=== PATIENT | female | born 1955 | race Caucasian/White ===

== ENCOUNTER 2016-06-30 11:09 | Outpatient (CLI) | payer OTHER ==
[~2016-06-30] VITALS: Ht 160 cm; Wt 120.0 kg
[2016-06-30] VITALS (21 sets, daily range): BP systolic 130–174; BP diastolic 54–78; PULSE 55–69; RESP 15–44; TEMP 98.4; O2SAT 93–100; Ht 160 cm; Wt 120.0 kg
[~2016-06-30 11:09] MED LIST: ASPI325T PO; ATEN100T PO; FLUO20CA30 PO; HYDR-4009 PO; NORMAL SALINE 1,000 ML IV SCH; OMEP20CA10 PO; TRIA1TAB3 PO
--- NOTE | 2016-06-30 11:16 | NUR ---
Admit Pt admitted to room 122 at this time via wc. Pt transferred to bed with assist x1 and unsteady gait. Knee brace noted to lower extremity. Will continue to monitor.
--- NOTE | 2016-06-30 11:21 | NUR ---
ADMIT-ADDITIONAL PT WEARING LEFT ANKLE BRACE AND HEART MONITOR. TAPE THROUGHOUT BODY FROM REHAB FOR NERVE CONTROL.
[2016-06-30 11:54] LABS: BASOPHILS % (AUTO) 0.4 % (0-2); EOSINOPHILS # (AUTO) 0.3 T/MM3 (0-0.5); EOSINOPHILS % (AUTO) 3.6 % (0-4); HCT - HEMATOCRIT 35.4 % (36-46); IMMATURE GRANULOCYTE # (AUTO) 0.01 T/MM3 (0.00-0.03); IMMATURE GRANULOCYTE % (AUTO) 0.1 % (0.0-0.5); LYMPHOCYTES # (AUTO) 1.6 T/MM3 (1-4.8); LYMPHOCYTES % (AUTO) 22.2 % (23-45); MEAN CORPUSCULAR HGB 30.1 UUG (26-34); MEAN CORPUSCULAR HGB CONC(MCHC 33.9 GM/DL (31-37); MEAN CORPUSCULAR VOLUME 88.7 UM3 (80-100); MONOCYTES # (AUTO) 0.5 T/MM3 (0-0.8); MONOCYTES % (AUTO) 6.5 % (0-9.0); NEUTROPHILS #(AUTO)-ABSOLUTE 4.9 T/MM3 (1.8-7.7); NEUTROPHILS % (AUTO) 67.2 % (33-66); RED BLOOD COUNT 3.99 M/MM3 (4.00-5.20); WBC - WHITE BLOOD COUNT 7.3 T/MM3 (4.5-11.0)
[2016-06-30 12:02] LABS: ANION GAP 11 MEQ/L (5-15); BUN/CREATININE RATIO 21 RATIO (6-26); CALCIUM 9.5 MG/DL (8.4-10.2); CHLORIDE 96 MEQ/L (98-107); CO2 - CARBON DIOXIDE 23 MEQ/L (22-30); GLOMERULAR FILTRATION RATE 56; GLUCOSE 103 MG/DL (65-110); POTASSIUM 4.1 MEQ/L (3.6-5); SODIUM 130 MEQ/L (134-144)
--- NOTE | 2016-06-30 12:25 | NUR ---
MACHINE SIZER REVIEWED ALLERGY WITH Samuel MINA RN. PT WILL RECEIVE BENADRYL IN MACHINE SIZER.
--- NOTE | 2016-06-30 12:30 | NUR ---
TRANSFER TO PROCESS CONTROL ENGINEER. PT AMBULATORY WITH PERSONAL WHEELED WALKER TO CART. PT A&OX3. DENIES SOA, CP AND N/V.
[2016-06-30] MEDS ORDERED: SALINE FLUSH 10ml SYRINGE ONE ×2 (12:33→12:37)
[2016-06-30] MEDS ORDERED: FENTANYL 100mcg/2ml INJECTION ONE ×2 (12:36→13:12)
[2016-06-30] MEDS ORDERED: MIDAZOLAM 2mg/2ml INJECTION ONE (12:37)
[2016-06-30] MEDS ORDERED: HEPARIN 1,000units in NS 500ml BAG IV ONE (12:38)
[2016-06-30] MEDS ORDERED: LIDOCAINE 1% (10mg/ml) 30ml SDV ONE (12:38)
[2016-06-30] MEDS ORDERED: DiphenhydrAMINE 50 MG/ML INJECTION ONE (12:41)
--- NOTE | 2016-06-30 12:50 | NUR ---
CHAKA NULL ATTEMPTED TO VISIT PATIENT, SHE IS IN THE BAND SAW OPERATOR AT THIS TIME. NO FAMILY PRESENT IN THE ROOM.
[2016-06-30] MEDS ORDERED: IOHEXOL 350mg/ml 200ml BOTTLE ONE (13:20)
[2016-06-30] MEDS ORDERED: PROMETHAZINE 25 MG INJECTION IV PRN (13:30)
[2016-06-30] MEDS ORDERED: ATROPINE 1 MG/ML VIAL IV PRN (13:30)
[2016-06-30] MEDS ORDERED: BISACODYL 5 MG E.C. TABLET PO PRN (13:30)
[2016-06-30] MEDS ORDERED: ONDANSETRON 4mg/2ml INJECTION IV PRN (13:30)
[2016-06-30] MEDS ORDERED: LORAZEPAM 2 MG/ML INJECTION IV PRN (13:30)
[2016-06-30] MEDS ORDERED: LORAZEPAM 1 MG TABLET PO PRN (13:30)
[2016-06-30] MEDS ORDERED: MORPHINE SULFATE 4 MG SYRINGE IV PRN (13:30)
[2016-06-30] MEDS ORDERED: NITROGLYCERIN 0.4 MG SUBLINGUAL TABLET SL PRN (13:30)
[2016-06-30] MEDS ORDERED: HYDROCODONE/APAP 5 mg/325 mg TABLET PO PRN ×2 (13:30)
[2016-06-30] MEDS ORDERED: BISACODYL 10 MG SUPPOSITORY RECTALLY PRN (13:30)
[2016-06-30] MEDS ORDERED: MAG-AL + SIM LIQUID 30 ML UDC PO PRN (13:30)
[2016-06-30] MEDS ORDERED: METOCLOPRAMIDE 10mg/2ml INJECTION IV PRN (13:30)
[2016-06-30] MEDS ORDERED: MILK OF MAGNESIA 30 ML SUSP PO PRN (13:30)
[2016-06-30] MEDS ORDERED: ACETAMINOPHEN 325 MG TABLET PO PRN (13:30)
--- NOTE | 2016-06-30 13:45 | NUR ---
RECEIVED FROM DIRECTOR CORPORATE. PT A&OX3. TRANSFERRED FROM CART TO BED X3 ASSIST. PT IS CRYING, REPORTING HIP PAIN.
[2016-06-30] MEDS: MORPHINE SULFATE 4 MG SYRINGE IV PRN ×2 (13:47→15:54)
--- NOTE | 2016-06-30 14:05 | NUR ---
PAIN PT REPORTING PAIN 10/10 IN RT HIP. PT REPORTS THIS IS DUE TO LIMITED MOVEMENT. RN ADMINISTERED PRN MORPHINE AND NORCO. WILL CONTINUE TO MONITOR.
--- NOTE | 2016-06-30 14:09 | NUR ---
CHAKA NULL IN TO VISIT PATIENT, SHE IS A&O. IS AT THE BEDSIDE. PATIENT PLANS TO DISCHARGE HOME, SAID THAT HE CAN HELP HER AND HAS TAKEN A COUPLE DAYS OFF WORK. CM CONTACT INFORMATION GIVEN. MARION SIGNED. LACE SCORE IS 1, NO FURTHER FOLLOW UP IS INDICATED. Addendum: 06/30/16 at 1410 by WILFRED HASKINS RN Amended: Links added.
--- NOTE | 2016-06-30 14:31 | CVPROF ---
DATE OF PROCEDURE June 30, 2016 HISTORY The patient is a 60-year-old lady with history of recurrent TIAs and was referred for further evaluation by carotid angiogram. Informed consent was obtained after explaining the procedure and the potential risks to the patient who agreed to proceed with the procedure. PROCEDURE 1. Aortic arch angiography by placing catheter in aortic arch. 2. Selective carotid angiography by placing catheter in right and left common carotid arteries. 3. Right femoral angiography to visualize the vessel for Mynx deployment. 4. Successful Mynx deployment for hemostasis. TECHNIQUE She was prepped and draped in the usual sterile techniques. Conscious sedation was performed using Versed and fentanyl. 1% lidocaine was used for local anesthesia. Using modified Seldinger technique, arterial access was obtained into the right femoral artery with placement of a 6-Uzbek arterial sheath. AORTIC ARCH ANGIOGRAPHY Aortic arch angiography showed patent brachiocephalic with left common carotid artery coming off of the brachiocephalic artery. Left subclavian artery was patent. SELECTIVE CAROTID ANGIOGRAPHY Right common carotid artery was free of significant lesions. Right internal carotid artery is patent with no significant lesions. Right external carotid artery is patent with no significant lesions. Left common carotid artery is free of significant lesions. Left internal carotid artery is free of significant lesions. Left external carotid artery has about 30% stenosis. Right femoral angiography showed patent common femoral, proximal SFA and profunda and therefore Mynx was used for hemostasis. IMPRESSION 1. No significant carotid obstructive disease. 2. Successful Mynx deployment for hemostasis. PLAN Medical management. CHIDI
--- NOTE | 2016-06-30 14:32 | TEEF ---
DATE OF PROCEDURE June 30, 2016 HISTORY The patient is a 61-year-old lady with recurrent TIAs and was referred for further evaluation by transesophageal echocardiogram. Informed consent was obtained after explaining the procedure and the potential risks to the patient who agreed to proceed with the procedure. PROCEDURE Transesophageal echocardiogram. DESCRIPTION OF PROCEDURE Conscious sedation was performed using Versed and fentanyl. Cetacaine spray was used for pharyngeal anesthesia. Probe was advanced into the esophagus and stomach and images were obtained in multiple planes. Left atrium is normal. Left ventricular end-diastolic dimension is normal. Left ventricular wall thickness is normal. LV systolic function is normal with ejection fraction of about 65%. Right atrium is normal. Right ventricle is normal. Aortic root dimension is normal. There is no thrombus or mass in left atrium, left atrial appendage or left ventricle. Mitral valve is morphologically normal with mwwk-ju-dbhxpbot mitral regurgitation. Aortic valve is a trileaflet structure with no stenosis. Trace of aortic insufficiency is present. Tricuspid valve shows mild tricuspid regurgitation. Pulmonary valve appears to be normal. There is no pericardial effusion. Agitated saline was injected which showed no evidence of gwcfa-hq-xsas shunt. Descending thoracic aorta appears to be free of significant atherosclerosis. IMPRESSION 1. Normal LV systolic function with ejection fraction of 65%. 2. No intracardiac thrombus or mass. 3. No evidence of bvxjq-pl-scfa shunt using agitated saline. 4. Yprl-yl-pgjubftk mitral regurgitation. 5. Trace of aortic insufficiency. 6. Mild tricuspid regurgitation. MTDD
--- NOTE | 2016-06-30 16:00 | NUR ---
PAIN PT CONTINUES TO REPORT PAIN 7-10/10 IN RIGHT HIP. PT HAS BEEN REPOSITIONED SEVERAL TIMES AND ROLLED FOR [facility]ARE. PT REPORTS MOVEMENT RELIEVES PAIN. PRN TYLENOL AND MORPHINE GIVEN. WILL CONTINUE TO MONITOR.
--- NOTE | 2016-06-30 18:45 | NUR ---
STATUS/DISCHARGE PT IS A&OX3. PT REPORTS PAIN AT 3/10, "THIS IS TOLERABLE AND SOMEWHAT NORMAL I AM WAITING FOR HIP, KNEE AND ANKLE SURGERY." RT GROIN SITE IS ASYMPTOMATIC, DRESSING IS C/D/I. DISCONTINUED LT AC IV, CATHETER INTACT, SITE IS ASYMPTOMATIC. PT APPETITE GOOD FOR DINNER. REVIEWED DISCHARGE INSTRUCTIONS WITH PT AND , ANSWERING ALL QUESTIONS. PER DR. LIMON ORDER, PT IS TO CONTINUE TO WEAR HEART MONITOR UNTIL FOLLOW-UP APPT. PT AND COMMIT TO FOLLOW-UP APPT. RN PROVIDED MYNX BROCHURE, ENCOURAGING PT TO PLACE CARD IN [place]. PT COMMITS TO PLACE CARD IN [place]. RN ASSISTED PT WITH DRESSING. PT TRANSPORTED BY WHEELCHAIR TO ED ENTRANCE. DRIVING FAMILY CAR.
[2016-07-01] MEDS ORDERED: OMEPRAZOLE 20 MG CAPSULE PO SCH (06:30)
[2016-07-01] MEDS ORDERED: TRIAMTERENE/HCTZ 37.5mg/25mg TABLET PO SCH (09:00)
[2016-07-01] MEDS ORDERED: ASPIRIN 325 MG TABLET PO SCH (09:00)
[2016-07-01] MEDS ORDERED: FLUOXETINE 20 MG CAPSULE PO SCH (09:00)
[2016-07-01] MEDS ORDERED: ATENOLOL 100 MG TABLET PO SCH (09:00)
--- NOTE | 2016-07-02 11:28 | NUR ---
ATTEMPTED POST HOSPITAL FOLLOW UP PHONE CALL #1, NO ANSWER, NO MACHINE TO LEAVE A MESSAGE.
== END 2016-06-30 18:45 | disposition home or self-care (01) ==
LOC: CATH 11:09 → SRG 11:10 → CATH 18:45
PROVIDERS: ATTEND Internal Medicine Cardiovascular Disease
DX: I65.22 Occlusion and stenosis of left carotid artery (principal); Z86.73 Personal history of transient ischemic attack (TIA), and cerebral infarction without residual deficits; I08.1 Rheumatic disorders of both mitral and tricuspid valves; I10 Essential (primary) hypertension; I27.2 Other secondary pulmonary hypertension; E78.2 Mixed hyperlipidemia; K21.9 Gastro-esophageal reflux disease without esophagitis; Z79.82 Long term (current) use of aspirin; Z79.899 Other long term (current) drug therapy; Z82.3 Family history of stroke; Z82.49 Family history of ischemic heart disease and other diseases of the circulatory system
CPT/HCPCS: 36222; 80048; 85025; 93005; 93312; 93320; 93325; J1200; J1644; J2250; J2930; J3010; J7030; Q9967

== ENCOUNTER 2016-08-12 06:02 | Outpatient (CLI) | payer OTHER ==
[2016-08-12] VITALS (9 sets, daily range): BP systolic 142–172; BP diastolic 62–82; PULSE 60–73; RESP 19–20; TEMP 98–98.5; O2SAT 92–98; Ht 160 cm; Wt 119.9 kg
[~2016-08-12] VITALS: Ht 160 cm; Wt 119.9 kg
[~2016-08-12 06:02] MED LIST changes: -NORMAL SALINE 1,000 ML IV SCH; +P-EP-93 PO; +SALINE FLUSH 10ml SYRINGE IVF PRN
--- NOTE | 2016-08-12 06:10 | NUR ---
ADMIT PT ADMITTED TO ROOM 118 AT THIS TIME. AND DAUGHTER PRESENT IN ROOM UPON ADMIT. PT ALERT AND ORIENTED. WILL CONTINUE TO MONITOR.
[2016-08-12] MEDS ORDERED: AMLO5TAB2 PO (06:31)
[2016-08-12] MEDS ORDERED: PRED20TA PO (06:31)
[2016-08-12] MEDS ORDERED: NORMAL SALINE 1,000 ML IV ONE (07:00)
[2016-08-12 07:07] LABS: HCT - HEMATOCRIT 32.3 % (36-46); HGB - HEMOGLOBIN 10.9 GM/DL (12-16); MEAN CORPUSCULAR HGB CONC(MCHC 33.7 GM/DL (31-37); MEAN PLATELET VOLUME 10.9 UM3 (9.4-12.4); RED BLOOD COUNT 3.63 M/MM3 (4.00-5.20); WBC - WHITE BLOOD COUNT 7.7 T/MM3 (4.5-11.0)
[2016-08-12 07:16] LABS: ANION GAP 13 MEQ/L (5-15); BUN/CREATININE RATIO 26 RATIO (6-26); CALCIUM 9.5 MG/DL (8.4-10.2); CHLORIDE 101 MEQ/L (98-107); CO2 - CARBON DIOXIDE 23 MEQ/L (22-30); CREATININE 0.8 MG/DL (0.7-1.2); GLOMERULAR FILTRATION RATE 73; GLUCOSE 123 MG/DL (65-110); POTASSIUM 4.4 MEQ/L (3.6-5); SODIUM 137 MEQ/L (134-144)
[2016-08-12] MEDS ORDERED: LIDOCAINE 1% (10mg/ml) 30ml SDV ONE (07:18)
[2016-08-12] MEDS ORDERED: HEPARIN 1,000units in NS 500ml BAG IV ONE (07:18)
[2016-08-12] MEDS ORDERED: DiphenhydrAMINE 50 MG/ML INJECTION ONE (07:18)
[2016-08-12 07:20] LABS: LYMPHOCYTES # (MANUAL) 0.6 T/MM3 (1-4.8); MONOCYTES # (MANUAL) 0.2 T/MM3 (0-0.8); NEUTROPHILS #(MANUAL)-ABSOLUTE 6.9 T/MM3 (1.8-7.7); TOTAL CELLS COUNTED 100 %
[2016-08-12] MEDS ORDERED: IOHEXOL 350mg/ml 200ml BOTTLE ONE (07:20)
[2016-08-12] MEDS ORDERED: FENTANYL 100mcg/2ml INJECTION ONE ×2 (07:25→08:07)
[2016-08-12] MEDS ORDERED: MIDAZOLAM 2mg/2ml INJECTION ONE (07:25)
[2016-08-12] MEDS ORDERED: VERAPAMIL 5mg/2ml INJECTION IV ONE (07:28)
[2016-08-12] MEDS ORDERED: NITROGLYCERIN 50mg/10ml INJECTION IV ONE (07:28)
--- NOTE | 2016-08-12 07:36 | NUR ---
TO HEART CATH PATIENT TAKEN TO HEART CATH AT THIS TIME VIA CART AND SENIOR C WEB DEVELOPER STAFF. CHART, CONSENT AND BP CUFF SENT WITH PATIENT. PT STABLE AND ON ROOM AIR AT TIME OF TRANSFER. WILL CONTINUE TO MONITOR.
[2016-08-12] MEDS ORDERED: LORAZEPAM 0.5 MG TABLET PO PRN (08:15)
[2016-08-12] MEDS ORDERED: ACETAMINOPHEN 325 MG TABLET PO PRN (08:15)
[2016-08-12] MEDS ORDERED: MILK OF MAGNESIA 30 ML SUSP PO PRN (08:15)
[2016-08-12] MEDS ORDERED: BISACODYL 5 MG E.C. TABLET PO PRN (08:15)
[2016-08-12] MEDS ORDERED: HYDROCODONE/APAP 5 mg/325 mg TABLET PO PRN (08:15)
[2016-08-12] MEDS ORDERED: BISACODYL 10 MG SUPPOSITORY RECTALLY PRN (08:15)
[2016-08-12] MEDS ORDERED: ATROPINE 1 MG/ML VIAL IV PRN (08:15)
[2016-08-12] MEDS ORDERED: METOCLOPRAMIDE 10mg/2ml INJECTION IV PRN (08:15)
[2016-08-12] MEDS ORDERED: NITROGLYCERIN 0.4 MG SUBLINGUAL TABLET SL PRN (08:15)
[2016-08-12] MEDS ORDERED: LORAZEPAM 2 MG/ML INJECTION IV PRN (08:15)
[2016-08-12] MEDS ORDERED: MORPHINE SULFATE 4 MG SYRINGE IV PRN ×2 (08:15)
[2016-08-12] MEDS ORDERED: MAG-AL + SIM LIQUID 30 ML UDC PO PRN (08:15)
[2016-08-12] MEDS ORDERED: PROMETHAZINE 25 MG INJECTION IV PRN (08:15)
[2016-08-12] MEDS ORDERED: ONDANSETRON 4mg/2ml INJECTION IV PRN (08:15)
--- NOTE | 2016-08-12 09:06 | CVPROF ---
DATE OF PROCEDURE August 12, [address] Naina Luciano The patient is a pleasant 60-year-old lady with abnormal stress test and was referred for further evaluation by cardiac catheterization and possible intervention. Informed consent was obtained after explaining the procedure and the potential risks to the patient who agreed to proceed with the procedure. PROCEDURE 1. Left heart catheterization. 2. Coronary angiography. 3. Left ventriculography. TECHNIQUE The patient was prepped and draped in the usual sterile techniques. 1% lidocaine was used for local anesthesia. Using modified Seldinger technique, arterial access was obtained into the right radial artery with placement of a 6-Martiniquais arterial sheath. Conscious sedation was performed using Versed and fentanyl. 3000 units of heparin, 300 mcg of nitroglycerin, and 2.5 mg of verapamil were given through the arterial sheath. LEFT VENTRICULOGRAPHY Left ventriculography in single-plane ASHLEY shallow projection showed normal LV systolic function with ejection fraction of 65% with no mitral regurgitation or gradient across the aortic valve. LVEDP was about 35. CORONARY ANGIOGRAPHY Left main was free of significant lesions. Left anterior descending artery was occluded after the first diagonal with late filling of the LAD through the sats-bo-ztfi collaterals. First diagonal had about 70% ostial stenosis. Left circumflex artery had about 20% stenosis which consisted mainly of a large marginal. Right coronary artery was dominant with 90% stenosis. The patient tolerated the procedure well with no complications. IMPRESSION 1. Multivessel coronary artery disease as described above. 2. Normal LV systolic function with ejection fraction of 65%. 3. Elevated LV end-diastolic pressure. PLAN Will consult cardiovascular surgery for possible surgical revascularization of her coronary artery disease. CHIDI
--- NOTE | 2016-08-12 10:30 | NUR ---
DISMISSAL PATIENT DISMISSED TO [facility] VIA EMS AND CART. PT STABLE AND ON ROOM AIR AT TIME OF DISMISSAL. PACKETS TO EMS AND [place] SENT WITH PATIENT. REPORT GIVEN TO PARAMEDICS AT TIME OF TRANSFER. IV CATHETER REMAINS INTACT FOR TRANSPORT. PATIENT GIVEN EDUCATION ON TRANSFER, REASON FOR TRANSFER, ETC. PATIENT AND FAMILY VERBALIZED UNDERSTANDING. REPORT CALLED TO LAURA POLLARD AT [facility].
== END 2016-08-12 10:30 | disposition short-term general hospital (02) ==
LOC: SRG 06:02 → CATH 06:02
PROVIDERS: ATTEND Internal Medicine Cardiovascular Disease
DX: I25.10 Atherosclerotic heart disease of native coronary artery without angina pectoris (principal); R94.39 Abnormal result of other cardiovascular function study; I10 Essential (primary) hypertension; I65.23 Occlusion and stenosis of bilateral carotid arteries; I27.2 Other secondary pulmonary hypertension; E78.2 Mixed hyperlipidemia; G45.9 Transient cerebral ischemic attack, unspecified; K21.9 Gastro-esophageal reflux disease without esophagitis; Z79.82 Long term (current) use of aspirin; Z79.52 Long term (current) use of systemic steroids; Z79.899 Other long term (current) drug therapy; Z82.3 Family history of stroke; Z82.49 Family history of ischemic heart disease and other diseases of the circulatory system
CPT/HCPCS: 36415; 80048; 85007; 85027; 93005; 93458; C1893; J1200; J1644; J2250; J2930; J3010; J3490; J7030; Q9967

== ENCOUNTER 2016-08-20 16:14 | Inpatient (IN) ==
[2016-08-27] MEDS ORDERED: FLEET PHOSPHO - SODA ENEMA 133ml PR PRN (05:00)
[2016-08-27] MEDS ORDERED: DOCUSATE SODIUM 100 MG CAPSULE PO PRN (05:00)
[2016-08-27] MEDS ORDERED: ONDANSETRON ODT 4 MG TABLET PO PRN (05:00)
[2016-08-27] MEDS ORDERED: LORazepam 0.5 MG TABLET PO PRN (05:00)
[2016-08-27] MEDS ORDERED: BISACODYL 10 MG SUPPOSITORY RECTALLY PRN (05:00)
[2016-08-27] MEDS: FUROSEMIDE 20 MG TABLET PO SCH ×3 (08:37→17:07)
[2016-08-27] MEDS: FLUoxetine 20 MG CAPSULE PO SCH (08:37)
[2016-08-27] MEDS: FERROUS SULFATE 324 MG TABLET PO SCH ×2 (08:38→18:01)
[2016-08-27] MEDS: ASCORBIC ACID 500 MG TABLET PO SCH (08:38)
[2016-08-27] MEDS: ENOXAPARIN 40 MG/0.4 ML INJECTION SQ SCH (08:38)
[2016-08-27] MEDS: HYDROCODONE/APAP 5mg/325mg TABLET PO PRN ×3 (08:47→21:42)
[2016-08-27] MEDS: ACETAMINOPHEN 325 MG TABLET PO SCH ×2 (08:48→13:10)
[2016-08-27] MEDS: ASPIRIN 81 MG CHEWABLE TABLET PO SCH (09:19)
[2016-08-27] MEDS ORDERED: ACETAMINOPHEN 325 MG TABLET PO PRN (16:03)
--- NOTE | 2016-08-27 16:28 | Progress Note ---
Subjective: Krysta is seen today in follow up. She continues to have intermittent vaginal prolapses and she had multiple episodes of urinary incontinence over night and she was unable to sleep. She attributes the difficulty sleeping to the hip pain and urinary urgency. Pelvic speculum exam was performed by Dr Mdconald and myself. Patient does have moderate vaginal prolapse with bearing down. Prolapse easily retracts at rest. No vaginal bleeding or pain. Bowels are moving regularly. Objective Vital signs: Temp Pulse Resp BP Pulse Ox 97.9 F 105 H 16 133/81 96 08/27/16 08:21 08/27/16 08:21 08/27/16 08:21 08/27/16 08:21 08/27/16 08:21 Height: 1.6 m Weight: 123.9 kg Body Mass Index: 48.4 - Constitutional Present: no acute distress, well nourished - Routine HEENT Exam Eye: Present: EOMI, PERRL - Routine Respiratory Exam Present: CTA bilaterally - Routine Cardiovascular Exam Present: RRR, S1, S2 - Routine Abdominal Exam Present: soft, normoactive bowel sounds - Routine Rectal Exam Patient deferred: visual exam Visual: Absent: black stool, bloody stool, alberto blood - Routine Exam Patient deferred: perineal exam Genitals image: 1 - Vaginal Prolapse Comments: Using a speculum noted to have vaginal prolapse. Appears to possibly be anteriorly. Unable to distinguish if this is uterus versus bladder. - Routine Back/Spine/Pelvis Exam Back/Spine: Present: full ROM - Routine Musculoskeletal Exam Musculoskeletal: limited range of motion (Right hip due to pain) - Routine Skin Exam Present: intact Comments: [place] to bilateral lower ext intact - Routine Neurological Exam Present: alert, oriented X3, CN II-XII intact - Routine Psychiatric Exam Present: normal affect, normal thought process Results - Labs CBC & Chem 7: 08/21/16 05:30 08/21/16 05:30 Assessment and Plan (1) Vaginal prolapse Current visit: Yes Status: Acute (2) Right hip pain Current visit: Yes Status: Acute (3) S/P CABG x 3 Current visit: Yes Status: Chronic (4) CAD (coronary artery disease) Current visit: Yes Status: Chronic (5) Osteoarthritis Current visit: Yes Status: Chronic (6) Hx-TIA (transient ischemic attack) Current visit: Yes Status: Resolved DVT Prophylaxis: Lovenox Assessment and Plan: 08/27/16 Continue with current plan of care. Encourage work with PT and OT for ongoing strengthening. Change Lasix time to 6 a.m. and 2 p.m. to avoid increased urination at night. Given findings of vaginal prolapse. Discussed that she will need follow-up with gynecology. Did discuss using estrogen cream topically. At this point she would like to try controlling urination better with the Ditropan. Change tylenol to PRN and continue with PRN [place] for better pain control Discussed and taught regarding [place]agle exercises to strengthen pelvic muscles. Lovenox subcutaneous daily for DVT prophylaxis. Will only need aspirin 81 milligrams at time of discharge. Will reevaluate patient tomorrow. May be able to remove lower extremity alexis. Sepsis Assessment - Evaluation Sepsis screening result: No Definite Risk - Focused Exam Vital Signs Temp Pulse Resp BP Pulse Ox 08/27/16 08:21 97.9 F 105 H 16 133/81 96 Hospital Course Summary Disclaimer: The visit summary below is not to be considered part of the above Progress Note. Hospital Course: 08/27/16 16:27 Continue with current plan of care. Encourage work with PT and OT for ongoing strengthening. Change Lasix time to 6 a.m. and 2 p.m. to avoid increased urination at night. Given findings of vaginal prolapse. Discussed that she will need follow-up with gynecology. Did discuss using estrogen cream topically. At this point she would like to try controlling urination better with the Ditropan. Discussed and taught regarding Keagle exercises to strengthen pelvic muscles. Lovenox subcutaneous daily for DVT prophylaxis. Will only need aspirin 81 milligrams at time of discharge. Will reevaluate patient tomorrow. May be able to remove lower extremity alexis. 08/21 Agree with admission to IRU for ongoing strengthening. Monitor six lower extremity post-op incisions. Alexis may be removed on August 29 as long as there is no concerns. Steri-strips to be placed at that time. Place Joseph wrap to left lower extremity to aid with swelling. Continue with scheduled Lasix 20 milligrams twice a day. Continue with oral potassium supplementation 10 milliequivalents twice a day. Will periodically monitor electrolytes. Lovenox SQ daily for DVT prophylaxis. Will only need ASA 81 mg at time of discharge. Continue to monitor bowel motivation as patient has had some mild diarrhea intermittently. Will decrease Colace to as needed. Prozac daily for depression. Encourage work with PT/OT for ongoing strengthening. The hospitalist services will continue to follow patient medically manage her existing comorbidities during her stay on the IRU unit At time of discharge medical care will return to primary care provider, Dr. Naina Luciano from [place], [place].
[2016-08-27] MEDS: OXYBUTYNIN XL 5 MG TABLET PO SCH (18:00)
[2016-08-27] MEDS: OMEPRAZOLE 20 MG CAPSULE PO SCH (19:45)
[2016-08-27] MEDS: POLYETHYL GLYCOL 3350 17gm PACKET PO SCH (21:44)
[2016-08-28] MEDS: HYDROCODONE/APAP 5mg/325mg TABLET PO PRN ×4 (02:10→22:59)
[2016-08-28] MEDS: OMEPRAZOLE 20 MG CAPSULE PO SCH (05:52)
[2016-08-28] MEDS: FUROSEMIDE 20 MG TABLET PO SCH ×2 (05:53→14:04)
[2016-08-28] MEDS: FERROUS SULFATE 324 MG TABLET PO SCH ×2 (09:11→17:39)
[2016-08-28] MEDS: ASPIRIN 81 MG CHEWABLE TABLET PO SCH (09:11)
[2016-08-28] MEDS: FLUoxetine 20 MG CAPSULE PO SCH (09:12)
[2016-08-28] MEDS: OXYBUTYNIN XL 5 MG TABLET PO SCH (09:12)
[2016-08-28] MEDS: ASCORBIC ACID 500 MG TABLET PO SCH (09:12)
[2016-08-28] MEDS: ENOXAPARIN 40 MG/0.4 ML INJECTION SQ SCH (09:12)
--- NOTE | 2016-08-28 16:30 | Progress Note ---
Subjective: Krysta is seen today in follow up. Overall she feels that vaginal prolapse has improved today. She is pleased to report that frequent urination was less over night. No chest pain, shortness of breath or other problems. [place] to bilateral lower extremities appear to be well-healed Objective Vital signs: Temp Pulse Resp BP Pulse Ox 98.2 F 99 18 121/68 98 08/28/16 08:52 08/28/16 08:52 08/28/16 08:52 08/28/16 08:52 08/28/16 08:52 Height: 1.6 m Weight: 123.9 kg Body Mass Index: 48.4 - Constitutional Present: no acute distress, well nourished - Routine Respiratory Exam Present: CTA bilaterally - Routine Cardiovascular Exam Present: RRR, S1, S2 - Routine Abdominal Exam Present: soft, normoactive bowel sounds - Routine Extremities Exam Present: full ROM, tenderness (right hip) - Routine Back/Spine/Pelvis Exam Back/Spine: Present: full ROM - Routine Skin Exam Present: intact Comments: Alexis to bilateral lower extremity incisions appear well-healed - Routine Neurological Exam Present: alert, oriented X3, CN II-XII intact Results - Labs CBC & Chem 7: 08/21/16 05:30 08/21/16 05:30 Assessment and Plan (1) Vaginal prolapse Current visit: Yes Status: Acute (2) Right hip pain Current visit: Yes Status: Acute (3) S/P CABG x 3 Current visit: Yes Status: Chronic (4) CAD (coronary artery disease) Current visit: Yes Status: Chronic (5) Osteoarthritis Current visit: Yes Status: Chronic (6) Hx-TIA (transient ischemic attack) Current visit: Yes Status: Resolved Assessment and Plan: 08/28 Overall doing well. Continue with Ditropan to help with urination. Again, can consider an estrogen type cream for vaginal prolapse. At this point, patient would like to hold off on starting this. Order placed for nursing staff to remove all alexis to the lower extremities in place Steri-Strips over incisions. Continue with [place] for pain control. Encourage work with PT and OT for ongoing strengthening Sepsis Assessment - Evaluation Sepsis screening result: No Definite Risk - Focused Exam Vital Signs Temp Pulse Resp BP Pulse Ox 08/28/16 08:52 98.2 F 99 18 121/68 98 Respiratory exam: Present: CTA bilaterally Cardiovascular exam: Present: RRR, S1, S2 Hospital Course Summary Disclaimer: The visit summary below is not to be considered part of the above Progress Note. Hospital Course: 08/28 Overall doing well. Continue with Ditropan to help with urination. Again, can consider an estrogen type cream for vaginal prolapse. At this point, patient would like to hold off on starting this. Order placed for nursing staff to remove all alexis to the lower extremities in place Steri-Strips over incisions. Continue with [place] for pain control. Encourage work with PT and OT for ongoing strengthening 08/27/16 Continue with current plan of care. Encourage work with PT and OT for ongoing strengthening. Change Lasix time to 6 a.m. and 2 p.m. to avoid increased urination at night. Given findings of vaginal prolapse. Discussed that she will need follow-up with gynecology. Did discuss using estrogen cream topically. At this point she would like to try controlling urination better with the Ditropan. Discussed and taught regarding Keagle exercises to strengthen pelvic muscles. Lovenox subcutaneous daily for DVT prophylaxis. Will only need aspirin 81 milligrams at time of discharge. Will reevaluate patient tomorrow. May be able to remove lower extremity alexis. 08/21 Agree with admission to IRU for ongoing strengthening. Monitor six lower extremity post-op incisions. Alexis may be removed on August 29 as long as there is no concerns. Steri-strips to be placed at that time. Place Joseph wrap to left lower extremity to aid with swelling. Continue with scheduled Lasix 20 milligrams twice a day. Continue with oral potassium supplementation 10 milliequivalents twice a day. Will periodically monitor electrolytes. Lovenox SQ daily for DVT prophylaxis. Will only need ASA 81 mg at time of discharge. Continue to monitor bowel motivation as patient has had some mild diarrhea intermittently. Will decrease Colace to as needed. Prozac daily for depression. Encourage work with PT/OT for ongoing strengthening. The hospitalist services will continue to follow patient medically manage her existing comorbidities during her stay on the IRU unit At time of discharge medical care will return to primary care provider, Dr. Naina Luciano from [place], [place].
[2016-08-28] MEDS: POLYETHYL GLYCOL 3350 17gm PACKET PO SCH (21:42)
[2016-08-29] MEDS: FUROSEMIDE 20 MG TABLET PO SCH ×3 (04:52→13:47)
[2016-08-29] MEDS: OMEPRAZOLE 20 MG CAPSULE PO SCH ×2 (04:52→06:11)
[2016-08-29] MEDS: HYDROCODONE/APAP 5mg/325mg TABLET PO PRN ×4 (06:49→22:09)
[2016-08-29] MEDS: OXYBUTYNIN XL 5 MG TABLET PO SCH (08:33)
[2016-08-29] MEDS: FERROUS SULFATE 324 MG TABLET PO SCH ×2 (08:33→17:35)
[2016-08-29] MEDS: ASCORBIC ACID 500 MG TABLET PO SCH (08:34)
[2016-08-29] MEDS: FLUoxetine 20 MG CAPSULE PO SCH (08:34)
[2016-08-29] MEDS: ASPIRIN 81 MG CHEWABLE TABLET PO SCH (08:35)
[2016-08-29] MEDS: ENOXAPARIN 40 MG/0.4 ML INJECTION SQ SCH (09:14)
[2016-08-29] MEDS: POLYETHYL GLYCOL 3350 17gm PACKET PO SCH (21:58)
[2016-08-30] MEDS: HYDROCODONE/APAP 5mg/325mg TABLET PO PRN ×5 (02:13→23:02)
[2016-08-30] MEDS: OMEPRAZOLE 20 MG CAPSULE PO SCH (06:33)
[2016-08-30] MEDS: FUROSEMIDE 20 MG TABLET PO SCH ×2 (06:33→13:52)
[2016-08-30] MEDS: FERROUS SULFATE 324 MG TABLET PO SCH ×2 (09:45→17:53)
[2016-08-30] MEDS: FLUoxetine 20 MG CAPSULE PO SCH (09:46)
[2016-08-30] MEDS: ASCORBIC ACID 500 MG TABLET PO SCH (09:46)
[2016-08-30] MEDS: ASPIRIN 81 MG CHEWABLE TABLET PO SCH (09:46)
[2016-08-30] MEDS: OXYBUTYNIN XL 5 MG TABLET PO SCH (09:47)
[2016-08-30] MEDS: ENOXAPARIN 40 MG/0.4 ML INJECTION SQ SCH (09:47)
--- NOTE | 2016-08-30 11:43 | Progress Note ---
Subjective: Krysta is seen today in follow up for her CAD, recent vein harvest left leg and vaginal harvest. She is seen while resting in bed. She states that she did not sleep very well last night due to her chronic right hip pain for which is is suppose to have a hip replacement for with Dr. Albarado in the upcoming future. She states that she is pretty sleepy now because she just got her [place] for her pain. She denies any other complaints including no chest pain, shortness of breath, abdominal pain, nausea, vomiting or dysuria. No changes or new concerns with regard to her vaginal prolapse. She does express some concern about a new "lump" that she found on her left upper inner thigh at the location of the incision which she states is mildly tender with palpation. Appetite has been good and bowels are moving. No recent labs since 08/21 which showed anemia with hemoglobin at 9.6. On exam, she is resting and arouses easily with soft voice and touch. She is alert and orientated to person, place and time but is noted to repeat things occasionally. Cardiac exam reveals regular rate and rhythm and lungs are clear to auscultation bilaterally. Abdomen is soft, obese and nontender with active bowel sounds. Extensive ecchymosis noted to left leg with bandages clean, dry and intact. 2+ pedal pulses bilaterally and N/V intact. Concerning lump on left upper leg evaluated and is approximately [id number] just superior to the distal incision on the upper inner left thigh. No bleeding, discharge, erythema or swelling noted, though patient reports mild tenderness with palpation. Patient expresses concern about possible blood clot. Objective Vital signs: Temp Pulse Resp BP Pulse Ox 98 F 81 16 148/80 H 96 08/29/16 20:10 08/29/16 20:10 08/29/16 20:10 08/29/16 20:10 08/29/16 16:00 Height: 5 ft 3 in Weight: 123.9 kg Body Mass Index: 48.4 - Constitutional Present: no acute distress, well nourished, obese - Routine HEENT Exam Head: Present: normocephalic, atraumatic Eye: Absent: conjunctival icterus ENT: Present: mucous membranes moist - Routine Respiratory Exam Present: CTA bilaterally. Absent: accessory muscle use, respiratory distress, rhonchi, stridor, wheezes, crackles - Routine Cardiovascular Exam Present: RRR, S1, S2 - Routine Abdominal Exam Present: soft, normoactive bowel sounds, non distended, non tender - Routine Extremities Exam Present: pulses intact, normal capillary refill. Absent: cyanosis, extremity cold to touch Comments: tenderness to right hip - chronic-with movement; extensive ecchymosis noted to left leg secondary to recent vein harvesting. - Routine Musculoskeletal Exam Musculoskeletal: no clubbing or cyanosis, normal strength - Routine Skin Exam Present: dry, warm. Absent: cyanosis, erythema Comments: surigical incisions visualized and are clean, dry and intact; 2x3cm nodule noted to left inner upper thigh superior to distal incision without signs of infection, erythema, discharge, swelling or bleeding and mild tenderness with palpation. - Routine Neurological Exam Present: alert, oriented X3, moving all extremities - Routine Lymphatic Exam Lymphatic: Absent: lymphedema - Routine Psychiatric Exam Present: normal affect, cooperative Results - Labs CBC & Chem 7: 08/21/16 05:30 08/21/16 05:30 Assessment and Plan (1) Vaginal prolapse Current visit: Yes Status: Acute (2) S/P CABG x 3 Current visit: Yes Status: Chronic (3) Right hip pain Current visit: Yes Status: Acute (4) CAD (coronary artery disease) Current visit: Yes Status: Chronic (5) Hx-TIA (transient ischemic attack) Current visit: Yes Status: Resolved (6) Osteoarthritis Current visit: Yes Status: Chronic Assessment and Plan: 08/30/16 Overall doing well. Continue to encourage therapies for strengthening and improved functional abilities. Complains of chronic right hip pain secondary to OA and DJD. Encouraged scheduled follow up with Dr. Albarado for right hip replacement. No new concerns regarding vaginal prolapse. Continue with Ditropan to help with urination and discussed need for follow up with vascular ultrasound technologist following discharge. Again, can consider an estrogen type cream for vaginal prolapse. At this point, patient would like to hold off on starting this. Continue with [place] for pain control. Discussed risk of constipation with patient and she would like to hold off on scheduled bowel motivation at this time, preferring prune juice when needed. Patient expressed concern of possible blood clot in left upper medial thigh just superior to distal incision. Will obtain US for further evaluation. Labs on 08/21 revealed anemia with hemoglobin at 9.6. Will recheck CBC and BMP in AM to monitor blood counts, electrolytes and renal function. Sepsis Assessment - Evaluation Sepsis screening result: No Definite Risk - Focused Exam Respiratory exam: Present: CTA bilaterally Cardiovascular exam: Present: RRR, S1, S2 Hospital Course Summary Disclaimer: The visit summary below is not to be considered part of the above Progress Note. Hospital Course: 08/28 Overall doing well. Continue with Ditropan to help with urination. Again, can consider an estrogen type cream for vaginal prolapse. At this point, patient would like to hold off on starting this. Order placed for nursing staff to remove all dionicio to the lower extremities in place Steri-Strips over incisions. Continue with [place] for pain control. Encourage work with PT and OT for ongoing strengthening 08/27/16 Continue with current plan of care. Encourage work with PT and OT for ongoing strengthening. Change Lasix time to 6 a.m. and 2 p.m. to avoid increased urination at night. Given findings of vaginal prolapse. Discussed that she will need follow-up with gynecology. Did discuss using estrogen cream topically. At this point she would like to try controlling urination better with the Ditropan. Discussed and taught regarding Keagle exercises to strengthen pelvic muscles. Lovenox subcutaneous daily for DVT prophylaxis. Will only need aspirin 81 milligrams at time of discharge. Will reevaluate patient tomorrow. May be able to remove lower extremity dionicio. 08/21 Agree with admission to IRU for ongoing strengthening. Monitor six lower extremity post-op incisions. [place] may be removed on August 29 as long as there is no concerns. Steri-strips to be placed at that time. Place Joseph wrap to left lower extremity to aid with swelling. Continue with scheduled Lasix 20 milligrams twice a day. Continue with oral potassium supplementation 10 milliequivalents twice a day. Will periodically monitor electrolytes. Lovenox SQ daily for DVT prophylaxis. Will only need ASA 81 mg at time of discharge. Continue to monitor bowel motivation as patient has had some mild diarrhea intermittently. Will decrease Colace to as needed. Prozac daily for depression. Encourage work with PT/OT for ongoing strengthening. The hospitalist services will continue to follow patient medically manage her existing comorbidities during her stay on the IRU unit At time of discharge medical care will return to primary care provider, Dr. Naina Luciano from [place], [place].
[2016-08-30] MEDS: POLYETHYL GLYCOL 3350 17gm PACKET PO SCH ×2 (15:58→21:19)
[2016-08-30] MEDS: SULFAMETHOXAZOLE/TMP 800 MG/160 MG DS TABLET PO SCH (21:36)
[2016-08-31] MEDS: HYDROCODONE/APAP 5mg/325mg TABLET PO PRN ×4 (06:25→20:53)
[2016-08-31] MEDS: FUROSEMIDE 20 MG TABLET PO SCH ×2 (06:25→15:21)
[2016-08-31] MEDS: OMEPRAZOLE 20 MG CAPSULE PO SCH (06:26)
[2016-08-31] MEDS: ASPIRIN 81 MG CHEWABLE TABLET PO SCH (09:39)
[2016-08-31] MEDS: FERROUS SULFATE 324 MG TABLET PO SCH ×2 (09:39→17:44)
[2016-08-31] MEDS: OXYBUTYNIN XL 5 MG TABLET PO SCH (09:39)
[2016-08-31] MEDS: ASCORBIC ACID 500 MG TABLET PO SCH (09:39)
[2016-08-31] MEDS: FLUoxetine 20 MG CAPSULE PO SCH (09:39)
[2016-08-31] MEDS: SULFAMETHOXAZOLE/TMP 800 MG/160 MG DS TABLET PO SCH ×2 (09:40→20:55)
[2016-08-31] MEDS: ENOXAPARIN 40 MG/0.4 ML INJECTION SQ SCH (09:40)
--- NOTE | 2016-08-31 09:57 | Ultrasound Report ---
EXAM: US venous doppler LE LOCATION OF DICTATION: [place] HISTORY: recent surgery, left pain/swelling COMPARISON: No prior studies available for comparison. TECHNIQUE: Multiple real-time grayscale sonographic images were obtained of the left lower extremity with color flow and spectral analysis. FINDINGS: The left common femoral, femoral, deep femoral, popliteal, posterior tibial, and peroneal veins are widely patent without filling defects. These vessels demonstrate normal response to augmentation and compression. There are a few reactive appearing lymph nodes in the left inguinal region. Postoperative related fluid/hematoma is along the medial aspect of the leg and area of incision status post CABG. There are no abnormal fluid collections within the surrounding soft tissues. IMPRESSION: 1. No evidence for left lower extremity deep venous thrombosis. 2. Fluid collections/hematomas along the medial leg from prior surgery. .
[2016-08-31] MEDS: SALINE FLUSH 10ml SYRINGE IVF PRN ×2 (10:05→16:05)
[2016-08-31] MEDS: CEFTRIAXONE 1 G in NS 100 ML IV SCH (10:09)
[2016-08-31] MEDS ORDERED: Pharmacy Consult for Fall Risk MC PRN (13:04)
--- NOTE | 2016-08-31 13:28 | Progress Note ---
Subjective: Krysta is seen this morning following phone call from nursing staff reporting fever overnight. Her fever did increase to 101.5 and she was noted to have left lower extremity erythema at one of the post CABG harvest sites. She is noted to have some serosanguineous drainage from this site. All dionicio were removed on August 28 from all of these sites. She notes that she was not feeling well for the last day and has had a decreased appetite since yesterday. The WBC count was found to be elevated this morning. Objective Vital signs: Temp Pulse Resp BP Pulse Ox 97.7 F 91 16 108/51 95 08/31/16 08:00 08/31/16 08:00 08/31/16 08:00 08/31/16 08:00 08/30/16 20:57 Height: 1.6 m Weight: 123.9 kg Body Mass Index: 48.4 - Constitutional Present: no acute distress, well nourished, obese - Routine HEENT Exam Eye: Present: EOMI, PERRL - Routine Respiratory Exam Present: CTA bilaterally - Routine Cardiovascular Exam Present: RRR, S1, S2 - Routine Abdominal Exam Present: soft, normoactive bowel sounds - Routine Extremities Exam Comments: LLE revels erythema to the lower aspect of [place]. Drainage noted around harvest site incision. Results - Labs CBC & Chem 7: 08/31/16 01:00 08/31/16 01:00 Labs: Short CBC 08/31/16 Range/Units 01:00 WBC 14.6 H (4.5-11.0) T/MM3 Hgb 8.9 L (12-16) GM/DL Hct 27.9 L (36-46) % Plt Count 330 (130-400) T/MM3 BMP 08/31/16 01:00 Sodium 130 L Potassium 4.1 Chloride 100 Carbon Dioxide 19 L BUN 16.0 Creatinine 1.0 Glucose 101 Calcium 8.6 Assessment and Plan (1) Cellulitis Current visit: Yes Status: Acute (2) Vaginal prolapse Current visit: Yes Status: Acute (3) Right hip pain Current visit: Yes Status: Acute (4) S/P CABG x 3 Current visit: Yes Status: Chronic (5) CAD (coronary artery disease) Current visit: Yes Status: Chronic (6) Osteoarthritis Current visit: Yes Status: Chronic (7) Hx-TIA (transient ischemic attack) Current visit: Yes Status: Resolved (8) Urinary incontinence Current visit: Yes Status: Chronic Assessment and Plan: 08/31/16 Venous Doppler of the left lower extremity was negative for acute DVT. She was started on oral Bactrim overnight. Given continued fever. Will also add IV Rocephin 1 gram daily. Due to the increased pain in the left lower extremity. Physical therapy is on hold today. Continue with Ditropan to help with urination and discussed need for follow up with cotton jammer following discharge. Did discuss use of estrogen vaginal cream as another option for prolapse. Given acute leukocytosis. Will recheck CBC and BMP tomorrow morning Sepsis Assessment - Evaluation Sepsis screening result: Sepsis Risk - Focused Exam Vital Signs Temp Pulse Resp BP 08/31/16 08:00 97.7 F 91 16 108/51 Respiratory exam: Present: CTA bilaterally Cardiovascular exam: Present: RRR, S1, S2 Hospital Course Summary Disclaimer: The visit summary below is not to be considered part of the above Progress Note. Hospital Course: 08/31/16 Venous Doppler of the left lower extremity was negative for acute DVT. She was started on oral Bactrim overnight. Given continued fever. Will also add IV Rocephin 1 gram daily. Due to the increased pain in the left lower extremity. Physical therapy is on hold today. Continue with Ditropan to help with urination and discussed need for follow up with cotton jammer following discharge. Did discuss use of estrogen vaginal cream as another option for prolapse. Given acute leukocytosis. Will recheck CBC and BMP tomorrow morning 08/28 Overall doing well. Continue with Ditropan to help with urination. Again, can consider an estrogen type cream for vaginal prolapse. At this point, patient would like to hold off on starting this. Order placed for nursing staff to remove all dionicio to the lower extremities in place Steri-Strips over incisions. Continue with [place] for pain control. Encourage work with PT and OT for ongoing strengthening 08/27/16 Continue with current plan of care. Encourage work with PT and OT for ongoing strengthening. Change Lasix time to 6 a.m. and 2 p.m. to avoid increased urination at night. Given findings of vaginal prolapse. Discussed that she will need follow-up with gynecology. Did discuss using estrogen cream topically. At this point she would like to try controlling urination better with the Ditropan. Discussed and taught regarding Keagle exercises to strengthen pelvic muscles. Lovenox subcutaneous daily for DVT prophylaxis. Will only need aspirin 81 milligrams at time of discharge. Will reevaluate patient tomorrow. May be able to remove lower extremity dionicio. 08/21 Agree with admission to IRU for ongoing strengthening. Monitor six lower extremity post-op incisions. [place] may be removed on August 29 as long as there is no concerns. Steri-strips to be placed at that time. Place Joseph wrap to left lower extremity to aid with swelling. Continue with scheduled Lasix 20 milligrams twice a day. Continue with oral potassium supplementation 10 milliequivalents twice a day. Will periodically monitor electrolytes. Lovenox SQ daily for DVT prophylaxis. Will only need ASA 81 mg at time of discharge. Continue to monitor bowel motivation as patient has had some mild diarrhea intermittently. Will decrease Colace to as needed. Prozac daily for depression. Encourage work with PT/OT for ongoing strengthening. The hospitalist services will continue to follow patient medically manage her existing comorbidities during her stay on the IRU unit At time of discharge medical care will return to primary care provider, Dr. Naina Luciano from [place], [place].
[2016-09-01] MEDS: POLYETHYL GLYCOL 3350 17gm PACKET PO SCH ×2 (01:41→22:34)
[2016-09-01] MEDS: HYDROCODONE/APAP 5mg/325mg TABLET PO PRN ×4 (01:54→20:37)
[2016-09-01] MEDS: OMEPRAZOLE 20 MG CAPSULE PO SCH (06:50)
[2016-09-01] MEDS: FUROSEMIDE 20 MG TABLET PO SCH ×2 (06:50→14:39)
--- NOTE | 2016-09-01 08:25 | Progress Note ---
Subjective: Krysta was getting ready for the day. She has been coughing up clear sputum for about the last 20-30 min. She denies feeling short of breath. She states that she had been running some fevers, but hasn't this morning. We looked at her left lower extremity - she thinks that the drainage has increased and the redness has spread. There is more drainage today as well. The orthotic she wears has irritated the staple site, and she doesn't think she'll be able to wear it today - she won't be able to walk without her orthotic. She denies any abdominal or GI complaints. <CharanMick bakerbouchra Ji - 09/01/16 08:33> Objective Vital signs: Temp Pulse Resp BP Pulse Ox 99.1 F 85 20 117/58 96 09/01/16 08:00 09/01/16 08:00 09/01/16 08:00 09/01/16 08:00 09/01/16 08:00 <Hussein Garrett B - 09/01/16 16:02> Temp Pulse Resp BP Pulse Ox 99.9 F 80 16 113/61 93 08/31/16 16:15 08/31/16 16:15 08/31/16 16:15 08/31/16 16:15 08/31/16 16:15 <CharanKrysta D 09/01/16 08:33> Height: 1.6 m <CharanMick bakerbouchra Ji 09/01/16 08:33> Weight: 123.9 kg <Krysta Farrar 09/01/16 08:33> Body Mass Index: 48.4 <CharanKrysta D 09/01/16 08:33> - Constitutional Present: no acute distress, well nourished, obese <CharanKrysta D 09/01/16 08:33> - Routine HEENT Exam Head: Present: normocephalic <Krysta Farrar 09/01/16 08:33> Eye: Absent: conjunctival icterus, scleral injection <Krysta Farrar 08:33> - Routine Respiratory Exam Present: CTA bilaterally <Krysta Farrar 09/01/16 08:33> - Routine Cardiovascular Exam Present: S1, S2 <Krysta Farrar - 09/01/16 08:33> - Routine Abdominal Exam Present: soft, normoactive bowel sounds, tenderness, non tender <Krysta Farrar 09/01/16 08:33> - Routine Extremities Exam Present: pulses intact <Krysta Farrar 09/01/16 08:33> - Routine Musculoskeletal Exam Musculoskeletal: limited range of motion (left ankle - chronic) <Krysta Farrar 09/01/16 08:33> - Routine Skin Exam Present: erythema (LLE erythema has extended beyond the markings placed on her skin yesterday. There is clear, serous drainage, with a slight yellow tint. ) <Krysta Farrar 09/01/16 08:33> - Routine Neurological Exam Present: alert, oriented X3 <Krysta Farrar 09/01/16 08:33> - Routine Psychiatric Exam Present: normal affect, normal thought process <Krysta Farrar 09/01/16 08: 33> Results - Labs CBC & Chem 7: 09/01/16 04:13 09/01/16 04:13 <Hussein Garrett - 09/01/16 16:02> Labs: Short CBC 09/01/16 Range/Units 04:13 WBC 15.5 H (4.5-11.0) T/MM3 Hgb 10.1 L D (12-16) GM/DL Hct 31.3 L D (36-46) % Plt Count 391 (130-400) T/MM3 [facility] 09/01/16 04:13 Sodium 135 Potassium 4.0 Chloride 99 Carbon Dioxide 21 L BUN 12.0 Creatinine 0.9 Glucose 94 Calcium 9.4 D <GerryHussein Patrick - 09/01/16 16:02> Short CBC 09/01/16 Range/Units 04:13 WBC 15.5 H (4.5-11.0) T/MM3 Hgb 10.1 L D (12-16) GM/DL Hct 31.3 L D (36-46) % Plt Count 391 (130-400) T/MM3 [facility] 09/01/16 04:13 Sodium 135 Potassium 4.0 Chloride 99 Carbon Dioxide 21 L BUN 12.0 Creatinine 0.9 Glucose 94 Calcium 9.4 D <Krysta Farrar - 09/01/16 08:33> Assessment and Plan (1) Vaginal prolapse Current visit: Yes Status: Acute (2) S/P CABG x 3 Current visit: Yes Status: Chronic (3) Right hip pain Current visit: Yes Status: Acute (4) CAD (coronary artery disease) Current visit: Yes Status: Chronic (5) Hx-TIA (transient ischemic attack) Current visit: Yes Status: Resolved (6) Osteoarthritis Current visit: Yes Status: Chronic (7) Cellulitis Current visit: Yes Status: Acute (8) Urinary incontinence Current visit: Yes Status: Chronic <Hussein Garrett - 09/01/16 16:02> (1) Cellulitis Current visit: Yes Status: Acute LLE, graft site Rocephin started 08/31/16 (2) Vaginal prolapse Current visit: Yes Status: Acute (3) S/P CABG x 3 Current visit: Yes Status: Chronic (4) Right hip pain Current visit: Yes Status: Acute (5) CAD (coronary artery disease) Current visit: Yes Status: Chronic (6) Hx-TIA (transient ischemic attack) Current visit: Yes Status: Resolved (7) Osteoarthritis Current visit: Yes Status: Chronic (8) Urinary incontinence Current visit: Yes Status: Chronic <Krysta Farrar - 09/01/16 10:34> Assessment and Plan: LE Cellulitis -Concern for hospital acquired MRSA, will switch to Vanc, can keep rocephin for gram neg coverage, if not improving can add anaerobic coverage with flagyl -Will do LE sono to evaluate for DVT and possible abscess that may need drainage since having some discharge from wound -Mildly tender, pedal pulses palpable, pt has full sensation and mobility of leg and foot, clinically not consistent for compartment syndrome or nec fasc, will cont. to monitor closely -Discussed case with older as he was covering for [facility], he agreed with plan and noted that they would be happy to transfer pt back to [facility] for tx if infection got worse and needed further care <Hussein Garrett - 09/01/16 16:02> Increasing leukocytosis, redness, drainage to LLE -discussed with Dr. Garrett - He will plan on contacting cardiothoracic surgeon -will change Bactrim to Vancomycin (per pharmacy protocol). -Obtain blood cultures. -Continue Rocephin day #2 Check CXR d/t cough VSS - afebrile since evening of 08/30/16 <Krysta Farrar Margy - 09/01/16 10:36> Sepsis Assessment - Evaluation Sepsis screening result: No Definite Risk <Krysta Farrar Margy - 09/01/16 08:33> - Focused Exam Vital Signs Temp Pulse Resp BP Pulse Ox 09/01/16 08:00 99.1 F 85 20 117/58 96 <NathanjdHussein Patrick - 09/01/16 16:02> Respiratory exam: Present: CTA bilaterally <CharanMickKrysta D - 09/01/16 08:33> Cardiovascular exam: Present: RRR, S1, S2 <CharanMickKrysta D - 09/01/16 08:33> Hospital Course Summary Disclaimer: The visit summary below is not to be considered part of the above Progress Note. <Hussein Garrett - 09/01/16 16:02> The visit summary below is not to be considered part of the above Progress Note. <Mick Farrarbouchra Ji - 09/01/16 08:33> Hospital Course: 08/31/16 Venous Doppler of the left lower extremity was negative for acute DVT. She was started on oral Bactrim overnight. Given continued fever. Will also add IV Rocephin 1 gram daily. Due to the increased pain in the left lower extremity. Physical therapy is on hold today. Continue with Ditropan to help with urination and discussed need for follow up with educational psychology professor following discharge. Did discuss use of estrogen vaginal cream as another option for prolapse. Given acute leukocytosis. Will recheck CBC and BMP tomorrow morning 08/28 Overall doing well. Continue with Ditropan to help with urination. Again, can consider an estrogen type cream for vaginal prolapse. At this point, patient would like to hold off on starting this. Order placed for nursing staff to remove all dionicio to the lower extremities in place Steri-Strips over incisions. Continue with [place] for pain control. Encourage work with PT and OT for ongoing strengthening 08/27/16 Continue with current plan of care. Encourage work with PT and OT for ongoing strengthening. Change Lasix time to 6 a.m. and 2 p.m. to avoid increased urination at night. Given findings of vaginal prolapse. Discussed that she will need follow-up with gynecology. Did discuss using estrogen cream topically. At this point she would like to try controlling urination better with the Ditropan. Discussed and taught regarding [place] exercises to strengthen pelvic muscles. Lovenox subcutaneous daily for DVT prophylaxis. Will only need aspirin 81 milligrams at time of discharge. Will reevaluate patient tomorrow. May be able to remove lower extremity dionicio. 08/21 Agree with admission to IRU for ongoing strengthening. Monitor six lower extremity post-op incisions. [place] may be removed on August 29 as long as there is no concerns. Steri-strips to be placed at that time. Place Joseph wrap to left lower extremity to aid with swelling. Continue with scheduled Lasix 20 milligrams twice a day. Continue with oral potassium supplementation 10 milliequivalents twice a day. Will periodically monitor electrolytes. Lovenox SQ daily for DVT prophylaxis. Will only need ASA 81 mg at time of discharge. Continue to monitor bowel motivation as patient has had some mild diarrhea intermittently. Will decrease Colace to as needed. Prozac daily for depression. Encourage work with PT/OT for ongoing strengthening. The hospitalist services will continue to follow patient medically manage her existing comorbidities during her stay on the IRU unit At time of discharge medical care will return to primary care provider, Dr. Naina Luciano from [place], [place]. 09/01/16 10:36 ncreasing leukocytosis, redness, drainage to LLE -discussed with Dr. Garrett - He will plan on contacting cardiothoracic surgeon -will change Bactrim to Vancomycin (per pharmacy protocol). -Obtain blood cultures. -Continue Rocephin day #2 Check CXR d/t cough VSS - afebrile since evening of 08/30/16 <Krysta Farrar D - 09/01/16 10:36>
--- NOTE | 2016-09-01 09:13 | XRay Report ---
Indication: cough, leukocytosis PROCEDURE: XR chest 1V: Encounter: Initial Comparison: None Findings: Linear atelectasis or scarring in the left lower lobe. Right lung is clear. No pleural effusion or pneumothorax. Prior CABG. Heart size and mediastinal contours are within normal limits. Pulmonary vascularity is normal. Changes in both shoulders with chronic rotator cuff tears. Impression: No focal pneumonia or congestive failure. .
[2016-09-01] MEDS: ASCORBIC ACID 500 MG TABLET PO SCH (09:21)
[2016-09-01] MEDS: OXYBUTYNIN XL 5 MG TABLET PO SCH (09:21)
[2016-09-01] MEDS: FERROUS SULFATE 324 MG TABLET PO SCH ×2 (09:21→17:41)
[2016-09-01] MEDS: FLUoxetine 20 MG CAPSULE PO SCH (09:21)
[2016-09-01] MEDS: SULFAMETHOXAZOLE/TMP 800 MG/160 MG DS TABLET PO SCH (09:22)
[2016-09-01] MEDS: CEFTRIAXONE 1 G in NS 100 ML IV SCH (09:22)
[2016-09-01] MEDS: ENOXAPARIN 40 MG/0.4 ML INJECTION SQ SCH (09:23)
[2016-09-01] MEDS: ASPIRIN 81 MG CHEWABLE TABLET PO SCH (09:23)
--- NOTE | 2016-09-01 11:51 | IRU Progress Note ---
- Subjective/Serverity of Illness Pt resting currently. Worked with PT and OT today, tired. Exam Vital Signs: Temp Pulse Resp BP Pulse Ox 99.5 F 83 18 109/62 94 08/28/16 16:32 08/28/16 16:32 08/28/16 16:32 08/28/16 16:32 08/28/16 16:32 Height: 1.6 m Weight: 123.9 kg Body Mass Index: 48.4 - Constitutional Present: no acute distress, well nourished - Routine Respiratory Exam Present: CTA bilaterally. Absent: wheezes, crackles - Routine Cardiovascular Exam Present: RRR, no murmur Results - Labs CBC & Chem 7: 08/21/16 05:30 08/21/16 05:30 Sepsis Assessment - Evaluation Sepsis screening result: No Definite Risk - Focused Exam Vital Signs Temp Pulse Resp BP Pulse Ox 08/28/16 16:32 99.5 F 83 18 109/62 94 08/28/16 08:52 98.2 F 99 18 121/68 98 Respiratory exam: Present: CTA bilaterally Cardiovascular exam: Present: RRR, S1, S2 IRU A/P (1) Myopathy Current visit: Yes Status: Acute Cont with PT and OT plan of care. Pt is making progress with stamina and strength, see FIMs. (2) S/P CABG x 3 Current visit: Yes Status: Chronic Medical and cardiology management. DVT Prophylaxis: Lovenox - Course Hospital Course: Juan José Pearson MD:
[2016-09-01] MEDS: SALINE FLUSH 10ml SYRINGE IVF PRN (19:00)
[2016-09-01] MEDS: DiphenhydrAMINE 25 MG CAPSULE PO PRN (21:31)
[2016-09-02] MEDS: OMEPRAZOLE 20 MG CAPSULE PO SCH (06:21)
[2016-09-02] MEDS: FUROSEMIDE 20 MG TABLET PO SCH ×2 (06:21→14:16)
[2016-09-02] MEDS: HYDROCODONE/APAP 5mg/325mg TABLET PO PRN ×4 (06:39→21:50)
[2016-09-02] MEDS: DiphenhydrAMINE 25 MG CAPSULE PO PRN ×2 (06:50→22:02)
[2016-09-02] MEDS ORDERED: Pharmacy Consult for Fall Risk MC PRN (07:54)
--- NOTE | 2016-09-02 09:00 | Progress Note ---
Subjective: Krysta reports that her leg is doing better. It's not quite as swollen and the redness has faded. The pain has also improved. She still has quite a bit of drainage. No fevers or chills. No shortness of breath. She has noticed some tongue thickness and a funny feeling in her throat, and took a benadryl - she has a hx of reactions to a lot of different medications and thinks that the abx might be causing a rxn. <Krysta Farrar - 09/02/16 09:06> Objective Vital signs: Temp Pulse Resp BP Pulse Ox 98.1 F 94 18 116/61 90 09/02/16 07:44 09/02/16 07:44 09/02/16 07:44 09/02/16 07:44 09/02/16 07:44 <LetyKeznie L - 09/02/16 15:22> Temp Pulse Resp BP Pulse Ox 98.1 F 94 18 116/61 90 09/02/16 07:44 09/02/16 07:44 09/02/16 07:44 09/02/16 07:44 09/02/16 07:44 <Krysta Farrar - 09/02/16 09:06> Weight: 121.9 kg <Krysta Farrar 09/02/16 09:06> - Constitutional Present: no acute distress, well nourished, obese <Krysta Farrar 09/02/16 09:06> - Routine HEENT Exam Eye: Absent: conjunctival icterus <Krysta Farrar 09/02/16 09:06> - Routine Respiratory Exam Present: CTA bilaterally. Absent: respiratory distress <Krysta Farrar 10/12 10:44> - Routine Cardiovascular Exam Present: RRR, S1, S2 <Krysta Farrar 09/02/16 10:44> - Routine Abdominal Exam Present: non distended, non tender <Krysta Farrar 09/02/16 10:44> - Routine Extremities Exam Present: edema, pulses intact <Krysta Farrar 09/02/16 09:06> - Routine Skin Exam Comments: Exam focused on LLL: Erythema has faded and is receding compared to yesterday Swelling is about the same There is increased drainage, and there is a yellow tint to the serous fluid. No alberto purulence. Other incisions to sternum, left upper leg, and right leg are healing well. <Krysta Farrar - 09/02/16 10:44> - Routine Psychiatric Exam Present: normal affect, normal thought process, good insight, good judgment < Krysta Farrar - 09/02/16 09:06> Results - Labs CBC & Chem 7: 09/02/16 04:38 09/02/16 04:38 <Kenzie Davidson - 09/02/16 15:22> Labs: Short CBC 09/02/16 Range/Units 04:38 WBC 8.4 D (4.5-11.0) T/MM3 Hgb 8.7 L D (12-16) GM/DL Hct 27.1 L D (36-46) % Plt Count 320 (130-400) T/MM3 [facility] 09/02/16 04:38 Sodium 133 L Potassium 4.2 Chloride 100 Carbon Dioxide 21 L BUN 12.0 Creatinine 1.0 Glucose 86 Calcium 8.9 <Kenzie Davidson - 09/02/16 15:22> Short CBC 09/02/16 Range/Units 04:38 WBC 8.4 D (4.5-11.0) T/MM3 Hgb 8.7 L D (12-16) GM/DL Hct 27.1 L D (36-46) % Plt Count 320 (130-400) T/MM3 [facility] 09/02/16 04:38 Sodium 133 L Potassium 4.2 Chloride 100 Carbon Dioxide 21 L BUN 12.0 Creatinine 1.0 Glucose 86 Calcium 8.9 <Krysta Farrar - 09/02/16 09:06> Assessment and Plan (1) S/P CABG x 3 Current visit: Yes Status: Chronic (2) Myopathy Current visit: Yes Status: Acute (3) Cellulitis Current visit: Yes Status: Acute <Kenzie Davidson - 09/02/16 15:22> (1) Cellulitis Current visit: Yes Status: Acute (2) Vaginal prolapse Current visit: Yes Status: Acute (3) S/P CABG x 3 Current visit: Yes Status: Chronic (4) Right hip pain Current visit: Yes Status: Acute (5) CAD (coronary artery disease) Current visit: Yes Status: Chronic (6) Hx-TIA (transient ischemic attack) Current visit: Yes Status: Resolved (7) Osteoarthritis Current visit: Yes Status: Chronic (8) Urinary incontinence Current visit: Yes Status: Chronic <Krysta Farrar - 09/02/16 10:41> Assessment and Plan: I have independently evaluated and examined this patient. I reviewed the chart, the patient's history, and the [employer]'s documented findings as above. We discussed and formulated the assessment and plan as above with additions as below: Mrs. Arana described improvement in her leg as noted above. She denied chest pain or dyspnea. Cardiac rhythm is regular. Sternal incision and chest tube site are healing well. Proximal left thigh and right thigh incisions are clean and dry. Distal aspect of the left calf incision has small amount of serous drainage. There is mild erythema the lower one third of the left leg and increased edema left relative to right. Patient is hemodynamically stable and afebrile. Leukocytosis is improved significantly in the past 24 hours. Tolerating current antibiotics with antihistamines. Continue same. In addition to above problems please add: anemia, likely surgical blood loss and chronic kidney disease, stage III <Kenzie Davidson - 09/02/16 15:22> LLE Cellulitis -Continue Vancomycin (day #2) and Rocephin (day #3). Consider adding Flagyl for anaerobic coverage. -there is some concern about rxn to vancomycin. Pt reports a thick tongue and funny feeling in her throat - resolved with Benadryl. Typical response per patient - requests Claritin, which is what she takes at home. -erythema has improved compared to yesterday but there is more drainage - serous in nature and no purulent material to culture -leukocytosis has resolved and she has been afebrile x48 hours -venous doppler on 08/31/16 was negative for DVT -if worsens, could obtain CT of her leg with contrast or transfer back to [place] (as per Dr. Garrett's note from yesterday) -will discuss with Dr. Davidson <Krysta Farrar - 09/02/16 10:44> Sepsis Assessment - Evaluation Sepsis screening result: No Definite Risk <Krysta Farrar - 09/02/16 09:06> - Focused Exam Vital Signs Temp Pulse Resp BP Pulse Ox 09/02/16 07:44 98.1 F 94 18 116/61 90 <Kenzie Davidson - 09/02/16 15:22> Vital Signs Temp Pulse Resp BP Pulse Ox 09/02/16 07:44 98.1 F 94 18 116/61 90 <Krysta Farrar - 09/02/16 09:06> Respiratory exam: Present: CTA bilaterally <Krysta Farrar - 09/02/16 09:06> Cardiovascular exam: Present: RRR, S1, S2 <Krysta Farrar - 09/02/16 09:06> Hospital Course Summary Disclaimer: The visit summary below is not to be considered part of the above Progress Note. <Knezie Davidson - 09/02/16 15:22> The visit summary below is not to be considered part of the above Progress Note. <Krysta Farrar - 09/02/16 09:06> Hospital Course: 08/31/16 Venous Doppler of the left lower extremity was negative for acute DVT. She was started on oral Bactrim overnight. Given continued fever. Will also add IV Rocephin 1 gram daily. Due to the increased pain in the left lower extremity. Physical therapy is on hold today. Continue with Ditropan to help with urination and discussed need for follow up with publication specialist following discharge. Did discuss use of estrogen vaginal cream as another option for prolapse. Given acute leukocytosis. Will recheck CBC and BMP tomorrow morning 08/28 Overall doing well. Continue with Ditropan to help with urination. Again, can consider an estrogen type cream for vaginal prolapse. At this point, patient would like to hold off on starting this. Order placed for nursing staff to remove all alexis to the lower extremities in place Steri-Strips over incisions. Continue with [place] for pain control. Encourage work with PT and OT for ongoing strengthening 08/27/16 Continue with current plan of care. Encourage work with PT and OT for ongoing strengthening. Change Lasix time to 6 a.m. and 2 p.m. to avoid increased urination at night. Given findings of vaginal prolapse. Discussed that she will need follow-up with gynecology. Did discuss using estrogen cream topically. At this point she would like to try controlling urination better with the Ditropan. Discussed and taught regarding [place] exercises to strengthen pelvic muscles. Lovenox subcutaneous daily for DVT prophylaxis. Will only need aspirin 81 milligrams at time of discharge. Will reevaluate patient tomorrow. May be able to remove lower extremity alexis. 08/21 Agree with admission to IRU for ongoing strengthening. Monitor six lower extremity post-op incisions. Alexis may be removed on August 29 as long as there is no concerns. Steri-strips to be placed at that time. Place Joseph wrap to left lower extremity to aid with swelling. Continue with scheduled Lasix 20 milligrams twice a day. Continue with oral potassium supplementation 10 milliequivalents twice a day. Will periodically monitor electrolytes. Lovenox SQ daily for DVT prophylaxis. Will only need ASA 81 mg at time of discharge. Continue to monitor bowel motivation as patient has had some mild diarrhea intermittently. Will decrease Colace to as needed. Prozac daily for depression. Encourage work with PT/OT for ongoing strengthening. The hospitalist services will continue to follow patient medically manage her existing comorbidities during her stay on the IRU unit At time of discharge medical care will return to primary care provider, Dr. Naina Luciano from [place], [place]. 09/01/16 10:36 ncreasing leukocytosis, redness, drainage to LLE -discussed with Dr. Garrett - He will plan on contacting cardiothoracic surgeon -will change Bactrim to Vancomycin (per pharmacy protocol). -Obtain blood cultures. -Continue Rocephin day #2 Check CXR d/t cough VSS - afebrile since evening of 08/30/16 LE Cellulitis (Dr. Garrett) -Concern for hospital acquired MRSA, will switch to Vanc, can keep rocephin for gram neg coverage, if not improving can add anaerobic coverage with flagyl -Discussed case with older as he was covering for [facility], he agreed with plan and noted that they would be happy to transfer pt back to [facility] for tx if infection got worse and needed further care 09/02/16 09:06 LLE Cellulitis -Continue Vancomycin (day #2) and Rocephin (day #3). Consider adding Flagyl for anaerobic coverage. -there is some concern about rxn to vancomycin. Pt reports a thick tongue and funny feeling in her throat - resolved with Benadryl. Typical response per patient - requests Claritin, which is what she takes at home. -erythema has improved compared to yesterday but there is more drainage - serous in nature and no purulent material to culture -leukocytosis has resolved and she has been afebrile x48 hours -venous doppler on 08/31/16 was negative for DVT -if worsens, could obtain CT of her leg with contrast or transfer back to [place] (as per Dr. Garrett's note from yesterday) <Krysta Farrar - 09/02/16 10:44>
[2016-09-02] MEDS: ASCORBIC ACID 500 MG TABLET PO SCH (09:04)
[2016-09-02] MEDS: FERROUS SULFATE 324 MG TABLET PO SCH ×2 (09:04→17:49)
[2016-09-02] MEDS: OXYBUTYNIN XL 5 MG TABLET PO SCH (09:04)
[2016-09-02] MEDS: FLUoxetine 20 MG CAPSULE PO SCH (09:04)
[2016-09-02] MEDS: ASPIRIN 81 MG CHEWABLE TABLET PO SCH (09:05)
[2016-09-02] MEDS: ENOXAPARIN 40 MG/0.4 ML INJECTION SQ SCH (09:06)
[2016-09-02] MEDS ORDERED: LORATADINE 10 MG TABLET PO PRN (10:43)
[2016-09-02] MEDS: CEFTRIAXONE 1 G in NS 100 ML IV SCH (10:45)
--- NOTE | 2016-09-02 12:28 | IRU Progress Note ---
- Subjective/Serverity of Illness Pt on IV abx due to left leg drainage. Pain controlled with [place] 5;s. PT- mod I with walker. Stairs not possible yet. Walks up to 400 ft, ubt hasnot been able to due to cellulitis the last few days. OT-supervision eating and grooming and bathing Exam Vital Signs: Temp Pulse Resp BP Pulse Ox 98.1 F 94 18 116/61 90 09/02/16 07:44 09/02/16 07:44 09/02/16 07:44 09/02/16 07:44 09/02/16 07:44 Height: 1.6 m Weight: 121.9 kg Body Mass Index: 48.4 - Constitutional Present: no acute distress, well nourished, obese Results - Labs CBC & Chem 7: 09/02/16 04:38 09/02/16 04:38 Labs: Short CBC 09/02/16 Range/Units 04:38 WBC 8.4 D (4.5-11.0) T/MM3 Hgb 8.7 L D (12-16) GM/DL Hct 27.1 L D (36-46) % Plt Count 320 (130-400) T/MM3 BMP 09/02/16 04:38 Sodium 133 L Potassium 4.2 Chloride 100 Carbon Dioxide 21 L BUN 12.0 Creatinine 1.0 Glucose 86 Calcium 8.9 Sepsis Assessment - Evaluation Sepsis screening result: No Definite Risk - Focused Exam Vital Signs Temp Pulse Resp BP Pulse Ox 09/02/16 07:44 98.1 F 94 18 116/61 90 Respiratory exam: Present: CTA bilaterally Cardiovascular exam: Present: RRR, S1, S2 IRU A/P (1) Myopathy Current visit: Yes Status: Acute (2) S/P CABG x 3 Current visit: Yes Status: Chronic (3) Cellulitis Current visit: Yes Status: Acute Delay in d/c and will require iv antibiotics on d/c. May require at least one more week of care to establish control of infection. will need iv abx at home and will require homehealth care. DVT Prophylaxis: Lovenox - Course Hospital Course: Juan José Pearson MD:
[2016-09-02] MEDS: POLYETHYL GLYCOL 3350 17gm PACKET PO SCH (22:05)
[2016-09-03] MEDS: HYDROCODONE/APAP 5mg/325mg TABLET PO PRN ×4 (02:09→22:47)
[2016-09-03] MEDS: SALINE FLUSH 10ml SYRINGE IVF PRN (04:45)
--- NOTE | 2016-09-03 05:06 | IRU Progress Note ---
- Subjective/Serverity of Illness Patient resting in bed at time of visit. Has been working well with PT and OT. Increased pain in leg. Exam Vital Signs: - Normal Exams: Head: Normocephalic without trauma Chest/Respirations: Clear all [place], with good airflow, and symmetry bilaterally Cardiovascular: Regular rate and rhythm, without murmur or gallop, Pulses 2+ all extremities, capillary refill, <2 seconds all extremities Abdomen: Bowel sounds positive, soft, non-tender, non-distended, no hepatosplenomegaly, masses or bruits noted Integumentary: No rashes, hives, or bruising noted, hair and nails, without abnormality Neurological: Patient is alert, and oriented, cranial nerves, motor/sensory/ cerebellar, exams w/o gross deficits, to observation Psychiatric: Patient exhibits appropriate attention, emotion and affect Height: 1.6 m Weight: 122.9 kg Body Mass Index: 48.4 - Constitutional Present: no acute distress, well nourished, obese - Routine Neck Exam Present: trachea midline Results - Labs CBC & Chem 7: 09/02/16 04:38 09/02/16 04:38 Labs: Above labs reported her for wrong date. Labs below her for correct date. Laboratory Tests 08/31/16 08/31/16 01:00 01:00 WBC 14.6 H RBC 3.01 L Hgb 8.9 L Hct 27.9 L MCV 92.7 MCH 29.6 MCHC 31.9 RDW Std Deviation 45.7 Plt Count 330 MPV 10.0 Immature Gran % (Auto) 0.2 Neut % (Auto) 84.3 H Lymph % (Auto) 8.2 L Rogers % (Auto) 6.5 Eos % (Auto) 0.6 Baso % (Auto) 0.2 Neut # 12.3 H Lymph # 1.2 Rogers # 1.0 H Turbidity 20 Sodium 130 L Potassium 4.1 Chloride 100 Carbon Dioxide 19 L Anion Gap 11 BUN 16.0 Creatinine 1.0 GFR Calculation 56 BUN/Creatinine Ratio 16 Glucose 101 Calculated Osmolality 252 L Calcium 8.6 Sepsis Assessment - Evaluation Sepsis screening result: No Definite Risk - Focused Exam Vital Signs Temp Pulse Resp BP Pulse Ox 09/03/16 01:00 98.5 F 80 16 99/53 94 09/02/16 17:48 87 122/67 Respiratory exam: Present: CTA bilaterally Cardiovascular exam: Present: RRR, S1, S2 Capillary refill: < 2-3 Seconds IRU A/P (1) Myopathy Current visit: Yes Status: Acute PT and OT are working with patient per plan of care. Patient continues to improve, see FIM scores. Evaluate at team meeting on Wednesday. (2) S/P CABG x 3 Current visit: Yes Status: Chronic Managed by medical DVT Prophylaxis: Lovenox - Course Hospital Course: Juan José Pearson MD:
[2016-09-03] MEDS: FUROSEMIDE 20 MG TABLET PO SCH ×2 (06:16→14:14)
[2016-09-03] MEDS: OMEPRAZOLE 20 MG CAPSULE PO SCH (06:16)
[2016-09-03] MEDS: ASPIRIN 81 MG CHEWABLE TABLET PO SCH (08:55)
[2016-09-03] MEDS: OXYBUTYNIN XL 5 MG TABLET PO SCH (08:56)
[2016-09-03] MEDS: FERROUS SULFATE 324 MG TABLET PO SCH ×2 (08:57→17:50)
[2016-09-03] MEDS: ASCORBIC ACID 500 MG TABLET PO SCH (08:57)
[2016-09-03] MEDS: FLUoxetine 20 MG CAPSULE PO SCH (08:57)
[2016-09-03] MEDS: ENOXAPARIN 40 MG/0.4 ML INJECTION SQ SCH (08:58)
[2016-09-03] MEDS: CEFTRIAXONE 1 G in NS 100 ML IV SCH (10:06)
--- NOTE | 2016-09-03 13:03 | Pharmacy Consult-Antibiotics ---
Pharmacy Consult-Vancomycin - Laboratory Information WBC 8.4 T/MM3 (4.5-11.0) D 09/02/16 04:38 BUN 12.0 MG/DL (7-17) 09/02/16 04:38 Creatinine 1.0 MG/DL (0.7-1.2) 09/02/16 04:38 Vancomycin Trough 27.79 UG/ML (15-20) H* 09/03/16 04:27 - Consult Information Vancomycin protocol: day 3 60 y.o. Female on Vancomcyin for LLE erythema with drainage. Goal vancomcyin trough range= 15-20 mcg/ml Trough was high at 27.8 mcg/ml. SCr remains stable at 1.0 mg/dL, Pt weight: 123 KG Will adjust dose to Vancomycin 2,000 mg IV q24H and will recheck trough with morning labs prior administration of next Vancomycin dose. Pharmacy will monitor and adjust as needed. Thank you for the protocol, Adela Jackman RPH
--- NOTE | 2016-09-03 16:47 | Progress Note ---
Progress Note: Krysta thinks her leg is better. Her nurse just changed the dressing and the drainage has slowed down. She continues to be afebrile x 3 days. She is tolerating abx. Exam focused to right leg Erythema has resolved Swelling improving Yellow-tinted serous drainage from the wound, decreased in volume Area is not as firm as yesterday distal Pulse intact Color is pink Plan Cellulitis -Continue Vancomycin (day #3) and Rocephin (day #4). Seeing improvement -continue antihistamine Anemia -mild postop and likely combined with anemia of CKD stage III
[2016-09-03] MEDS: POLYETHYL GLYCOL 3350 17gm PACKET PO SCH (22:42)
[2016-09-04] MEDS: HYDROCODONE/APAP 5mg/325mg TABLET PO PRN ×4 (03:53→22:20)
[2016-09-04] MEDS: FUROSEMIDE 20 MG TABLET PO SCH ×3 (05:25→14:54)
[2016-09-04] MEDS: OMEPRAZOLE 20 MG CAPSULE PO SCH ×2 (05:26→06:15)
[2016-09-04] MEDS ORDERED: Pharmacy Consult for Fall Risk XX PRN (10:07)
[2016-09-04] MEDS: ASPIRIN 81 MG CHEWABLE TABLET PO SCH (10:53)
[2016-09-04] MEDS: FERROUS SULFATE 324 MG TABLET PO SCH ×2 (10:54→17:24)
[2016-09-04] MEDS: ENOXAPARIN 40 MG/0.4 ML INJECTION SQ SCH (10:54)
[2016-09-04] MEDS: OXYBUTYNIN XL 5 MG TABLET PO SCH (10:54)
[2016-09-04] MEDS: FLUoxetine 20 MG CAPSULE PO SCH (10:54)
[2016-09-04] MEDS: ASCORBIC ACID 500 MG TABLET PO SCH (10:55)
[2016-09-04] MEDS: CEFTRIAXONE 1 G in NS 100 ML IV SCH (10:55)
--- NOTE | 2016-09-04 11:36 | Pharmacy Consult-Antibiotics ---
Pharmacy Consult-Vancomycin - Laboratory Information WBC 5.9 T/MM3 (4.5-11.0) 09/04/16 04:46 BUN 11.0 MG/DL (7-17) 09/04/16 04:46 Creatinine 0.9 MG/DL (0.7-1.2) 09/04/16 04:46 Vancomycin Trough 21.86 UG/ML (15-20) H* 09/04/16 04:46 - Consult Information VANCOMYCIN CONSULT: Vancomycin Trough = 21.86 mcg/ml. Today's SCr = 0.9 mg/dl. Will give Vancomycin 2,000 mg IV q24hrs. Will continue to monitor and make adjustments accordingly. Thank you.
--- NOTE | 2016-09-04 13:32 | Progress Note ---
Subjective: Krysta was seen while working with therapy. She feels like her leg is better. The swelling was much better when she woke up, but now that it's been in the dependent position for a while, it has become more swollen. She denies any pain to her leg or any of the surgical sites. No fever/chills. She denies shortness of breath or chest pain. The dressing was just changed prior to my visit, and nurses report that the amount of drainage is decreasing. She denies any further allergic rxn symptoms to abx, but has noticed that her tongue feels very dry and her throat feels different. Objective Vital signs: Temp Pulse Resp BP Pulse Ox 98.2 F 86 18 140/72 H 92 09/04/16 08:00 09/04/16 08:00 09/04/16 08:00 09/04/16 08:00 09/04/16 08:00 Body Mass Index: 48.4 - Constitutional Present: no acute distress, well nourished, obese - Routine HEENT Exam Head: Present: normocephalic ENT: Present: mucous membranes dry Comments: thrush noted on tongue pharynx erythema - Routine Respiratory Exam Present: CTA bilaterally - Routine Cardiovascular Exam Present: S1, S2 - Routine Abdominal Exam Present: soft, non distended, non tender - Routine Extremities Exam Present: edema, pulses intact, normal capillary refill - Routine Musculoskeletal Exam Musculoskeletal: moving extremities well - Routine Skin Exam Present: intact, dry, warm - Routine Neurological Exam Present: alert, oriented X3 - Routine Psychiatric Exam Present: normal affect, normal thought process Results - Labs CBC & Chem 7: 09/04/16 04:46 09/04/16 04:46 Assessment and Plan (1) Cellulitis Problem details: LLE Rocephin started / Vanco started 09/01 Current visit: Yes Status: Acute (2) S/P CABG x 3 Current visit: Yes Status: Chronic (3) Myopathy Current visit: Yes Status: Acute (4) Anemia Problem details: suspect surgical blood loss Current visit: Yes Status: Acute (5) CKD (chronic kidney disease) stage 3, GFR 30-59 ml/min Current visit: Yes Status: Chronic Assessment and Plan: LLE cellulitis -continues to improve -Continue Vancomycin (day #4) and Rocephin (day #5) -no fever or leukocytosis Normocytic anemia, likely surgical blood loss -hgb declined to 8.5 -asymptomatic -continue iron thrush -start Nystatin Sepsis Assessment - Evaluation Sepsis screening result: No Definite Risk - Focused Exam Vital Signs Temp Pulse Resp BP Pulse Ox 09/04/16 08:00 98.2 F 86 18 140/72 H 92 Respiratory exam: Present: CTA bilaterally Cardiovascular exam: Present: RRR, S1, S2 Capillary refill: < 2-3 Seconds Hospital Course Summary Disclaimer: The visit summary below is not to be considered part of the above Progress Note. Hospital Course: 08/21 Agree with admission to IRU for ongoing strengthening. Monitor six lower extremity post-op incisions. Alexis may be removed on August 29 as long as there is no concerns. Steri-strips to be placed at that time. Place Joseph wrap to left lower extremity to aid with swelling. Continue with scheduled Lasix 20 milligrams twice a day. Continue with oral potassium supplementation 10 milliequivalents twice a day. Will periodically monitor electrolytes. Lovenox SQ daily for DVT prophylaxis. Will only need ASA 81 mg at time of discharge. Continue to monitor bowel motivation as patient has had some mild diarrhea intermittently. Will decrease Colace to as needed. Prozac daily for depression. Encourage work with PT/OT for ongoing strengthening. The hospitalist services will continue to follow patient medically manage her existing comorbidities during her stay on the IRU unit At time of discharge medical care will return to primary care provider, Dr. Naina Luciano from [place], [place]. 08/27/16 Continue with current plan of care. Encourage work with PT and OT for ongoing strengthening. Change Lasix time to 6 a.m. and 2 p.m. to avoid increased urination at night. Given findings of vaginal prolapse. Discussed that she will need follow-up with gynecology. Did discuss using estrogen cream topically. At this point she would like to try controlling urination better with the Ditropan. Discussed and taught regarding Keagle exercises to strengthen pelvic muscles. Lovenox subcutaneous daily for DVT prophylaxis. Will only need aspirin 81 milligrams at time of discharge. Will reevaluate patient tomorrow. May be able to remove lower extremity alexis. 08/28 Overall doing well. Continue with Ditropan to help with urination. Again, can consider an estrogen type cream for vaginal prolapse. At this point, patient would like to hold off on starting this. Order placed for nursing staff to remove all alexis to the lower extremities in place Steri-Strips over incisions. Continue with [place] for pain control. Encourage work with PT and OT for ongoing strengthening 08/31/16 Venous Doppler of the left lower extremity was negative for acute DVT. She was started on oral Bactrim overnight. Given continued fever. Will also add IV Rocephin 1 gram daily. Due to the increased pain in the left lower extremity. Physical therapy is on hold today. Continue with Ditropan to help with urination and discussed need for follow up with manager demand following discharge. Did discuss use of estrogen vaginal cream as another option for prolapse. Given acute leukocytosis. Will recheck CBC and BMP tomorrow morning 09/01/16 10:36 ncreasing leukocytosis, redness, drainage to LLE -discussed with Dr. Garrett - He will plan on contacting cardiothoracic surgeon -will change Bactrim to Vancomycin (per pharmacy protocol). -Obtain blood cultures. -Continue Rocephin day #2 Check CXR d/t cough VSS - afebrile since evening of 08/30/16 LE Cellulitis (Dr. Garrett) -Concern for hospital acquired MRSA, will switch to Vanc, can keep rocephin for gram neg coverage, if not improving can add anaerobic coverage with flagyl -Discussed case with older as he was covering for [facility], he agreed with plan and noted that they would be happy to transfer pt back to [place] for tx if infection got worse and needed further care 09/02/16 09:06 LLE Cellulitis -Continue Vancomycin (day #2) and Rocephin (day #3). Consider adding Flagyl for anaerobic coverage. -there is some concern about rxn to vancomycin. Pt reports a thick tongue and funny feeling in her throat - resolved with Benadryl. Typical response per patient - requests Claritin, which is what she takes at home. -erythema has improved compared to yesterday but there is more drainage - serous in nature and no purulent material to culture -leukocytosis has resolved and she has been afebrile x48 hours -venous doppler on 08/31/16 was negative for DVT -if worsens, could obtain CT of her leg with contrast or transfer back to [place] (as per Dr. Garrett's note from yesterday) 09/04/16 13:38 LLE cellulitis -continues to improve -Continue Vancomycin (day #4) and Rocephin (day #5) -no fever or leukocytosis Normocytic anemia, likely surgical blood loss -hgb declined to 8.5 -asymptomatic -continue iron thrush -start Nystatin
[2016-09-04] MEDS: NYSTATIN 500,000 units/5 ml ORAL LIQUID PO SCH ×2 (17:24→20:20)
--- NOTE | 2016-09-04 21:55 | IRU Progress Note ---
- Subjective/Serverity of Illness Patient has decreased pain and leg, is up working with physical therapy. Exam Vital Signs: Temp Pulse Resp BP Pulse Ox 98.2 F 85 16 131/74 95 09/04/16 20:32 09/04/16 20:32 09/04/16 20:32 09/04/16 20:32 09/04/16 20:32 Telemetry Rhythm: Sinus Rhythm Height: 1.6 m Weight: 122.9 kg Body Mass Index: 48.4 - Constitutional Present: no acute distress, well nourished, obese - Routine HEENT Exam Head: Present: normocephalic - Routine Respiratory Exam Present: CTA bilaterally. Absent: accessory muscle use - Routine Cardiovascular Exam Present: RRR, no murmur Results - Labs CBC & Chem 7: 09/04/16 04:46 09/04/16 04:46 Sepsis Assessment - Evaluation Sepsis screening result: No Definite Risk - Focused Exam Vital Signs Temp Pulse Resp BP Pulse Ox 09/04/16 20:32 98.2 F 85 16 131/74 95 09/04/16 16:00 98.0 F 83 24 134/67 94 Respiratory exam: Present: CTA bilaterally Cardiovascular exam: Present: RRR, S1, S2 Capillary refill: < 2-3 Seconds IRU A/P (1) Myopathy Current visit: Yes Status: Acute Patient is working with physical and therapy and occupational therapy. Continues to show improvement from scores. (2) S/P CABG x 3 Current visit: Yes Status: Chronic DVT Prophylaxis: Lovenox - Course Hospital Course: Juan José Pearson MD:
[2016-09-04] MEDS: POLYETHYL GLYCOL 3350 17gm PACKET PO SCH (23:16)
[2016-09-05] MEDS: OMEPRAZOLE 20 MG CAPSULE PO SCH (06:30)
[2016-09-05] MEDS: FUROSEMIDE 20 MG TABLET PO SCH ×2 (06:30→13:07)
[2016-09-05] MEDS: HYDROCODONE/APAP 5mg/325mg TABLET PO PRN ×3 (06:38→23:45)
[2016-09-05] MEDS: FERROUS SULFATE 324 MG TABLET PO SCH ×2 (09:13→17:49)
[2016-09-05] MEDS: OXYBUTYNIN XL 5 MG TABLET PO SCH (09:14)
[2016-09-05] MEDS: ASCORBIC ACID 500 MG TABLET PO SCH (09:15)
[2016-09-05] MEDS: NYSTATIN 500,000 units/5 ml ORAL LIQUID PO SCH ×4 (09:15→22:19)
[2016-09-05] MEDS: FLUoxetine 20 MG CAPSULE PO SCH (09:16)
[2016-09-05] MEDS: ASPIRIN 81 MG CHEWABLE TABLET PO SCH (09:17)
[2016-09-05] MEDS: ENOXAPARIN 40 MG/0.4 ML INJECTION SQ SCH (10:19)
[2016-09-05] MEDS: CEFTRIAXONE 1 G in NS 100 ML IV SCH (10:20)
--- NOTE | 2016-09-05 11:08 | Progress Note ---
Addendum entered and electronically signed by Ca Toribio APRN 09/05/16 11:30 : Pt. c/o difficulty ambulating as she is unable to wear AFO brace. Will try [place] for support and stability until surgical wound is healed. Original Note: <Ca Toribio - Last Filed: 09/05/16 11:04> Subjective: Krysta is seen today in follow up. She is up in [place] with wheelchair. She reports doing well. She is having difficulty with ambulation given left leg cellulitis. She normally wears and AFO brace, and is unable to do so given infected incision. She feels unstable, and is not walking much. She is participating in therapy as much as she can. Continues to struggle with urinary frequency, worse at night, and some incontinence. She is interested in pursuing SALT OPERATOR evaluation in the future. Did have a catheter in during post-op period. Did have some temp relief with Ditropan, but does not feel it is helping as much now. She is otherwise feeling well. Reports that she is having adequate BM. No difficulty with depression. Objective Vital signs: Temp Pulse Resp BP Pulse Ox 98.7 F 92 16 143/86 H 91 09/05/16 08:00 09/05/16 08:00 09/05/16 08:00 09/05/16 08:00 09/05/16 08:00 Body Mass Index: 48.4 - Constitutional Present: no acute distress, well nourished, obese, cooperative - Routine HEENT Exam Head: Present: normocephalic, atraumatic Eye: Present: EOMI, PERRL ENT: Present: mucous membranes moist - Routine Respiratory Exam Present: CTA bilaterally. Absent: accessory muscle use, rales, wheezes, crackles - Routine Cardiovascular Exam Present: RRR, S1, S2. Absent: no murmur - Routine Abdominal Exam Present: soft, non distended, non tender - Routine Extremities Exam Present: edema Comments: Left lower leg incision- mild redness surrounding incision. Moderate yellow drainage on the dressing. Bilateral LE edema noted. - Routine Musculoskeletal Exam Musculoskeletal: limited range of motion - Routine Skin Exam Present: dry, warm - Routine Neurological Exam Present: alert, moving all extremities Reports chronic left foot drop - Routine Psychiatric Exam Present: normal affect, normal thought process, cooperative Results - Labs CBC & Chem 7: 09/05/16 04:24 09/05/16 04:24 Assessment and Plan (1) S/P CABG x 3 Current visit: Yes Status: Chronic (2) Myopathy Current visit: Yes Status: Acute (3) Cellulitis Problem details: LLE Rocephin started 08/31 Vanco started 09/01 Current visit: Yes Status: Acute (4) Anemia Problem details: suspect surgical blood loss Current visit: Yes Status: Acute (5) CKD (chronic kidney disease) stage 3, GFR 30-59 ml/min Current visit: Yes Status: Chronic (6) Urinary incontinence Current visit: Yes Status: Acute (7) Infected incision Current visit: Yes Status: Acute DVT Prophylaxis: SCD's, Lovenox GI Prophylaxis: other (N/A) Assessment and Plan: 09/05/16 *S/P CABG- Is overall doing very well. Continue Lasix BID with KCL replacement. She still appears fluid overloaded- edema, right jugular venous bounding. Will increase Lasix AM dosing, continue lower afternoon dose. Continue metoprolol. *Infected leg incision- Vanco #5, Ceftriaxone #6. May want to change to PO Clindamycin in the next day or so if continues to improve. Wound care per routine. *Urinary incontinence- Assess UA, bladder scan given recent [place] cath. Continue ditropan. Consider SALT OPERATOR consult- outpt? *Depression- Doing well on Prozac. Instructed to notify us if any difficulty. *Anemia- Likely ABLA + reactive due to infection. Continue PO Iron. Recheck CBC in AM. Sepsis Assessment - Evaluation Sepsis screening result: No Definite Risk - Focused Exam Vital Signs Temp Pulse Resp BP Pulse Ox 09/05/16 08:00 98.7 F 92 16 143/86 H 91 Respiratory exam: Present: CTA bilaterally Cardiovascular exam: Present: RRR, S1, S2 Capillary refill: < 2-3 Seconds Hospital Course Summary Disclaimer: The visit summary below is not to be considered part of the above Progress Note. Hospital Course: 08/21 Agree with admission to IRU for ongoing strengthening. Monitor six lower extremity post-op incisions. Alexis may be removed on August 29 as long as there is no concerns. Steri-strips to be placed at that time. Place Joseph wrap to left lower extremity to aid with swelling. Continue with scheduled Lasix 20 milligrams twice a day. Continue with oral potassium supplementation 10 milliequivalents twice a day. Will periodically monitor electrolytes. Lovenox SQ daily for DVT prophylaxis. Will only need ASA 81 mg at time of discharge. Continue to monitor bowel motivation as patient has had some mild diarrhea intermittently. Will decrease Colace to as needed. Prozac daily for depression. Encourage work with PT/OT for ongoing strengthening. The hospitalist services will continue to follow patient medically manage her existing comorbidities during her stay on the IRU unit At time of discharge medical care will return to primary care provider, Dr. Naina Luciano from [place], [place]. 08/27/16 Continue with current plan of care. Encourage work with PT and OT for ongoing strengthening. Change Lasix time to 6 a.m. and 2 p.m. to avoid increased urination at night. Given findings of vaginal prolapse. Discussed that she will need follow-up with gynecology. Did discuss using estrogen cream topically. At this point she would like to try controlling urination better with the Ditropan. Discussed and taught regarding [place] exercises to strengthen pelvic muscles. Lovenox subcutaneous daily for DVT prophylaxis. Will only need aspirin 81 milligrams at time of discharge. Will reevaluate patient tomorrow. May be able to remove lower extremity alexis. 08/28 Overall doing well. Continue with Ditropan to help with urination. Again, can consider an estrogen type cream for vaginal prolapse. At this point, patient would like to hold off on starting this. Order placed for nursing staff to remove all alexis to the lower extremities in place Steri-Strips over incisions. Continue with [place] for pain control. Encourage work with PT and OT for ongoing strengthening 08/31/16 Venous Doppler of the left lower extremity was negative for acute DVT. She was started on oral Bactrim overnight. Given continued fever. Will also add IV Rocephin 1 gram daily. Due to the increased pain in the left lower extremity. Physical therapy is on hold today. Continue with Ditropan to help with urination and discussed need for follow up with loader operator following discharge. Did discuss use of estrogen vaginal cream as another option for prolapse. Given acute leukocytosis. Will recheck CBC and BMP tomorrow morning 09/01/16 10:36 ncreasing leukocytosis, redness, drainage to LLE -discussed with Dr. Garrett - He will plan on contacting cardiothoracic surgeon -will change Bactrim to Vancomycin (per pharmacy protocol). -Obtain blood cultures. -Continue Rocephin day #2 Check CXR d/t cough VSS - afebrile since evening of 08/30/16 LE Cellulitis (Dr. Garrett) -Concern for hospital acquired MRSA, will switch to Vanc, can keep rocephin for gram neg coverage, if not improving can add anaerobic coverage with flagyl -Discussed case with older as he was covering for [employer], he agreed with plan and noted that they would be happy to transfer pt back to [place] for tx if infection got worse and needed further care 09/02/16 09:06 LLE Cellulitis -Continue Vancomycin (day #2) and Rocephin (day #3). Consider adding Flagyl for anaerobic coverage. -there is some concern about rxn to vancomycin. Pt reports a thick tongue and funny feeling in her throat - resolved with Benadryl. Typical response per patient - requests Claritin, which is what she takes at home. -erythema has improved compared to yesterday but there is more drainage - serous in nature and no purulent material to culture -leukocytosis has resolved and she has been afebrile x48 hours -venous doppler on 08/31/16 was negative for DVT -if worsens, could obtain CT of her leg with contrast or transfer back to [place] (as per Dr. Garrett's note from yesterday) 09/04/16 13:38 LLE cellulitis -continues to improve -Continue Vancomycin (day #4) and Rocephin (day #5) -no fever or leukocytosis Normocytic anemia, likely surgical blood loss -hgb declined to 8.5 -asymptomatic -continue iron thrush -start Nystatin 09/05/16 11:28 09/05/16 *S/P CABG- Is overall doing very well. Continue Lasix BID with KCL replacement. She still appears fluid overloaded- edema, right jugular venous bounding. Will increase Lasix AM dosing, continue lower afternoon dose. Continue metoprolol. *Infected leg incision- Vanco #5, Ceftriaxone #6. May want to change to PO Clindamycin in the next day or so if continues to improve. Wound care per routine. *Urinary incontinence- Assess UA, bladder scan given recent [place] cath. Continue ditropan. Consider SALT OPERATOR consult- outpt? *Depression- Doing well on Prozac. Instructed to notify us if any difficulty. *Anemia- Likely ABLA + reactive due to infection. Continue PO Iron. Recheck CBC in AM. <Kenzie Davidson - Last Filed: 09/05/16 22:05> Objective Vital signs: Temp Pulse Resp BP Pulse Ox 98.0 F 88 16 153/84 H 98 09/05/16 16:00 09/05/16 16:00 09/05/16 16:00 09/05/16 16:00 09/05/16 16:00 Results - Labs CBC & Chem 7: 09/05/16 04:24 09/05/16 04:24 Assessment and Plan (1) S/P CABG x 3 Current visit: Yes Status: Chronic (2) Myopathy Current visit: Yes Status: Acute (3) Cellulitis Problem details: LLE Rocephin started 08/31 Vanco started 09/01 Current visit: Yes Status: Acute (4) Urinary incontinence Current visit: Yes Status: Acute (5) Anemia Problem details: suspect surgical blood loss Current visit: Yes Status: Acute (6) CKD (chronic kidney disease) stage 3, GFR 30-59 ml/min Current visit: Yes Status: Chronic (7) Infected incision Current visit: Yes Status: Acute Assessment and Plan: I have independently evaluated and examined this patient. I reviewed the chart, the patient's history, and the COMMUNICATIONS SUPERINTENDENT's documented findings as above. We discussed and formulated the assessment and plan as above with additions as below: Generally doing well. Denies chest pain or dyspnea. Reports some residual redness left lower extremity. Seen in the dining room, positioning/dressing did not permit direct visualization of cellulitis. Respirations nonlabored, breath sounds clear. Regular rhythm, S1-S2, sternal incisions well-healed Bilateral lower extremity edema present, vein graft site left leg dressed. Hemoglobin stable for several days-recheck CBC in a couple days, do not believe daily labs needed at this point. Blood cultures 4 negative, consistently afebrile. Will attempt to directly visualize left lower extremity in the next 1-2 days with intent of converting to oral antibiotics. Sepsis Assessment - Focused Exam Vital Signs Temp Pulse Resp BP Pulse Ox 09/05/16 16:00 98.0 F 88 16 153/84 H 98 Hospital Course Summary Disclaimer: The visit summary below is not to be considered part of the above Progress Note.
[2016-09-05] MEDS: POLYETHYL GLYCOL 3350 17gm PACKET PO SCH (22:20)
[2016-09-06] MEDS: GUAIFENESIN LA 600 MG TABLET PO PRN ×2 (02:28→17:45)
[2016-09-06] MEDS: CEFTRIAXONE 1 G in NS 100 ML IV SCH ×2 (03:30→09:06)
[2016-09-06] MEDS: SALINE FLUSH 10ml SYRINGE IVF PRN ×2 (03:40→12:30)
[2016-09-06] MEDS: OMEPRAZOLE 20 MG CAPSULE PO SCH (06:43)
[2016-09-06] MEDS: HYDROCODONE/APAP 5mg/325mg TABLET PO PRN ×2 (09:11→22:06)
[2016-09-06] MEDS: FERROUS SULFATE 324 MG TABLET PO SCH ×2 (09:12→17:44)
[2016-09-06] MEDS: FLUoxetine 20 MG CAPSULE PO SCH (09:12)
[2016-09-06] MEDS: ASCORBIC ACID 500 MG TABLET PO SCH (09:12)
[2016-09-06] MEDS: OXYBUTYNIN XL 5 MG TABLET PO SCH (09:12)
[2016-09-06] MEDS: ENOXAPARIN 40 MG/0.4 ML INJECTION SQ SCH (09:13)
[2016-09-06] MEDS: FUROSEMIDE 40 MG TABLET PO SCH (09:13)
[2016-09-06] MEDS: NYSTATIN 500,000 units/5 ml ORAL LIQUID PO SCH ×4 (09:14→20:59)
[2016-09-06] MEDS: ASPIRIN 81 MG CHEWABLE TABLET PO SCH (09:16)
[2016-09-06] MEDS ORDERED: METHYLPREDNISOLONE SOD SUCC 125mg/2ml INJECTION IVP ONE (12:17)
--- NOTE | 2016-09-06 12:21 | Progress Note ---
<Krysta Farrar D - Last Filed: 09/06/16 12:12> Subjective: Krysta has noticed increased redness and swelling to her leg. It hurt a bit more than usual when she was bearing weight on it too. She denies fevers/chills/ sweating or myalgias. She denies any chest pain or shortness of breath. No abdominal pain or nausea and her appetite has been good. She denies constipation. Her mouth feels much better since staring nystatin. Her was present when I checked on her later again and he was updated on plan of care. Objective Vital signs: Temp Pulse Resp BP Pulse Ox 98.7 F 92 16 151/83 H 94 09/06/16 08:00 09/06/16 08:00 09/06/16 08:00 09/06/16 08:00 09/06/16 08:00 Body Mass Index: 48.4 - Constitutional Present: no acute distress, well nourished, obese, cooperative - Routine HEENT Exam ENT: Present: mucous membranes moist, oropharynx clear (thrush resolved) - Routine Respiratory Exam Present: CTA bilaterally - Routine Cardiovascular Exam Present: RRR, S1, S2 - Routine Abdominal Exam Present: soft, normoactive bowel sounds, non distended, non tender - Routine Extremities Exam Present: edema, pulses intact - Routine Musculoskeletal Exam Musculoskeletal: normal strength - Routine Skin Exam Present: intact, erythema (increasing erythema and swelling to LLE; ongoing serous drainage), warm - Routine Neurological Exam Present: alert, oriented X3 - Routine Psychiatric Exam Present: normal affect, normal thought process Results - Labs CBC & Chem 7: 09/05/16 04:24 09/05/16 04:24 Assessment and Plan (1) S/P CABG x 3 Current visit: Yes Status: Chronic (2) Myopathy Current visit: Yes Status: Acute (3) Cellulitis Problem details: LLE Rocephin started 08/31 Vanco started 09/01 Current visit: Yes Status: Acute (4) Urinary incontinence Current visit: Yes Status: Acute (5) Anemia Problem details: suspect surgical blood loss Current visit: Yes Status: Acute (6) CKD (chronic kidney disease) stage 3, GFR 30-59 ml/min Current visit: Yes Status: Chronic (7) Infected incision Current visit: Yes Status: Acute Assessment and Plan: Cellulitis LLE -increasing swelling and erythema, remains afebrile -CT with contrast ordered - discussed allergy - she recently had a CT with contrast and did well with prednisone and Benadryl -discussed with CT - will give Solu-Medrol and Benadryl now and will obtain scan this afternoon -if positive for abscess, will need to discuss with Dr. Proctor -continue vanco (day #6) and rocephin (day #7) - may need to expand abx for anaerobic coverage -repeat CBC in am -discussed with Dr. Davidson and nursing staff and family Fluid overload -Lasix increased on 09/05 -tolerating well -check BMP tomorrow am. Sepsis Assessment - Evaluation Sepsis screening result: No Definite Risk - Focused Exam Vital Signs Temp Pulse Resp BP Pulse Ox 09/06/16 08:00 98.7 F 92 16 151/83 H 94 Respiratory exam: Present: CTA bilaterally Cardiovascular exam: Present: RRR, S1, S2 Capillary refill: < 2-3 Seconds Hospital Course Summary Disclaimer: The visit summary below is not to be considered part of the above Progress Note. Hospital Course: 08/21 Agree with admission to IRU for ongoing strengthening. Monitor six lower extremity post-op incisions. Alexis may be removed on August 29 as long as there is no concerns. Steri-strips to be placed at that time. Place Joseph wrap to left lower extremity to aid with swelling. Continue with scheduled Lasix 20 milligrams twice a day. Continue with oral potassium supplementation 10 milliequivalents twice a day. Will periodically monitor electrolytes. Lovenox SQ daily for DVT prophylaxis. Will only need ASA 81 mg at time of discharge. Continue to monitor bowel motivation as patient has had some mild diarrhea intermittently. Will decrease Colace to as needed. Prozac daily for depression. Encourage work with PT/OT for ongoing strengthening. The hospitalist services will continue to follow patient medically manage her existing comorbidities during her stay on the IRU unit At time of discharge medical care will return to primary care provider, Dr. Naina Luciano from [place], [place]. 08/27/16 Continue with current plan of care. Encourage work with PT and OT for ongoing strengthening. Change Lasix time to 6 a.m. and 2 p.m. to avoid increased urination at night. Given findings of vaginal prolapse. Discussed that she will need follow-up with gynecology. Did discuss using estrogen cream topically. At this point she would like to try controlling urination better with the Ditropan. Discussed and taught regarding [place] exercises to strengthen pelvic muscles. Lovenox subcutaneous daily for DVT prophylaxis. Will only need aspirin 81 milligrams at time of discharge. Will reevaluate patient tomorrow. May be able to remove lower extremity alexis. 08/28 Overall doing well. Continue with Ditropan to help with urination. Again, can consider an estrogen type cream for vaginal prolapse. At this point, patient would like to hold off on starting this. Order placed for nursing staff to remove all alexis to the lower extremities in place Steri-Strips over incisions. Continue with [place] for pain control. Encourage work with PT and OT for ongoing strengthening 08/31/16 Venous Doppler of the left lower extremity was negative for acute DVT. She was started on oral Bactrim overnight. Given continued fever. Will also add IV Rocephin 1 gram daily. Due to the increased pain in the left lower extremity. Physical therapy is on hold today. Continue with Ditropan to help with urination and discussed need for follow up with facsimile machine operator following discharge. Did discuss use of estrogen vaginal cream as another option for prolapse. Given acute leukocytosis. Will recheck CBC and BMP tomorrow morning 09/01/16 10:36 ncreasing leukocytosis, redness, drainage to LLE -discussed with Dr. Garrett - He will plan on contacting cardiothoracic surgeon -will change Bactrim to Vancomycin (per pharmacy protocol). -Obtain blood cultures. -Continue Rocephin day #2 Check CXR d/t cough VSS - afebrile since evening of 08/30/16 LE Cellulitis (Dr. Garrett) -Concern for hospital acquired MRSA, will switch to Vanc, can keep rocephin for gram neg coverage, if not improving can add anaerobic coverage with flagyl -Discussed case with older as he was covering for [facility] Card[facility], he agreed with plan and noted that they would be happy to transfer pt [facility] if infection got worse and needed further care 09/02/16 09:06 LLE Cellulitis -Continue Vancomycin (day #2) and Rocephin (day #3). Consider adding Flagyl for anaerobic coverage. -there is some concern about rxn to vancomycin. Pt reports a thick tongue and funny feeling in her throat - resolved with Benadryl. Typical response per patient - requests Claritin, which is what she takes at home. -erythema has improved compared to yesterday but there is more drainage - serous in nature and no purulent material to culture -leukocytosis has resolved and she has been afebrile x48 hours -venous doppler on 08/31/16 was negative for DVT -if worsens, could obtain CT of her leg with contrast or transfer back to [place] (as per Dr. Garrett's note from yesterday) 09/04/16 13:38 LLE cellulitis -continues to improve -Continue Vancomycin (day #4) and Rocephin (day #5) -no fever or leukocytosis Normocytic anemia, likely surgical blood loss -hgb declined to 8.5 -asymptomatic -continue iron thrush -start Nystatin 09/05/16 11:28 09/05/16 *S/P CABG- Is overall doing very well. Continue Lasix BID with KCL replacement. She still appears fluid overloaded- edema, right jugular venous bounding. Will increase Lasix AM dosing, continue lower afternoon dose. Continue metoprolol. *Infected leg incision- Vanco #5, Ceftriaxone #6. May want to change to PO Clindamycin in the next day or so if continues to improve. Wound care per routine. *Urinary incontinence- Assess UA, bladder scan given recent [place] cath. Continue ditropan. Consider BUTADIENE CONVERTER OPERATOR consult- outpt? *Depression- Doing well on Prozac. Instructed to notify us if any difficulty. *Anemia- Likely ABLA + reactive due to infection. Continue PO Iron. Recheck CBC in AM. 09/06/16 12:29 Cellulitis LLE -increasing swelling and erythema, remains afebrile -CT with contrast ordered - discussed allergy - she recently had a CT with contrast and did well with prednisone and Benadryl -discussed with CT - will give Solu-Medrol and Benadryl now and will obtain scan this afternoon -if positive for abscess, will need to discuss with Dr. Proctor -continue vanco (day #6) and rocephin (day #7) - may need to expand abx for anaerobic coverage -repeat CBC in am -discussed with Dr. Davidson and nursing staff and family Fluid overload -Lasix increased on 09/05 -tolerating well -check BMP tomorrow am. <Kenzie Davidson - Last Filed: 09/06/16 20:31> Subjective: I have independently evaluated and examined this patient. I reviewed the chart, the patient's history, and the LAND SURVEYING PARTY CHIEF's documented findings as above. We discussed and formulated the assessment and plan as above with additions as below: Patient seen early evening resting in her room with her legs elevated. She reported that erythema improved progressively 3 yesterday but this morning she thought it was a little bit worse. Otherwise she feels well and has had no fever. Did well with CT scan, tolerated contrast well. NAD, patient alert. Respirations nonlabored. Left lower extremity examined-+2 edema (improved from last evaluation), minimal erythema present-patient indicates improved from this morning. Small amount of serous drainage from the lower incision site. CT of left lower extremity reviewed by myself demonstrating soft tissue swelling greatest along the medial calf without abscess formation. Patient is been afebrile since 08/30, leukocytosis resolved promptly with antibiotics. Suspect erythema noted earlier related to leg being dependent this morning when patient showered and had breakfast. Encouraged to keep leg elevated as much as possible. Overall appears to be doing well and I believe we can convert to oral antibiotics prior to discharge as originally discussed. In addition to labs previously ordered-check CRP in a.m. Days 7 Rocephin-discontinue. Continue vancomycin with plans to convert to clindamycin tomorrow. 37/61 Objective Vital signs: Temp Pulse Resp BP Pulse Ox 98.6 F 85 16 165/80 H 92 09/06/16 16:00 09/06/16 16:00 09/06/16 16:00 09/06/16 16:00 09/06/16 16:00 Results - Labs CBC & Chem 7: 09/05/16 04:24 09/05/16 04:24 Assessment and Plan (1) S/P CABG x 3 Current visit: Yes Status: Chronic (2) Myopathy Current visit: Yes Status: Acute (3) Cellulitis Problem details: LLE Rocephin started 08/31 Vanco started 09/01 Current visit: Yes Status: Acute (4) Urinary incontinence Current visit: Yes Status: Acute (5) Anemia Problem details: suspect surgical blood loss Current visit: Yes Status: Acute (6) CKD (chronic kidney disease) stage 3, GFR 30-59 ml/min Current visit: Yes Status: Chronic (7) Infected incision Current visit: Yes Status: Acute Sepsis Assessment - Focused Exam Vital Signs Temp Pulse Resp BP Pulse Ox 09/06/16 16:00 98.6 F 85 16 165/80 H 92 Hospital Course Summary Disclaimer: The visit summary below is not to be considered part of the above Progress Note.
[2016-09-06] MEDS ORDERED: IOHEXOL 300mg/ml 100ml INJECTION ONE (13:54)
[2016-09-06] MEDS ORDERED: NS 100 ML ONE (13:55)
[2016-09-06] MEDS ORDERED: SALINE FLUSH 10ml SYRINGE ONE (13:55)
[2016-09-06] MEDS: FUROSEMIDE 20 MG TABLET PO SCH (14:37)
[2016-09-06] MEDS: POLYETHYL GLYCOL 3350 17gm PACKET PO SCH (23:59)
[2016-09-07] MEDS: HYDROCODONE/APAP 5mg/325mg TABLET PO PRN ×3 (03:53→22:08)
[2016-09-07] MEDS: GUAIFENESIN LA 600 MG TABLET PO PRN ×2 (06:33→22:08)
[2016-09-07] MEDS: OMEPRAZOLE 20 MG CAPSULE PO SCH (06:33)
[2016-09-07] MEDS: ENOXAPARIN 40 MG/0.4 ML INJECTION SQ SCH (08:23)
[2016-09-07] MEDS: ASCORBIC ACID 500 MG TABLET PO SCH (08:24)
[2016-09-07] MEDS: FUROSEMIDE 40 MG TABLET PO SCH (08:24)
[2016-09-07] MEDS: NYSTATIN 500,000 units/5 ml ORAL LIQUID PO SCH ×4 (08:24→22:07)
[2016-09-07] MEDS: FLUoxetine 20 MG CAPSULE PO SCH (08:24)
[2016-09-07] MEDS: OXYBUTYNIN XL 5 MG TABLET PO SCH (08:25)
[2016-09-07] MEDS: FERROUS SULFATE 324 MG TABLET PO SCH ×2 (08:25→17:16)
[2016-09-07] MEDS: ASPIRIN 81 MG CHEWABLE TABLET PO SCH (08:28)
[2016-09-07] MEDS: SALINE FLUSH 10ml SYRINGE IVF PRN ×3 (08:29→22:09)
--- NOTE | 2016-09-07 10:40 | CT Scan Report ---
Indication: cellulitis, postop; r/o abscess Procedure: CT LE LT w con: Encounter: Initial Comparison: None Technique: CT imaging of the left lower extremity was performed from the knee to the ankle after administration of 100 mL Omnipaque 300 intravenous contrast. Axial, coronal, and sagittal reformatted images were performed. Findings: The visualized osseous structures appear intact with no acute fracture identified. Degenerative arthrosis of the knee and ankle. Small knee joint effusion and moderate Bal's cyst. Surgical clips within the medial soft tissues of the lower leg. Diffuse subcutaneous edema, more pronounced medially. Ill-defined non rim-enhancing fluid collection within the anteromedial soft tissues. Impression: 1. Diffuse subcutaneous edema, more pronounced medially consistent with reported history of cellulitis. There is ill-defined nonrim-enhancing fluid within the anteromedial soft tissues most suggestive of postoperative seroma and not discrete drainable abscess. 2. Degenerative arthrosis of the right knee with a small joint effusion and moderate Bal's cyst. Partially ruptured Bal's cyst not excluded. The above report concurs with the preliminary report provided by [facility] at 2:45 PM. .
--- NOTE | 2016-09-07 11:27 | Discharge Summary ---
Discharge Plan - Med Rec/Dispo Referrals/Follow Up: Yves Lee MD [Physician] - [place] Instructions: Cellulitis (GEN), Oral Candidiasis (GEN), Chronic Hypertension (DC), Uterine Prolapse (GEN) Additional Instructions: Discharge plans -Follow up with Dr. Cardona on 09/15/16 at 3:30. -Follow-up with Dr. Lee in 2-4 weeks -Follow-up with Dr. Luciano in 1 week to reassess need to continue Lasix. Prescriptions: New Nystatin Oral Liq. [Mycostatin] 5 ml PO QID #60 ml Oxybutynin Xl [Ditropan Xl] 10 mg PO DAILY #30 Metoprolol Tartrate [Lopressor] 25 mg PO BIDWM Omeprazole [Prilosec] 40 mg PO ACB cap Ferrous Sulfate [Feosol] 324 mg PO BIDWM Ascorbic Acid [Vitamin C] 500 mg PO DAILY PEG 3350 17gm PACKET [Miralax] 17 gm PO HS packet Clindamycin HCl 300 mg PO QID #12 capsule Furosemide [Lasix] 1 tab PO DAILY #10 tab Lactobacillus [Culturelle] 1 cap PO TIDWM #30 capsule FLUoxetine [Prozac] 20 mg PO DAILY cap Aspirin Chewable [ASA] 81 mg PO DAILY Continue Omeprazole 40 mg PO ACB #0 cap Ferrous Sulfate 325 mg PO BIDWM Miralax 17 gm PO HS Aspirin 1 tab PO DAILY #0 tab Docusate Sodium [Colace] 1 cap PO BID #0 cap Polyethylene Glycol 3350 [Miralax] 17 g PO HS #0 bottle Ascorbic Acid 1 tab PO DAILY #0 tab Hydrocodone/Acetaminophen [Lortab 5-325 mg Tablet] 1 - 2 tab PO Q4HPRN PRN # 20 tab PRN Reason: PAIN Fluoxetine HCl [Prozac] 20 mg PO DAILY #0 cap Metoprolol Tartrate [Lopressor] 25 mg PO BID #0 Changed Klor-Con 10 10 meq PO WB #10 Discontinued Ascorbic Acid 500 mg PO DAILY Aspirin Chewable 81 mg PO DAILY Colace 100 mg PO BID diphenhydrAMINE HCl [Benadryl] 1 - 2 cap PO Q6HPRN #0 cap Ferrous Sulfate 1 tab PO BIDWM #0 tab Acetaminophen [Tylenol] 2 tab PO Q4HPRN #0 tab Potassium Chloride [Klor-Con 10] 10 meq PO BID 14 Days Bisacodyl [Dulcolax] 1 supp RECTALLY DAILY PRN #0 PRN Reason: STOOL SOFTENING Sod Phos,M-B/Na Phos,Di-Ba [Fleet Enema] 1 enema RECTALLY PRN #0 enema Ondansetron [Zofran Odt] 4 mg PO Q6HR PRN #0 tab PRN Reason: PRN ORDERS Acetaminophen 650 mg PO Q4H PRN PRN Reason: Pain Acetaminophen 650 mg PO Q4H PRN PRN Reason: Pain Dulcolax 10 mg RECTALLY DAILY PRN PRN Reason: Constipation diphenhydrAMINE HCl 25 - 50 mg PO Q6H PRN PRN Reason: Prn Orders Furosemide 20 mg PO BID Metoprolol Tartrate 25 mg PO BID Fleet Enema 1 enema RECTALLY PRN PRN PRN Reason: Prn Orders Zofran Odt 4 mg PO Q6H PRN PRN Reason: Nausea &/Or Vomiting Furosemide 1 tab PO BID 14 Days - Disposition 01 Discharged Home, Self-Care
--- NOTE | 2016-09-07 11:29 | Progress Note ---
Subjective: Krysta's left lower extremity has improved from yesterday. The erythema has resolved. It is less swollen but continues to have serous drainage. She remains afebrile. The plan is to go home tomorrow with home health. She inquires about a tooth where she is losing her crown, and I encouraged her to contact her dentist for a follow-up appointment. Her thrush has cleared up, but we will continue on the course of nystatin. Overall, she has noticed improvement. She denies any chest pain or shortness of breath, abdominal pain or GI complaints. Objective Vital signs: Temp Pulse Resp BP Pulse Ox 98.4 F 81 18 161/80 H 92 09/07/16 07:25 09/07/16 07:25 09/07/16 07:25 09/07/16 07:25 09/07/16 07:25 Body Mass Index: 48.4 - Constitutional Present: no acute distress, well nourished, obese, cooperative - Routine HEENT Exam ENT: Present: mucous membranes moist, oropharynx clear - Routine Respiratory Exam Present: CTA bilaterally - Routine Cardiovascular Exam Present: RRR, S1, S2 - Routine Abdominal Exam Present: soft, normoactive bowel sounds, non distended - Routine Extremities Exam Present: edema, pulses intact, normal capillary refill - Routine Musculoskeletal Exam Musculoskeletal: no erythera, moving extremities well - Routine Skin Exam Present: dry, warm, rash (left lower extremity erythema has significantly improved and nearly completely resolved. The swelling has decreased. Continues to have clear serous drainage.) Comments: Sternal incisions continue to heal well. - Routine Neurological Exam Present: alert, oriented X3 - Routine Psychiatric Exam Present: normal affect, normal thought process Results - Labs CBC & Chem 7: 09/07/16 04:35 09/07/16 04:35 Assessment and Plan (1) S/P CABG x 3 Current visit: Yes Status: Chronic (2) Myopathy Current visit: Yes Status: Acute (3) Cellulitis Problem details: LLE Rocephin started 08/31 Vanco started 09/01 Current visit: Yes Status: Acute (4) Urinary incontinence Current visit: Yes Status: Acute (5) Anemia Problem details: suspect surgical blood loss Current visit: Yes Status: Acute (6) CKD (chronic kidney disease) stage 3, GFR 30-59 ml/min Current visit: Yes Status: Chronic (7) Infected incision Current visit: Yes Status: Acute Assessment and Plan: Left lower extremity cellulitis -CT with contrast was done yesterday, showing subcutaneous edema, and postoperative seroma, no discrete drainable abscess. -She has completed 1 week of Rocephin and today will be her seventh dose of vancomycin. -Tomorrow will start clindamycin 300 mg QID x3 days to complete a ten-day course of antibiotics -Start taking probiotics (she likes Activia yogurt) -Consult wound nurse for home health dressing recommendations -Elevate leg while at rest -wrap leg with extra bandage while using orthotic Thrush -Nystatin was started on 09/04/16 -We'll provide prescription to go through 16 September, which would be a 2 week course Fluid overload -Lasix dose was increased on 09/05 -Electrolytes remained stable -Will dismiss home with Lasix 40 mg daily, and potassium 20 mEq for 1 week Hypertension -Lasix, as above -Monitor blood pressure at home -Continue metoprolol 25 mg BID -Follow-up with cardiology about increasing her metoprolol dose, if continues to run high at home Dental concern -call dentist and follow up [facility]ATE[facility] Discharge plans -Follow up with Dr. Cardona on 09/15/16 at 3:30. -Follow-up with Dr. Lee in 2-4 weeks -Follow-up with Dr. Luciano in 1 week to reassess need to continue Lasix. . Sepsis Assessment - Evaluation Sepsis screening result: No Definite Risk - Focused Exam Vital Signs Temp Pulse Resp BP Pulse Ox 09/07/16 07:25 98.4 F 81 18 161/80 H 92 09/06/16 23:40 98.8 F 79 14 153/80 H 94 Respiratory exam: Present: CTA bilaterally Cardiovascular exam: Present: RRR, S1, S2 Capillary refill: < 2-3 Seconds Hospital Course Summary Disclaimer: The visit summary below is not to be considered part of the above Progress Note. Hospital Course: 08/21 Agree with admission to IRU for ongoing strengthening. Monitor six lower extremity post-op incisions. Alexis may be removed on August 29 as long as there is no concerns. Steri-strips to be placed at that time. Place Joseph wrap to left lower extremity to aid with swelling. Continue with scheduled Lasix 20 milligrams twice a day. Continue with oral potassium supplementation 10 milliequivalents twice a day. Will periodically monitor electrolytes. Lovenox SQ daily for DVT prophylaxis. Will only need ASA 81 mg at time of discharge. Continue to monitor bowel motivation as patient has had some mild diarrhea intermittently. Will decrease Colace to as needed. Prozac daily for depression. Encourage work with PT/OT for ongoing strengthening. The hospitalist services will continue to follow patient medically manage her existing comorbidities during her stay on the IRU unit At time of discharge medical care will return to primary care provider, Dr. Naina Luciano from [place], [place]. 08/27/16 Continue with current plan of care. Encourage work with PT and OT for ongoing strengthening. Change Lasix time to 6 a.m. and 2 p.m. to avoid increased urination at night. Given findings of vaginal prolapse. Discussed that she will need follow-up with gynecology. Did discuss using estrogen cream topically. At this point she would like to try controlling urination better with the Ditropan. Discussed and taught regarding [place] exercises to strengthen pelvic muscles. Lovenox subcutaneous daily for DVT prophylaxis. Will only need aspirin 81 milligrams at time of discharge. Will reevaluate patient tomorrow. May be able to remove lower extremity alexis. 08/28 Overall doing well. Continue with Ditropan to help with urination. Again, can consider an estrogen type cream for vaginal prolapse. At this point, patient would like to hold off on starting this. Order placed for nursing staff to remove all alexis to the lower extremities in place Steri-Strips over incisions. Continue with [place] for pain control. Encourage work with PT and OT for ongoing strengthening 08/31/16 Venous Doppler of the left lower extremity was negative for acute DVT. She was started on oral Bactrim overnight. Given continued fever. Will also add IV Rocephin 1 gram daily. Due to the increased pain in the left lower extremity. Physical therapy is on hold today. Continue with Ditropan to help with urination and discussed need for follow up with supervisor curing room following discharge. Did discuss use of estrogen vaginal cream as another option for prolapse. Given acute leukocytosis. Will recheck CBC and BMP tomorrow morning 09/01/16 10:36 ncreasing leukocytosis, redness, drainage to LLE -discussed with Dr. Garrett - He will plan on contacting cardiothoracic surgeon -will change Bactrim to Vancomycin (per pharmacy protocol). -Obtain blood cultures. -Continue Rocephin day #2 Check CXR d/t cough VSS - afebrile since evening of 08/30/16 LE Cellulitis (Dr. Garrett) -Concern for hospital acquired MRSA, will switch to Vanc, can keep rocephin for gram neg coverage, if not improving can add anaerobic coverage with flagyl -Discussed case with older as he was covering for [facility], he agreed with plan and noted that they would be happy to transfer pt back to [place] for tx if infection got worse and needed further care 09/02/16 09:06 LLE Cellulitis -Continue Vancomycin (day #2) and Rocephin (day #3). Consider adding Flagyl for anaerobic coverage. -there is some concern about rxn to vancomycin. Pt reports a thick tongue and funny feeling in her throat - resolved with Benadryl. Typical response per patient - requests Claritin, which is what she takes at home. -erythema has improved compared to yesterday but there is more drainage - serous in nature and no purulent material to culture -leukocytosis has resolved and she has been afebrile x48 hours -venous doppler on 08/31/16 was negative for DVT -if worsens, could obtain CT of her leg with contrast or transfer back to [place] (as per Dr. Garrett's note from yesterday) 09/04/16 13:38 LLE cellulitis -continues to improve -Continue Vancomycin (day #4) and Rocephin (day #5) -no fever or leukocytosis Normocytic anemia, likely surgical blood loss -hgb declined to 8.5 -asymptomatic -continue iron thrush -start Nystatin 09/05/16 11:28 09/05/16 *S/P CABG- Is overall doing very well. Continue Lasix BID with KCL replacement. She still appears fluid overloaded- edema, right jugular venous bounding. Will increase Lasix AM dosing, continue lower afternoon dose. Continue metoprolol. *Infected leg incision- Vanco #5, Ceftriaxone #6. May want to change to PO Clindamycin in the next day or so if continues to improve. Wound care per routine. *Urinary incontinence- Assess UA, bladder scan given recent [place] cath. Continue ditropan. Consider GUIDANCE CONSULTANT consult- outpt? *Depression- Doing well on Prozac. Instructed to notify us if any difficulty. *Anemia- Likely ABLA + reactive due to infection. Continue PO Iron. Recheck CBC in AM. 09/06/16 12:29 Cellulitis LLE -increasing swelling and erythema, remains afebrile -CT with contrast ordered - discussed allergy - she recently had a CT with contrast and did well with prednisone and Benadryl -discussed with CT - will give Solu-Medrol and Benadryl now and will obtain scan this afternoon -if positive for abscess, will need to discuss with Dr. Proctor -continue vanco (day #6) and rocephin (day #7) - may need to expand abx for anaerobic coverage -repeat CBC in am -discussed with Dr. Davidson and nursing staff and family Fluid overload -Lasix increased on 09/05 -tolerating well -check BMP tomorrow am. 09/07/16 11:59 Left lower extremity cellulitis -CT with contrast was done yesterday, showing subcutaneous edema, and postoperative seroma, no discrete drainable abscess. -She has completed 1 week of Rocephin and today will be her seventh dose of vancomycin. -Tomorrow will start clindamycin 300 mg QID x3 days to complete a ten-day course of antibiotics -Start taking probiotics (she likes Activia yogurt) -Consult wound nurse for home health dressing recommendations -Elevate leg while at rest -wrap leg with extra bandage while using orthotic Thrush -Nystatin was started on 09/04/16 -We'll provide prescription to go through 16 September, which would be a 2 week course Fluid overload -Lasix dose was increased on 09/05 -Electrolytes remained stable -Will dismiss home with Lasix 40 mg daily, and potassium 20 mEq for 1 week Hypertension -Lasix, as above -Monitor blood pressure at home -Continue metoprolol 25 mg BID -Follow-up with cardiology about increasing her metoprolol dose, if continues to run high at home Dental concern -call dentist and follow up [facility]ATE[facility] Discharge plans -Follow up with Dr. Cardona on 09/15/16 at 3:30. -Follow-up with Dr. Lee in 2-4 weeks -Follow-up with Dr. Luciano in 1 week to reassess need to continue Lasix. .
[2016-09-07] MEDS: FUROSEMIDE 20 MG TABLET PO SCH (13:58)
--- NOTE | 2016-09-07 17:23 | IRU Progress Note ---
Exam Vital Signs: Temp Pulse Resp BP Pulse Ox 97.8 F 80 18 143/69 H 95 09/07/16 15:00 09/07/16 15:00 09/07/16 15:00 09/07/16 15:00 09/07/16 15:00 Height: 1.6 m Weight: 122.9 kg Body Mass Index: 48.4 - Constitutional Present: no acute distress, well nourished, obese, cooperative Results - Labs CBC & Chem 7: 09/07/16 04:35 09/07/16 04:35 Sepsis Assessment - Evaluation Sepsis screening result: No Definite Risk - Focused Exam Vital Signs Temp Pulse Resp BP Pulse Ox 09/07/16 15:00 97.8 F 80 18 143/69 H 95 09/07/16 07:25 98.4 F 81 18 161/80 H 92 Respiratory exam: Present: CTA bilaterally Cardiovascular exam: Present: RRR, S1, S2 Capillary refill: < 2-3 Seconds IRU A/P (1) Myopathy Current visit: Yes Status: Acute (2) S/P CABG x 3 Current visit: Yes Status: Chronic No chest pain, managed by medical (3) Cellulitis Problem details: LLE Rocephin started 08/31 Vanco started 09/01 Current visit: Yes Status: Acute DVT Prophylaxis: SCD's, Lovenox - Course Hospital Course: Juan José Pearson MD: - Interventions to Obtain Goals PT Treatment Plan: Balance/Proprioception, Functional Activities, Gait Training , Patient/Family Education, Therapeutic Exercise
[2016-09-07] MEDS: POLYETHYL GLYCOL 3350 17gm PACKET PO SCH (22:07)
[2016-09-08] MEDS: OMEPRAZOLE 20 MG CAPSULE PO SCH (06:37)
[2016-09-08] MEDS: HYDROCODONE/APAP 5mg/325mg TABLET PO PRN ×2 (06:40→11:19)
--- NOTE | 2016-09-08 08:58 | IRU Progress Note ---
- Subjective/Serverity of Illness Planning to d/c. Feels she has made progress and ready to manage own adl's. Exam Vital Signs: Temp Pulse Resp BP Pulse Ox 98.4 F 77 20 145/77 H 95 09/07/16 22:00 09/07/16 22:00 09/07/16 22:00 09/07/16 22:00 09/07/16 22:00 Height: 1.6 m Weight: 122.9 kg Body Mass Index: 48.4 - Constitutional Present: no acute distress, well nourished, obese, cooperative Results - Labs CBC & Chem 7: 09/07/16 04:35 09/07/16 04:35 Sepsis Assessment - Evaluation Sepsis screening result: No Definite Risk - Focused Exam Vital Signs Temp Pulse Resp BP Pulse Ox 09/07/16 22:00 98.4 F 77 20 145/77 H 95 Respiratory exam: Present: CTA bilaterally Cardiovascular exam: Present: RRR, S1, S2 Capillary refill: < 2-3 Seconds IRU A/P (1) Myopathy Current visit: Yes Status: Acute Improvement in strength and stamina. Setting up plan for outpatient PT and OT. (2) S/P CABG x 3 Current visit: Yes Status: Chronic Medical following, patient has been stable. (3) Cellulitis Qualifiers: Qualified Code(s): L03.90 - Cellulitis, unspecified Problem details: LLE Rocephin started 08/31 Vanco started 09/01 Current visit: Yes Status: Acute Medical setting up outpatient medication. DVT Prophylaxis: SCD's, Lovenox - Course Hospital Course: Juan José Pearson MD: - Interventions to Obtain Goals PT Treatment Plan: Balance/Proprioception, Functional Activities, Gait Training , Patient/Family Education, Therapeutic Exercise
[2016-09-08] MEDS: ASCORBIC ACID 500 MG TABLET PO SCH (09:20)
[2016-09-08] MEDS: OXYBUTYNIN XL 5 MG TABLET PO SCH (09:20)
[2016-09-08] MEDS: FUROSEMIDE 40 MG TABLET PO SCH (09:20)
[2016-09-08] MEDS: NYSTATIN 500,000 units/5 ml ORAL LIQUID PO SCH ×2 (09:20→13:37)
[2016-09-08] MEDS: CLINDAMYCIN 300 MG CAPSULE PO SCH ×2 (09:20→13:37)
[2016-09-08] MEDS: FERROUS SULFATE 324 MG TABLET PO SCH (09:21)
[2016-09-08] MEDS: ASPIRIN 81 MG CHEWABLE TABLET PO SCH (09:21)
[2016-09-08] MEDS: ENOXAPARIN 40 MG/0.4 ML INJECTION SQ SCH (09:21)
[2016-09-08] MEDS: FLUoxetine 20 MG CAPSULE PO SCH (09:21)
--- NOTE | 2016-09-08 10:18 | Progress Note ---
Subjective: Krysta is seen this morning in follow up for her recent CABG x3 with vein harvesting from her left lower leg. She is scheduled to discharge home today but expressed some concern about increasing redness to her left lower leg. She has been followed by the wound care team since her admission. She denies any other concerns including no fevers, chills, chest pain, shortness of breath, abdominal pain, nausea, vomiting or dysuria. No increasing leg pain or swelling. Her appetite remains good and her bowels are moving. The wound care team was contacted and evaluated the patient explaining that during bandage change yesterday 09/07, additional pressure was applied to the left lower leg in light of the increasing lymphadema. Review of the medical records indicate that Krysta remains on Clindamycin for antimicrobial coverage. Wound care team changed the dressing and recommended that home health change her dressing every 3 days and as needed and recommended that Krysta follow up in the wound clinic next week (09/14-09/18) for reevaluation. Krysta was encouraged to call at any time with any additional questions or concerns. Objective Vital signs: Temp Pulse Resp BP Pulse Ox 98.2 F 89 20 151/84 H 94 09/08/16 08:13 09/08/16 08:13 09/08/16 08:13 09/08/16 08:13 09/08/16 08:13 Body Mass Index: 48.4 - Constitutional Present: no acute distress, well nourished, obese, cooperative - Routine HEENT Exam Head: Present: normocephalic, atraumatic Eye: Present: PERRL. Absent: conjunctival icterus, scleral injection ENT: Present: mucous membranes moist - Routine Respiratory Exam Present: CTA bilaterally. Absent: accessory muscle use, respiratory distress - Routine Cardiovascular Exam Present: RRR, S1, S2 - Routine Abdominal Exam Present: soft, normoactive bowel sounds, non distended, non tender - Routine Extremities Exam Comments: bilateral lower extremity swelling noted 1-2+; left lower extremity with erythema surrounding incisions and serous discharge noted on bandage. Wound care present at time of exam and changed dressing; 2+ pedal pulses bilaterally and N/V intact. - Routine Back/Spine/Pelvis Exam Back/Spine: Absent: CVA tenderness - Routine Musculoskeletal Exam Musculoskeletal: no clubbing or cyanosis, normal strength - Routine Skin Exam Present: erythema (left lower leg - unchanged), dry, warm. Absent: cyanosis, jaundice, rash Comments: incision sites evaluated by wound care team and dressing changed to left lower leg; clear serous drainage noted on exam to incision sites and bandage. - Routine Neurological Exam Present: alert, oriented X3, normal tone - Routine Lymphatic Exam Lymphatic: Present: lymphedema (left) - Routine Psychiatric Exam Present: normal affect, normal thought process, cooperative Results - Labs CBC & Chem 7: 09/07/16 04:35 09/07/16 04:35 Assessment and Plan (1) S/P CABG x 3 Current visit: Yes Status: Chronic (2) Myopathy Current visit: Yes Status: Acute (3) Cellulitis Problem details: LLE Rocephin started 08/31 Vanco started 09/01 Current visit: Yes Status: Acute Assessment and Plan: Left lower extremity cellulitis -CT with contrast was done yesterday, showing subcutaneous edema, and postoperative seroma, no discrete drainable abscess. -She has completed 1 week of Rocephin and today will be her seventh dose of vancomycin. -Tomorrow will start clindamycin 300 mg QID x3 days to complete a ten-day course of antibiotics -Start taking probiotics (she likes Activia yogurt) -Consult wound nurse for home health dressing recommendations -Elevate leg while at rest -wrap leg with extra bandage while using orthotic Thrush -Nystatin was started on 09/04/16 -We'll provide prescription to go through 16 September, which would be a 2 week course Fluid overload -Lasix dose was increased on 09/05 -Electrolytes remained stable -Will dismiss home with Lasix 40 mg daily, and potassium 20 mEq for 1 week Hypertension -Lasix, as above -Monitor blood pressure at home -Continue metoprolol 25 mg BID -Follow-up with cardiology about increasing her metoprolol dose, if continues to run high at home Dental concern -call dentist and follow up [facility] Discharge plans -Follow up with Dr. Cardona on 09/15/16 at 3:30. -Follow-up with Dr. Lee in 2-4 weeks -Follow-up with Dr. Luciano in 1 week to reassess need to continue Lasix. . Sepsis Assessment - Evaluation Sepsis screening result: No Definite Risk - Focused Exam Vital Signs Temp Pulse Resp BP Pulse Ox 09/08/16 08:13 98.2 F 89 20 151/84 H 94 Respiratory exam: Present: CTA bilaterally Cardiovascular exam: Present: RRR, S1, S2 Capillary refill: < 2-3 Seconds Hospital Course Summary Disclaimer: The visit summary below is not to be considered part of the above Progress Note. Hospital Course: 08/21 Agree with admission to IRU for ongoing strengthening. Monitor six lower extremity post-op incisions. [place] may be removed on August 29 as long as there is no concerns. Steri-strips to be placed at that time. Place Joseph wrap to left lower extremity to aid with swelling. Continue with scheduled Lasix 20 milligrams twice a day. Continue with oral potassium supplementation 10 milliequivalents twice a day. Will periodically monitor electrolytes. Lovenox SQ daily for DVT prophylaxis. Will only need ASA 81 mg at time of discharge. Continue to monitor bowel motivation as patient has had some mild diarrhea intermittently. Will decrease Colace to as needed. Prozac daily for depression. Encourage work with PT/OT for ongoing strengthening. The hospitalist services will continue to follow patient medically manage her existing comorbidities during her stay on the IRU unit At time of discharge medical care will return to primary care provider, Dr. Naina Luciano from [place], [place]. 08/27/16 Continue with current plan of care. Encourage work with PT and OT for ongoing strengthening. Change Lasix time to 6 a.m. and 2 p.m. to avoid increased urination at night. Given findings of vaginal prolapse. Discussed that she will need follow-up with gynecology. Did discuss using estrogen cream topically. At this point she would like to try controlling urination better with the Ditropan. Discussed and taught regarding [place] exercises to strengthen pelvic muscles. Lovenox subcutaneous daily for DVT prophylaxis. Will only need aspirin 81 milligrams at time of discharge. Will reevaluate patient tomorrow. May be able to remove lower extremity dionicio. 08/28 Overall doing well. Continue with Ditropan to help with urination. Again, can consider an estrogen type cream for vaginal prolapse. At this point, patient would like to hold off on starting this. Order placed for nursing staff to remove all dionicio to the lower extremities in place Steri-Strips over incisions. Continue with Novice for pain control. Encourage work with PT and OT for ongoing strengthening 08/31/16 Venous Doppler of the left lower extremity was negative for acute DVT. She was started on oral Bactrim overnight. Given continued fever. Will also add IV Rocephin 1 gram daily. Due to the increased pain in the left lower extremity. Physical therapy is on hold today. Continue with Ditropan to help with urination and discussed need for follow up with machine plug shaper following discharge. Did discuss use of estrogen vaginal cream as another option for prolapse. Given acute leukocytosis. Will recheck CBC and BMP tomorrow morning 09/01/16 10:36 ncreasing leukocytosis, redness, drainage to LLE -discussed with Dr. Garrett - He will plan on contacting cardiothoracic surgeon -will change Bactrim to Vancomycin (per pharmacy protocol). -Obtain blood cultures. -Continue Rocephin day #2 Check CXR d/t cough VSS - afebrile since evening of 08/30/16 LE Cellulitis (Dr. Garrett) -Concern for hospital acquired MRSA, will switch to Vanc, can keep rocephin for gram neg coverage, if not improving can add anaerobic coverage with flagyl -Discussed case with older as he was covering for [place] [facility], he agreed with plan and noted that they would be happy to transfer pt back to [facility] for tx if infection got worse and needed further care 09/02/16 09:06 LLE Cellulitis -Continue Vancomycin (day #2) and Rocephin (day #3). Consider adding Flagyl for anaerobic coverage. -there is some concern about rxn to vancomycin. Pt reports a thick tongue and funny feeling in her throat - resolved with Benadryl. Typical response per patient - requests Claritin, which is what she takes at home. -erythema has improved compared to yesterday but there is more drainage - serous in nature and no purulent material to culture -leukocytosis has resolved and she has been afebrile x48 hours -venous doppler on 08/31/16 was negative for DVT -if worsens, could obtain CT of her leg with contrast or transfer back to [facility] (as per Dr. Garrett's note from yesterday) 09/04/16 13:38 LLE cellulitis -continues to improve -Continue Vancomycin (day #4) and Rocephin (day #5) -no fever or leukocytosis Normocytic anemia, likely surgical blood loss -hgb declined to 8.5 -asymptomatic -continue iron thrush -start Nystatin 09/05/16 11:28 09/05/16 *S/P CABG- Is overall doing very well. Continue Lasix BID with KCL replacement. She still appears fluid overloaded- edema, right jugular venous bounding. Will increase Lasix AM dosing, continue lower afternoon dose. Continue metoprolol. *Infected leg incision- Vanco #5, Ceftriaxone #6. May want to change to PO Clindamycin in the next day or so if continues to improve. Wound care per routine. *Urinary incontinence- Assess UA, bladder scan given recent [place] cath. Continue ditropan. Consider DIRECTOR OF [employer] consult- outpt? *Depression- Doing well on Prozac. Instructed to notify us if any difficulty. *Anemia- Likely ABLA + reactive due to infection. Continue PO Iron. Recheck CBC in AM. 09/06/16 12:29 Cellulitis LLE -increasing swelling and erythema, remains afebrile -CT with contrast ordered - discussed allergy - she recently had a CT with contrast and did well with prednisone and Benadryl -discussed with CT - will give Solu-Medrol and Benadryl now and will obtain scan this afternoon -if positive for abscess, will need to discuss with Dr. Proctor -continue vanco (day #6) and rocephin (day #7) - may need to expand abx for anaerobic coverage -repeat CBC in am -discussed with Dr. Davidson and nursing staff and family Fluid overload -Lasix increased on 09/05 -tolerating well -check BMP tomorrow am. 09/07/16 11:59 Left lower extremity cellulitis -CT with contrast was done yesterday, showing subcutaneous edema, and postoperative seroma, no discrete drainable abscess. -She has completed 1 week of Rocephin and today will be her seventh dose of vancomycin. -Tomorrow will start clindamycin 300 mg QID x3 days to complete a ten-day course of antibiotics -Start taking probiotics (she likes Activia yogurt) -Consult wound nurse for home health dressing recommendations -Elevate leg while at rest -wrap leg with extra bandage while using orthotic Thrush -Nystatin was started on 09/04/16 -We'll provide prescription to go through 16 September, which would be a 2 week course Fluid overload -Lasix dose was increased on 09/05 -Electrolytes remained stable -Will dismiss home with Lasix 40 mg daily, and potassium 20 mEq for 1 week Hypertension -Lasix, as above -Monitor blood pressure at home -Continue metoprolol 25 mg BID -Follow-up with cardiology about increasing her metoprolol dose, if continues to run high at home Dental concern -call dentist and follow up [facility] Discharge plans -Follow up with Dr. Cardona on 09/15/16 at 3:30. -Follow-up with Dr. Lee in 2-4 weeks -Follow-up with Dr. Luciano in 1 week to reassess need to continue Lasix. -Follow-up with [facility] in 1 week; patient to call for appointment time. -Home Health to change wound bandage every 3 days AND as needed; monitor for signs of infection including increasing redness, swelling, pus, change or worsening. . 09/08/16 10:21 09/08/16 10:24 *S/P CABG- Overall is doing well. Scheduled for discharge home today, 09/08. Continue Lasix BID with KCL replacement. Encouraged close monitoring for fluid overload and edema. Continue metoprolol. Will discontinue Lovenox on discharge and continue ASA 81mg daily at home. *Fluid overload Lasix dose was increased on 09/05; Electrolytes remained stable; Will dismiss home with Lasix 40 mg daily, and potassium 20 mEq for 1 week. Monitor weight closely. *Hypertension Continue Lasix, as above. Monitor blood pressure at home. Continue metoprolol 25 mg BID. Follow-up with cardiology about increasing her metoprolol dose, if continues to run high at home *Left lower leg cellulitis- Wounds evaluated by wound care today and dressing changed. Wound care team recommended home health changing dressings every 3 days AND as needed. Monitor closely for signs of worsening infection. Continue Clindamycin 300mg QID on discharge to be completed on 09/10. Follow up in wound care clinic next week (-09/18) for reevaluation and sooner if needed. Encourage probiotics (Activia yogurt). Elevate leg while at rest and wrap leg with extra bandage while using orthotic. *Urinary incontinence- Assess UA, bladder scan given recent [place] cath. Continue ditropan. Consider [employer] consult- outpt? *Depression- Doing well on Prozac. Instructed to notify us if any difficulty. *Anemia- Likely ABLA + reactive due to infection. Continue PO Iron. Stable at 8.7 and patient is asymptomatic. Recommend recheck as outpatient. *Thrush Nystatin was started on 09/04/16. We'll provide prescription to go through 16 September , which would be a 2 week course 09/08/16 10:29
--- NOTE | 2016-09-08 13:51 | Discharge Summary ---
Discharge Information Date of admission: 08/20/16 16:15 Anticipated date of discharge: 09/08/16 Attending Physician: Juan José Pearson MD Consults: 08/26/16 18:26 Case Management Consult [CONS] Routine Reason For Exam: Discharge Planning 08/26/16 18:27 Physician [Physician Consult] [CONS] Routine Consulting Provider: Rajan Garrido Reason For Exam: post CABG, HTN Ordering Provider has Notified Supervisor Wash House: Yes 09/01/16 Pharmacy Consult [CONS] Routine Pharmacy Consult: Vancomycin 09/02/16 10:45 Dietary Consult [CONS] Routine Comment: Reason For Exam: 09/07/16 09:53 Wound Vein Clinic Consult [CONS] Routine 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 - plans on going home with home health 09/08 - Discharge Diagnosis (1) Myopathy Status: Acute (2) S/P CABG x 3 Status: Chronic (3) Cellulitis Problem Details: LLE Rocephin started 08/31 Vanco started 09/01 Status: Acute - Laboratory Labs: 09/07/16 04:35 09/07/16 04:35 - Microbiology Microbiology 09/01/16 10:57 Peripheral/Iv Start Blood Culture - Final No Growth After 5 Days 09/01/16 11:05 Peripheral/Iv Start Blood Culture - Final No Growth After 5 Days 08/31/16 00:55 Peripheral/Iv Start Blood Culture - Final No Growth After 5 Days 08/31/16 00:55 Peripheral/Iv Start Blood Culture - Final No Growth After 5 Days History of Present Illness HPI: 09/08/16 14:01 60-year-old female admitted to IRU after 3 vessel CABG. Patient was initially to undergo right hip replacement but came in for cardiac eval preop. She was identified to have coronary artery disease with obstructed vessels. She was sent to [facility] for evaluation. Ultimately cardiothoracic surgery performed 3 vessel bypa with donor veins from both legs. Patient is too weak to go home and manage ADLs. Therefore she is being admitted for IRU care and strengthening. She is here to have the hip replacement performed, but understands that she will need to work through these issues and regain strength prior to that procedure. Currently no chest pain except postop soreness. Hospital Course Hospital course: 08/21 Agree with admission to IRU for ongoing strengthening. Monitor six lower extremity post-op incisions. Beverly may be removed on August 29 as long as there is no concerns. Steri-strips to be placed at that time. Place Joseph wrap to left lower extremity to aid with swelling. Continue with scheduled Lasix 20 milligrams twice a day. Continue with oral potassium supplementation 10 milliequivalents twice a day. Will periodically monitor electrolytes. Lovenox SQ daily for DVT prophylaxis. Will only need ASA 81 mg at time of discharge. Continue to monitor bowel motivation as patient has had some mild diarrhea intermittently. Will decrease Colace to as needed. Prozac daily for depression. Encourage work with PT/OT for ongoing strengthening. The hospitalist services will continue to follow patient medically manage her existing comorbidities during her stay on the IRU unit At time of discharge medical care will return to primary care provider, Dr. Naina Luciano from [place], [place]. 08/27/16 Continue with current plan of care. Encourage work with PT and OT for ongoing strengthening. Change Lasix time to 6 a.m. and 2 p.m. to avoid increased urination at night. Given findings of vaginal prolapse. Discussed that she will need follow-up with gynecology. Did discuss using estrogen cream topically. At this point she would like to try controlling urination better with the Ditropan. Discussed and taught regarding [place] exercises to strengthen pelvic muscles. Lovenox subcutaneous daily for DVT prophylaxis. Will only need aspirin 81 milligrams at time of discharge. Will reevaluate patient tomorrow. May be able to remove lower extremity dionicio. 08/28 Overall doing well. Continue with Ditropan to help with urination. Again, can consider an estrogen type cream for vaginal prolapse. At this point, patient would like to hold off on starting this. Order placed for nursing staff to remove all dionicio to the lower extremities in place Steri-Strips over incisions. Continue with [place] for pain control. Encourage work with PT and OT for ongoing strengthening 08/31/16 Venous Doppler of the left lower extremity was negative for acute DVT. She was started on oral Bactrim overnight. Given continued fever. Will also add IV Rocephin 1 gram daily. Due to the increased pain in the left lower extremity. Physical therapy is on hold today. Continue with Ditropan to help with urination and discussed need for follow up with nuclear weapons mechanical specialist following discharge. Did discuss use of estrogen vaginal cream as another option for prolapse. Given acute leukocytosis. Will recheck CBC and BMP tomorrow morning 09/01/16 10:36 ncreasing leukocytosis, redness, drainage to LLE -discussed with Dr. Garrett - He will plan on contacting cardiothoracic surgeon -will change Bactrim to Vancomycin (per pharmacy protocol). -Obtain blood cultures. -Continue Rocephin day #2 Check CXR d/t cough VSS - afebrile since evening of 08/30/16 LE Cellulitis (Dr. Garrett) -Concern for hospital acquired MRSA, will switch to Vanc, can keep rocephin for gram neg coverage, if not improving can add anaerobic coverage with flagyl -Discussed case with older as he was covering for [facility], he agreed with plan and noted that they would be happy to transfer pt back to [place] for tx if infection got worse and needed further care 09/02/16 09:06 LLE Cellulitis -Continue Vancomycin (day #2) and Rocephin (day #3). Consider adding Flagyl for anaerobic coverage. -there is some concern about rxn to vancomycin. Pt reports a thick tongue and funny feeling in her throat - resolved with Benadryl. Typical response per patient - requests Claritin, which is what she takes at home. -erythema has improved compared to yesterday but there is more drainage - serous in nature and no purulent material to culture -leukocytosis has resolved and she has been afebrile x48 hours -venous doppler on 08/31/16 was negative for DVT -if worsens, could obtain CT of her leg with contrast or transfer back to [place] (as per Dr. Garrett's note from yesterday) 09/04/16 13:38 LLE cellulitis -continues to improve -Continue Vancomycin (day #4) and Rocephin (day #5) -no fever or leukocytosis Normocytic anemia, likely surgical blood loss -hgb declined to 8.5 -asymptomatic -continue iron thrush -start Nystatin 09/05/16 11:28 09/05/16 *S/P CABG- Is overall doing very well. Continue Lasix BID with KCL replacement. She still appears fluid overloaded- edema, right jugular venous bounding. Will increase Lasix AM dosing, continue lower afternoon dose. Continue metoprolol. *Infected leg incision- Vanco #5, Ceftriaxone #6. May want to change to PO Clindamycin in the next day or so if continues to improve. Wound care per routine. *Urinary incontinence- Assess UA, bladder scan given recent Hammond cath. Continue ditropan. Consider UROLOGIC NURSE consult- outpt? *Depression- Doing well on Prozac. Instructed to notify us if any difficulty. *Anemia- Likely ABLA + reactive due to infection. Continue PO Iron. Recheck CBC in AM. 09/06/16 12:29 Cellulitis LLE -increasing swelling and erythema, remains afebrile -CT with contrast ordered - discussed allergy - she recently had a CT with contrast and did well with prednisone and Benadryl -discussed with CT - will give Solu-Medrol and Benadryl now and will obtain scan this afternoon -if positive for abscess, will need to discuss with Dr. Proctor -continue vanco (day #6) and rocephin (day #7) - may need to expand abx for anaerobic coverage -repeat CBC in am -discussed with Dr. Davidson and nursing staff and family Fluid overload -Lasix increased on 09/05 -tolerating well -check BMP tomorrow am. 09/07/16 11:59 Left lower extremity cellulitis -CT with contrast was done yesterday, showing subcutaneous edema, and postoperative seroma, no discrete drainable abscess. -She has completed 1 week of Rocephin and today will be her seventh dose of vancomycin. -Tomorrow will start clindamycin 300 mg QID x3 days to complete a ten-day course of antibiotics -Start taking probiotics (she likes Activia yogurt) -Consult wound nurse for home health dressing recommendations -Elevate leg while at rest -wrap leg with extra bandage while using orthotic Thrush -Nystatin was started on 09/04/16 -We'll provide prescription to go through 16 September, which would be a 2 week course Fluid overload -Lasix dose was increased on 09/05 -Electrolytes remained stable -Will dismiss home with Lasix 40 mg daily, and potassium 20 mEq for 1 week Hypertension -Lasix, as above -Monitor blood pressure at home -Continue metoprolol 25 mg BID -Follow-up with cardiology about increasing her metoprolol dose, if continues to run high at home Dental concern -call dentist and follow up MATEUS Discharge plans -Follow up with Dr. Cardona on 09/15/16 at 3:30. -Follow-up with Dr. Lee in 2-4 weeks -Follow-up with Dr. Luciano in 1 week to reassess need to continue Lasix. -Follow-up with [facility]ound Care Clinic in 1 week; patient to call for appointment time. -Home Health to change wound bandage every 3 days AND as needed; monitor for signs of infection including increasing redness, swelling, pus, change or worsening. . 09/08/16 10:21 09/08/16 10:24 *S/P CABG- Overall is doing well. Scheduled for discharge home today, 09/08. Continue Lasix BID with KCL replacement. Encouraged close monitoring for fluid overload and edema. Continue metoprolol. Will discontinue Lovenox on discharge and continue ASA 81mg daily at home. *Fluid overload Lasix dose was increased on 09/05; Electrolytes remained stable; Will dismiss home with Lasix 40 mg daily, and potassium 20 mEq for 1 week. Monitor weight closely. *Hypertension Continue Lasix, as above. Monitor blood pressure at home. Continue metoprolol 25 mg BID. Follow-up with cardiology about increasing her metoprolol dose, if continues to run high at home *Left lower leg cellulitis- Wounds evaluated by wound care today and dressing changed. Wound care team recommended home health changing dressings every 3 days AND as needed. Monitor closely for signs of worsening infection. Continue Clindamycin 300mg QID on discharge to be completed on 09/10. Follow up in wound care clinic next week (-09/18) for reevaluation and sooner if needed. Encourage probiotics (Activia yogurt). Elevate leg while at rest and wrap leg with extra bandage while using orthotic. *Urinary incontinence- Assess UA, bladder scan given recent Hammond cath. Continue ditropan. Consider UROLOGIC NURSE consult- outpt? *Depression- Doing well on Prozac. Instructed to notify us if any difficulty. *Anemia- Likely ABLA + reactive due to infection. Continue PO Iron. Stable at 8.7 and patient is asymptomatic. Recommend recheck as outpatient. *Thrush Nystatin was started on 09/04/16. We'll provide prescription to go through 16 September , which would be a 2 week course 09/08/16 10:29 DVT Prophylaxis: SCD's (one leg only due to vein harvest and cellulitis) Discharge Plan - Med Rec/Dispo Referrals/Follow Up: Yves Lee MD [Physician] - Moo Eid MD [Physician] - 09/16/16 8:30 am (WOUND TEAM) Missy Instructions: Cellulitis (GEN), Oral Candidiasis (GEN), Chronic Hypertension (DC), Uterine Prolapse (GEN) Additional Instructions: Discharge plans -Follow up with Dr. Cardona on 09/15/16 at 3:30. -Follow-up with Dr. Lee on 10/14/16 at 11:50 am. -Follow-up with Dr. Luciano in 1 week to reassess need to continue Lasix. at 10:30 am . Prescriptions: New Nystatin Oral Liq. [Mycostatin] 5 ml PO QID #60 ml Oxybutynin Xl [Ditropan Xl] 10 mg PO DAILY #30 Clindamycin HCl 300 mg PO QID #12 capsule Furosemide [Lasix] 1 tab PO DAILY #10 tab Lactobacillus [Culturelle] 1 cap PO TIDWM #30 capsule Continue Omeprazole 40 mg PO ACB #0 cap Ferrous Sulfate 325 mg PO BIDWM Miralax 17 gm PO HS Aspirin 1 tab PO DAILY #0 tab Docusate Sodium [Colace] 1 cap PO BID #0 cap Polyethylene Glycol 3350 [Miralax] 17 g PO HS #0 bottle Ascorbic Acid 1 tab PO DAILY #0 tab Hydrocodone/Acetaminophen [Lortab 5-325 mg Tablet] 1 - 2 tab PO Q4HPRN PRN # 20 tab PRN Reason: PAIN Fluoxetine HCl [Prozac] 20 mg PO DAILY #0 cap Metoprolol Tartrate [Lopressor] 25 mg PO BID #0 Changed Klor-Con 10 10 meq PO WB #10 Discontinued Ascorbic Acid 500 mg PO DAILY Aspirin Chewable 81 mg PO DAILY Colace 100 mg PO BID diphenhydrAMINE HCl [Benadryl] 1 - 2 cap PO Q6HPRN #0 cap Ferrous Sulfate 1 tab PO BIDWM #0 tab Acetaminophen [Tylenol] 2 tab PO Q4HPRN #0 tab Potassium Chloride [Klor-Con 10] 10 meq PO BID 14 Days Bisacodyl [Dulcolax] 1 supp RECTALLY DAILY PRN #0 PRN Reason: STOOL SOFTENING Sod Phos,M-B/Na Phos,Di-Ba [Fleet Enema] 1 enema RECTALLY PRN #0 enema Ondansetron [Zofran Odt] 4 mg PO Q6HR PRN #0 tab PRN Reason: PRN ORDERS Acetaminophen 650 mg PO Q4H PRN PRN Reason: Pain Acetaminophen 650 mg PO Q4H PRN PRN Reason: Pain Dulcolax 10 mg RECTALLY DAILY PRN PRN Reason: Constipation diphenhydrAMINE HCl 25 - 50 mg PO Q6H PRN PRN Reason: Prn Orders Furosemide 20 mg PO BID Metoprolol Tartrate 25 mg PO BID Fleet Enema 1 enema RECTALLY PRN PRN PRN Reason: Prn Orders Zofran Odt 4 mg PO Q6H PRN PRN Reason: Nausea &/Or Vomiting Furosemide 1 tab PO BID 14 Days - Disposition 01 Discharged Home, Self-Care
== END 2016-09-08 15:00 | disposition home health service (06) | DRG 92 ==
PROVIDERS: ADMIT Family Medicine; ATTEND Family Medicine

== ENCOUNTER 2017-02-02 06:44 | Inpatient (IN) ==
[~2017-02-02 06:44] MED LIST changes: +ACETAMINOPHEN 500 MG TABLET PO ONE; -ASPI325T PO; -ATEN100T PO; +CLINDAMYCIN PB 900 MG/50 ML BAG IV ONE; +DEXAMETHASONE 4 MG/ML INJECTION IVP ONE; +FAMOTIDINE PB 20 MG/50 ML BAG IV ONE; -FLUO20CA30 PO; -HYDR-4009 PO; +LIDOCAINE 1% (10mg/ml) 2mL INJ PF SDV ID ONE; +METOCLOPRAMIDE 10mg/2ml INJECTION IVP ONE; +NOZIN NASAL SWAB NAS ONE; -OMEP20CA10 PO; +ONDANSETRON 4 MG/2 ML INJECTION IVP ONE; -P-EP-93 PO; -SALINE FLUSH 10ml SYRINGE IVF PRN; -TRIA1TAB3 PO
[2017-02-02 07:28] VITALS: BMI 42.8
[2017-02-02] MEDS ORDERED: PROPOFOL 500 MG/50 ML VIAL IV ONE (07:37)
[2017-02-02] MEDS: NS 1,000 ML IV SCH ×3 (07:55→12:27)
--- NOTE | 2017-02-02 07:56 | Anesthesia Preoperative Report ---
Anesthesia Preoperative Record - Date and Time Date: 02/02/17 Preoperative Diagnosis: RT SHANE M16.11 Proposed Procedure: Right SHANE NPO Since Date: 02/02/17 NPO Since Time: 05:00 Allergies/Adverse Reactions: Allergies Allergy/AdvReac Type Severity Reaction Status Date / Time doxycycline Allergy Intermediate Swelling Verified 02/02/17 07:33 of Lip/Tongue/Throat hydrochlorothiazide Allergy Intermediate Swelling Verified 02/02/17 07:33 [From Hyzaar] of Lip/Tongue/Throat iodine Allergy Intermediate facial Verified 02/02/17 07:33 tingling and swelling roof of mouth. losartan [From Hyzaar] Allergy Intermediate Swelling Verified 02/02/17 07:33 of Lip/Tongue/Throat NSAIDS (Non-Steroidal Allergy Intermediate Swelling Verified 02/02/17 07:33 Anti-Inflamma of Lip/Tongue/Throat Penicillins Allergy Intermediate THROAT Verified 02/02/17 07:33 'TIGHTENS' povidone-iodine Allergy Intermediate facial Verified 02/02/17 07:33 tingiling and swelling roof of mouth procaine Allergy Intermediate FACIAL Verified 02/02/17 07:33 TINGLING AND THROAT 'TIGHTENS' rosuvastatin [From Crestor] Allergy Intermediate edema Verified 02/02/17 07:33 Bgptijk-Oes-Jjx Reductase Allergy Intermediate MYALGIAS Verified 02/02/17 07:33 Inhibitor - Vital Signs Vital Signs: Temperature 97.9 F 02/02/17 07:28 Pulse Rate 83 02/02/17 07:28 Respiratory Rate 17 02/02/17 07:28 Blood Pressure 189/99 H 02/02/17 07:28 Pulse Oximetry 98 02/02/17 07:28 Height and Weight: Height 1.6 m Weight 109.7 kg Body Mass Index 42.8 - Medications Inpatient Medications: Current Medications Sodium Chloride (Normal Saline) 1,000 mls @ 50 mls/hr IV .Q20H DARA Epinephrine HCl 0.25 mg/Bupivacaine HCl 30 ml/Morphine Sulfate 15 mg/ Sodium Chloride 63.25 mls @ 0 mls/hr OPSITE INTRAOP ONE; Per Protocol PRN Reason: Protocol Stop: 02/02/17 08:01 Sodium Chloride (Iv Flush) 10 - 80 ml IV PRN PRN PRN Reason: Flushing Tranexamic Acid (Cyklokapron) 1,000 mg TOP INTRAOP ONE Stop: 02/02/17 16:53 Home Medications: Home Medications Medication Instructions Recorded Confirmed Type Fluoxetine HCl [Prozac] 20 mg PO DAILY #0 cap 06/29/16 02/02/17 History Aspirin 81 mg PO DAILY #0 tab 08/20/16 02/02/17 History Metoprolol Tartrate [Lopressor] 25 mg PO BID #0 08/20/16 02/02/17 History Ferrous Sulfate [Iron] 325 mg PO DAILY 01/26/17 02/01/17 History Multivitamin [Multivitamins] 1 each PO DAILY 01/26/17 02/02/17 History Omeprazole [Prilosec] 20 mg PO DAILY 01/26/17 02/02/17 History Artificial Tears [Tears Naturale] 1 drop OP PRN PRN 02/01/17 02/02/17 History Simethicone [Gas-X] 125 mg PO PRN PRN 02/01/17 02/02/17 History Acetaminophen [Tylenol] 1,000 mg PO Q6-8HPRN PRN 02/02/17 02/02/17 History Is Patient on Beta Pedro?: Yes - Medical History Cardiovascular: Reports: Coronary Artery Disease, Hypertension, High Cholesterol Gastrointestional: Reports: Morbid Obesity - Surgical History Cardiac Surgeries/Treatments: Reports: Cardiac Catheterization, Coronary Artery Bypass Graft (July 2016-3 vessel) GI Surgery/Treatments: Reports: Colonoscopy Reproductive Surgery/Treatment: Reports: Other (breast biopsy) Anesthesia Reactions: None Hx Family Anesthesia Reaction: No History of Motion Sickness: No - Social History Smoking Status: Never smoker Hx Chewing Tobacco Use: No Second Hand Exposure: No Substance Use Type: does not use Alcohol Intake Frequency: does not drink - Pertinent Findings Laboratory: CBC and BMP 02/02/17 07:23 02/02/17 07:23 BMP 02/02/17 07:23 Sodium 136 Potassium 4.2 Chloride 105 Carbon Dioxide 22 BUN 29.0 H Creatinine 1.0 Glucose 96 Calcium 9.4 Liver Function 02/02/17 Range/Units 07:23 Total Bilirubin 0.40 (0.20-1.30) MG/DL AST 19 (14-36) U/L ALT 31 (9-52) U/L Alkaline Phosphatase 73 (38-126) U/L Albumin 4.0 (3.5-5.0) G/DL EKG: Sinus Rhythm - Physical Exam Respiratory Exam: Present: lungs clear Cardiovascular Exam: Present: regular rate and rhythm, no murmur - Airway Assessment Mallampati Score: I TMD: 3 Fingerbreadths Neck Extension: good Teeth: chipped teeth/crowns Overall Assessment: no airway concerns - ASA ASA Score: 3 - Plan Regional/Trunk Block: Spinal - Discussion Discussion: Discussed risks/options/alternatives of anesthesia and questions answered. Patient consents. Nursing pain assessment noted. Attestation Statement: Prior to the delivery of any anesthetic medication, I examined the patient, developed the plan, obtained the patient's consent and discussed the risk and benefits of the procedure with the patient/guardian. - Additional Information Seen by Anesthesia: Yes
[2017-02-02] MEDS ORDERED: EPINEPHrine PF 0.25 MG, BUPIVACAINE 0.25% PF 30 ML, MORPHINE SULFATE 15 MG in NS 30 ML OPSITE ONE (08:00)
[2017-02-02] MEDS ORDERED: SUCCINYLCHOLINE 20mg/mL 10mL INJECTION ONE (09:12)
[2017-02-02] MEDS ORDERED: ROCURONIUM 50 MG/5 ML INJECTION IVP ONE (09:20)
[2017-02-02] MEDS ORDERED: FentaNYL 250 MCG/5 ML INJECTION ONE (09:22)
[2017-02-02] MEDS ORDERED: KETAMINE 500 MG/10 ML INJECTION ONE (09:24)
[2017-02-02] MEDS ORDERED: PROPOFOL 20 ML ONE (09:37)
[2017-02-02] MEDS ORDERED: VANCOMYCIN 1,000 MG INJECTION ONE (09:39)
[2017-02-02] MEDS ORDERED: HYDROMORPHONE 2 MG/ML INJECTION ONE (10:05)
[2017-02-02] MEDS ORDERED: GLYCOPYRROLATE 0.4 MG/2 ML INJECTION ONE (10:09)
[2017-02-02] MEDS ORDERED: EPHEDRINE 50mg/ml INJECTION ONE (10:24)
[2017-02-02] MEDS: TRANEXAMIC ACID 1,000mg/10ml INJECTION TOP ONE ×2 (10:25→16:37)
[2017-02-02] MEDS ORDERED: VANCOMYCIN 1,000 MG INJECTION IAR ONE (10:27)
[2017-02-02] MEDS ORDERED: SUGAMMADEX 200mg/2ml INJECTION IVP ONE (10:31)
--- NOTE | 2017-02-02 10:35 | Operative Note ---
- Procedure Preoperative Diagnosis: Right hip primary degenerative joint disease Postoperative Diagnosis: Same as preoperative diagnosis. Surgeon: Miriam Albarado MD Outside Installation Machinist: James Tello Complications: None. Anesthesia: Spinal. Estimated Blood Loss: See Anesthesia Record. Fluids: Please see Anesthesia Record. Description of Procedure: Mrs. Arana and her right hip were identified and marked in the preoperative holding area. She was brought back to the operating suite and placed supine on the fracture table. She was placed under general anesthesia. She was then placed in a lateral decubitus position with her right hip up. The right lower extremity was prepped and draped in my normal sterile fashion. Timeout was performed. The Truveris robotic arm was used to assist with the surgery. A pelvic array was placed into the iliac crest through three 1 cm incisions. The surgery was made more difficult by the patient's body habitus. A pelvic aray was placed in the patient's iliac crest through 3 small poke incisions. A posterior approach was utilized. An approximately 15 cm incision was made in the skin and dissection carried down to the muscle fascia which was then split in line with skin incision. A checkpoint was placed in the greater trochanter. The short external rotators were identified and tagged and detached. A capsulotomy was performed and the hip dislocated. A femoral neck osteotomy was performed at the pre- templated level measuring down from the femoral head 51mm. The head was removed and acetabulum exposed. Labrum was removed. The acetabulum was then registered with the robot. The robotic arm was then used to ream with a 53 reamer. The robot then was again used to place a 54 Trident cup in 40 of tilt and 23 of anteversion. A liner was then placed. The proximal femur was exposed and prepared with a cookie cutter followed by reaming and broaching to a size 5. We trialed with a +2.5 head. After thorough irrigation a final Accolade 2 size 5 stem with 127 neck was placed. Leg length and offset were checked with the robot and were good. A final +2.5 ceramic head was placed and the hip reduced. Irricept solution was used to irrigate throughout the case. It was followed by normal saline irrigation. Joint cocktail was injected throughout soft tissue. The capsulotomy was repaired with Ethibond. 1 g of TXA was allowed to sit in the wound for 5 minutes and then suctioned out. Short external rotators were also repaired with Ethibond. 1 g of vancomycin powder was placed into the wound. The muscle fascia was then repaired with #1 Vicryl. I then left my dietetic assistant to close the subcutaneous tissue with 2-0 Vicryl followed by running 4 -0 Monocryl skin followed by Dermabond and a sterile dressing. The patient with any placed back into supine position and taken to recovery room in the care of anesthesia.
[2017-02-02] MEDS ORDERED: LIDOCAINE 2%/EPI 1:200,000 20ml SDV PF ONE (11:29)
[2017-02-02] MEDS: HYDROMORPHONE 2 MG/ML INJECTION IVP PRN ×2 (11:35→11:46)
--- NOTE | 2017-02-02 11:59 | Anesthesia Postoperative Note ---
- Date and Time Date: 02/02/17 Time: 11:59 - Status Patient Participated in Evaluation: Patient Participated in Person Vital Signs: Temperature 97.5 F 02/02/17 11:07 Pulse Rate 88 02/02/17 11:50 Respiratory Rate 13 02/02/17 11:50 Blood Pressure 163/83 H 02/02/17 11:50 Pulse Oximetry 99 02/02/17 11:50 Respiratory Function: Airway Patent Cardiovascular Function: Regular Pulse EKG: Sinus Rhythm Mental Status: Alert and Oriented (3) Pain Intensity: 3 Hydration: Taking PO Fluids, IV Infusing Complications During Recover: None Apparent - Follow-Up Instructions Instructions: Per Surgeon
[2017-02-02] MEDS ORDERED: DiphenhydrAMINE 25 MG CAPSULE PO PRN (12:13)
[2017-02-02] MEDS ORDERED: ONDANSETRON 4 MG/2 ML INJECTION IVP PRN (12:13)
[2017-02-02] MEDS ORDERED: LORazepam 1 MG TABLET PO PRN (12:13)
[2017-02-02] MEDS ORDERED: OMEPRAZOLE 20 MG CAPSULE PO SCH (12:13)
[2017-02-02] MEDS ORDERED: ARTIFICIAL TEARS 15ml OP PRN (12:13)
[2017-02-02] MEDS ORDERED: DiphenhydrAMINE 50 MG/ML INJECTION IVP PRN (12:13)
[2017-02-02] MEDS ORDERED: NOZIN NASAL SWAB NAS ONE (12:13)
[2017-02-02] MEDS ORDERED: FALL RISK - PHARMACY CONSULT XX ONE (12:31)
[2017-02-02] MEDS: ACETAMINOPHEN 325 MG TABLET PO SCH ×4 (12:41→22:56)
--- NOTE | 2017-02-02 12:46 | XRay Report ---
Indication: postoperative image PROCEDURE: XR pelvis w/ 1 view RT hip: Encounter: Initial Comparison: CT pelvis dated January 19, 2017 Findings: Postoperative changes of right total hip replacement are seen. There is expected postoperative subcutaneous gas. No evidence of hardware failure or acute fracture. No retained radiopaque surgical instruments or sponges seen. Position of the cortex is somewhat limited due to patient body habitus. There is also an external object which obscures portions of the posterior cortex on the crosstable lateral view. Impression: New right total hip prosthesis without evidence of immediate complication. .
[2017-02-02] MEDS: POLYETHYL GLYCOL 3350 17gm PACKET PO SCH (12:58)
[2017-02-02] MEDS: DOCUSATE SODIUM 100 MG CAPSULE PO SCH ×2 (12:58→22:56)
[2017-02-02] MEDS: FLUoxetine 20 MG CAPSULE PO SCH (13:14)
[2017-02-02] MEDS: FERROUS SULFATE 324 MG TABLET PO SCH (13:14)
[2017-02-02] MEDS: DEXAMETHASONE 4 MG/ML INJECTION IVP SCH ×2 (13:15→19:38)
[2017-02-02] MEDS: CLINDAMYCIN PB 900 MG/50 ML BAG IV SCH ×2 (14:04→19:41)
[2017-02-02] MEDS: NOZIN NASAL SWAB NAS SCH ×2 (14:04→22:57)
[2017-02-02] MEDS ORDERED: SALINE FLUSH 10ml SYRINGE IV PRN (16:52)
[2017-02-02] MEDS: TRAMADOL 50 MG TABLET PO PRN ×2 (17:56→23:57)
[2017-02-02] MEDS ORDERED: SENNOSIDES 8.6 MG TABLET PO SCH (21:00)
[2017-02-02] MEDS: ASPIRIN *EC* 81 MG TABLET PO SCH (22:56)
[2017-02-03] MEDS: CLINDAMYCIN PB 900 MG/50 ML BAG IV SCH (02:15)
[2017-02-03] MEDS: NS 1,000 ML IV SCH ×2 (02:15→15:00)
[2017-02-03] MEDS: NOZIN NASAL SWAB NAS SCH ×2 (06:17→13:09)
[2017-02-03] MEDS ORDERED: OMEPRAZOLE 20 MG CAPSULE PO SCH (06:30)
[2017-02-03] MEDS ORDERED: SENNOSIDES 8.6 MG TABLET PO PRN (07:05)
--- NOTE | 2017-02-03 08:11 | Orthopedic Progress Note ---
Date: Subjective/Severity of Illness: Krysta is doing well this AM. Pain is controlled. She has been mobile with good tolerance. The severe hip pain she had pre op is gone. She had a tachycardia with rate of 140 while walking yesterday. Since that time it has been normal. She was not symptomatic when this occurred. Denies any CP, pressure, racing hr, chest tightness, SOA or other symptoms overnight. She is on Telemetry. Orthopedic Objective PO Vital signs: Temperature 99.1 F 02/03/17 07:50 Pulse Rate 82 02/03/17 07:50 Respiratory Rate 14 02/03/17 07:50 Blood Pressure 133/73 02/03/17 07:50 Pulse Oximetry 93 02/03/17 07:50 Height and Weight: Height 5 ft 3 in Weight 257 lb 15.053 oz Body Mass Index 42.8 - Constitutional General Appearance: Present: alert, cooperative, no acute distress, obese - Respiratory Exam Present: non-labored - Cardiovascular Exam Present: Regular Rate/Rhythm Capillary Refill: < 2-3 Seconds - Extremities Exam Extremities: Present: pulses intact, normal capillary refill. Absent: calf tenderness - Hip Exam Hip Exam: Present: alignment normal - Surgical Site Incision: clean, dry, intact, dressing intact (Incisional wound vac functioning well and has no drainage.), no drainage - Integumentary Exam Present: pink, warm, dry - Neurological Exam Present: no deficits - Labs Result Diagrams: 02/03/17 04:19 02/03/17 04:19 Abnormal lab results 02/03/17 02/03/17 Range/Units 04:19 04:19 Hgb 10.3 L D (12-16) GM/DL Hct 31.2 L D (36-46) % Sodium 132 L (134-144) MEQ/L Carbon Dioxide 21 L (22-30) MEQ/L BUN 22.0 H (7-17) MG/DL Glucose 133 H (65-110) MG/DL Calculated Osmolality 260 L (261-280) MOSM/KG H & H 02/02/17 02/03/17 Range/Units 07:23 04:19 Hgb 12.0 10.3 L D (12-16) GM/DL Hct 35.8 L 31.2 L D (36-46) % Orthopedic Assessment and Plan (1) Primary osteoarthritis of right hip Status: Acute Assessment and Plan: Monitor for recurrent tachycardia event. If this occurs we will consult Dr Lee. Current anti-coagulation protocol for VTE prophylaxis. SCD's. PT/OT services to improve independent function. Discharge Planning per Case Management. - Anticoagulation Therapy Anticoagulation: ASA 81 mg PO BID x6 weeks Hospital Course Summary Disclaimer: The visit summary below is not to be considered part of the above Progress Note.
[2017-02-03] MEDS: FERROUS SULFATE 324 MG TABLET PO SCH (08:43)
[2017-02-03] MEDS: ACETAMINOPHEN 325 MG TABLET PO SCH ×2 (08:44→13:09)
[2017-02-03] MEDS: DOCUSATE SODIUM 100 MG CAPSULE PO SCH (08:46)
[2017-02-03] MEDS: POLYETHYL GLYCOL 3350 17gm PACKET PO SCH (08:46)
[2017-02-03] MEDS: ASPIRIN *EC* 81 MG TABLET PO SCH (08:46)
[2017-02-03] MEDS: FLUoxetine 20 MG CAPSULE PO SCH (08:46)
[2017-02-03] MEDS: TRAMADOL 50 MG TABLET PO PRN ×2 (08:47→14:59)
[2017-02-03 11:57] VITALS: RESP 18
[2017-02-03 15:04] VITALS: BP 136/72; PULSE 71; TEMP 97.1; O2SAT 99
--- NOTE | 2017-02-03 16:30 | Discharge Summary ---
Orthopedic Discharge Info Date of admission: 02/02/17 06:44 Primary care physician: Bruce Wade MD Attending Physician: Cash Albarado MD Consults: 02/02/17 06:53 Consult to Anesthesiology [CONS] Routine Consulting Provider: CATHY Landa Reason For Exam: Preoperative Assessment 02/02/17 12:13 Case Management Consult [CONS] Routine Reason For Exam: Discharge Planning DME-Walker [CONS] Routine Weight: 246 lb 5.865 oz Comment: change dressing in 2 weeks Total Joint Outpatient Therapy [CONS] Routine Comment: change dressing in 2 weeks 02/03/17 04:38 Case Management Consult [CONS] Routine Reason For Exam: noc ox - Discharge Diagnosis (1) Primary osteoarthritis of right hip Status: Acute - Procedures Procedures: Procedures Right SHANE - Laboratory Result Diagrams: 02/03/17 04:19 02/03/17 04:19 Laboratory: Abnormal lab results 02/03/17 02/03/17 Range/Units 04:19 04:19 Hgb 10.3 L D (12-16) GM/DL Hct 31.2 L D (36-46) % Sodium 132 L (134-144) MEQ/L Carbon Dioxide 21 L (22-30) MEQ/L BUN 22.0 H (7-17) MG/DL Glucose 133 H (65-110) MG/DL Calculated Osmolality 260 L (261-280) MOSM/KG H & H 02/02/17 02/03/17 Range/Units 07:23 04:19 Hgb 12.0 10.3 L D (12-16) GM/DL Hct 35.8 L 31.2 L D (36-46) % Orthopedic Discharge HPI - HPI Comments This patient was admitted for elective surgical tx of end stage degenerative joint disease that failed to respond to conservative treatment. Further details of this is found in the admission H&P. Orthopedic Hospital Course Hospital course: 02/03/17 16:28 After appropriate preoperative clearance and signing of operative consent, the patient was given IV antibiotics, according to orthopedic protocol. The patient was taken to the operating room and underwent elective joint arthroplasty. Following surgery, antibiotics were discontinued less than 24 hours according to joint protocol. Appropriate anticoagulants were initiated and SCDs added for DVT prevention. The dressing was clean, dry, and intact. Pain control was obtained via multimodal approach. Bowel motivation addressed with scheduled and PRN medications. Early mobilization was initiated through PT services. Discharge arrangements made by a collaborative effort between the patient and Case Management. Follow-up is scheduled in 2-3 weeks. Discharge instructions given by orthopedic providers and nursing staff at discharge. Discharge condition was good. Ongoing care required?: No - Postoperative Anemia patient received IVF, labs monitored daily, no intervention required, HGB drop- acceptable Discharge Plan - Med Rec/Dispo Referrals/Follow Up: Cash Albarado MD [Physician] - 02/24/17 1:15 pm [place] Instructions: [facility] [place]o Postop Instructions Additional Instructions: [facility] ON 02/08/2017 AT 8:45AM FOR PHYSICAL THERAPY EVAL. PHONE Prescriptions: New Acetaminophen [Tylenol] 650 mg PO QID #100 tab Aspirin *EC* [Ecotrin] 81 mg PO BID #84 tab Tramadol [Ultram] 50 - 100 mg PO Q6H PRN #60 tab PRN Reason: Pain Continue Hydrocodone/Acetaminophen [Lortab 5-325 mg Tablet] 1 - 2 tab PO Q4HPRN PRN # 20 tab PRN Reason: PAIN Multivitamin [Multivitamins] 1 each PO DAILY Omeprazole [Prilosec] 20 mg PO DAILY Ferrous Sulfate [Iron] 325 mg PO DAILY Simethicone [Gas-X] 125 mg PO PRN PRN PRN Reason: Prn Orders Fluoxetine HCl [Prozac] 20 mg PO DAILY #0 cap Metoprolol Tartrate [Lopressor] 25 mg PO BID #0 Artificial Tears [Tears Naturale] 1 drop OP PRN PRN PRN Reason: Dry Eyes Discontinued Aspirin 81 mg PO DAILY #0 tab Acetaminophen [Tylenol] 1,000 mg PO Q6-8HPRN PRN PRN Reason: Pain - Disposition 01 Discharged Home, Self-Care - Dismissal Complete Discharge Instructions are:: Complete
[2017-02-04] MEDS ORDERED: BISACODYL 10 MG SUPPOSITORY RECTALLY SCH (20:00)
== END 2017-02-03 16:45 | disposition home or self-care (01) | DRG 470 ==
LOC: SRG 06:44
PROVIDERS: ADMIT Orthopaedic Surgery; ATTEND Orthopaedic Surgery

== ENCOUNTER 2017-02-19 22:18 | Inpatient (IN) ==
[2017-02-19] MEDS ORDERED: METOCLOPRAMIDE 10mg/2ml INJECTION IVP PRN (23:14)
[2017-02-19] MEDS ORDERED: ONDANSETRON 4 MG/2 ML INJECTION IVP PRN (23:14)
[2017-02-19] MEDS: LR 1,000 ML IV SCH (23:56)
[2017-02-20 00:16] VITALS: BMI 42.2
[2017-02-20] MEDS: HYDROMORPHONE 2 MG/ML INJECTION IVP PRN ×2 (04:36→07:22)
[2017-02-20] MEDS: LR 1,000 ML IV SCH ×2 (07:23→15:35)
[2017-02-20] MEDS ORDERED: SIMETHICONE 125 MG CAPSULE PO PRN (11:03)
[2017-02-20] MEDS ORDERED: TRAMADOL 50 MG TABLET PO PRN (11:03)
[2017-02-20] MEDS ORDERED: ARTIFICIAL TEARS 15ml OP PRN (11:03)
[2017-02-20] MEDS: OMEPRAZOLE 20 MG CAPSULE PO SCH (13:23)
[2017-02-20] MEDS: FLUoxetine 20 MG CAPSULE PO SCH (13:23)
[2017-02-20] MEDS: ACETAMINOPHEN 325 MG TABLET PO SCH ×3 (13:24→20:46)
--- NOTE | 2017-02-20 14:53 | History and Physical ---
DATE OF VISIT 02/20/2017 REASON FOR ADMISSION Incarcerated umbilical hernia and bowel obstruction. HISTORY OF PRESENT ILLNESS Krysta began to have trouble two days ago on around 5 or 5:30 p.m. She started having her issues after she overate for dinner. She then had a Pepsi after eating and also took a tramadol. Following these three events she developed nausea and vomiting. She vomited significantly that evening. She was doing better yesterday morning and but in the afternoon she had a few more episodes of emesis. night she had a tremendous amount of "gut pain" that she described as crampy. Her pain was 10 out of 10 overnight. Her pain was somewhat better on Wednesday from a pain standpoint but since she could not eat she went to the emergency department on Wednesday evening. Workup there revealed an umbilical hernia as a source of bowel obstruction due to incarceration. Her pain is now 3 out of 10 in severity and she does still report some nausea but she feels better. She was transferred down to [facility] as a direct admit given the lack of a surgeon at [facility]. PAST MEDICAL HISTORY 1. Hypertension. 2. Coronary artery disease status post CABG x 3 on 08/14/2016. 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 Lee. 3. Obesity with BMI greater than 40. 4. Hypercholesterolemia. 5. History of TIA x 2 in March 2016. 6. Anxiety. 7. Gastroesophageal reflux disease. 8. Osteoarthritis. PAST SURGICAL HISTORY 1. CABG x 3 - 08/14/[address] Rony Proctor. 2. Right total hip arthroplasty - 02/02/[address] Albarado at [facility]. ALLERGIES The patient has multiple allergies. Please see the EMR for the complete list. MEDICATIONS The patient's home medications were reviewed. See the admission medical reconciliation. SOCIAL HISTORY The patient is . She has two children. She is a never-smoker. She denies alcohol or drug use. FAMILY HISTORY Mother - aneurysm, diabetes, hypertension. Father - Stroke, liver disease. REVIEW OF SYSTEMS Ten-point review of systems was negative except for History of Present Illness and the following: GENERAL: She reports chills and sweats through this episode but no fever. CARDIOVASCULAR: She felt like her heart was racing during this episode. GASTROINTESTINAL: She reports no flatus and increased belching with this episode. MUSCULOSKELETAL: She has joint pain mostly affecting her knees and shoulders. She also has posterior tibial tendon dysfunction. NEUROLOGIC: She reports sciatica of the right lower extremity and a history of TIAs. HEMATOLOGIC: She is on aspirin 81 mg daily following her hip replacement. LABORATORY DATA White blood cell count at [facility] was 11.2 with 92% segmented neutrophils. Her hemoglobin was 11.4 and platelet count was 388. Her white blood cell count has decreased to 9.0 this morning with 70% neutrophils. IMAGING CT scan of the abdomen and pelvis from [facility] was reviewed by gerhard and report. On personal review of the images there is a transition of small bowel dilatation to decompressed bowel at the site of her hernia which does contain a bowel loop. The hernia defect is fairly broad at 2.7 cm in relation to the size of the hernia sac. PHYSICAL EXAMINATION VITAL SIGNS: Temperature 98.2, pulse 89, blood pressure 135/65, respiratory rate 16, oxygen saturation 93% on room air. GENERAL: The patient is awake and alert in no acute distress. HEENT: Sclerae clear. Extraocular muscles intact. NECK: Supple with a midline trachea. HEART: Regular rate and rhythm. LUNGS: Clear to auscultation bilaterally. ABDOMEN: Soft, obese, nontender. She does have an umbilical hernia which was incarcerated at the time of initial exam. With manipulation reduction of the hernia was able to be performed. EXTREMITIES: No clubbing, cyanosis or edema. NEUROLOGIC: Cranial nerves II-XII are grossly intact. PSYCHIATRIC: Normal mood and affect. IMPRESSION 1. Incarcerated umbilical hernia with obstruction - this was able to be successfully reduced this morning. 2. Small bowel obstruction related to incarcerated hernia. PLAN 1. Reduction of her hernia was accomplished this morning. 2. I will start her on a clear liquid diet but limit her to noncarbonated liquids with an amount of no more than 8 ounces every eight hours. 3. Follow bowel function and monitor for increasing abdominal pain as evidence of bowel compromise. 4. I did explain to Krysta the diagnosis of a hernia and the categorizations of incarcerated or strangulated. It did explain how her bowel obstruction was likely from her hernia since she has not had prior abdominal surgeries. 5. I explained that an elective hernia repair would be better, especially following weight loss given her BMI of greater than 40. I explained that elective hernia repair would allow for a robotic approach to her hernia repair which would likely give a more durable repair. She would need to have her dilated bowel from her bowel obstruction resolved and I also advised that she target weight loss down to 230 pounds so that her BMI would be less than 40 to help prevent recurrence. CHIDI
[2017-02-20] MEDS: ASPIRIN *EC* 81 MG TABLET PO SCH (20:46)
[2017-02-21] MEDS: LR 1,000 ML IV SCH ×2 (00:36→09:06)
[2017-02-21] MEDS: OMEPRAZOLE 20 MG CAPSULE PO SCH (06:24)
[2017-02-21 07:46] VITALS: PULSE 76
[2017-02-21] MEDS ORDERED: FERROUS SULFATE 324 MG TABLET PO SCH (09:00)
[2017-02-21] MEDS: FLUoxetine 20 MG CAPSULE PO SCH (09:10)
[2017-02-21] MEDS: ASPIRIN *EC* 81 MG TABLET PO SCH (09:10)
[2017-02-21] MEDS: ACETAMINOPHEN 325 MG TABLET PO SCH ×2 (09:10→14:36)
[2017-02-21 16:21] VITALS: BP 136/61; RESP 18; TEMP 97.5; O2SAT 97
--- NOTE | 2017-02-22 08:38 | Progress Note ---
DATE OF VISIT 02/21/2017 REASON FOR VISIT Follow bowel obstruction. SUBJECTIVE Krysta has done well since yesterday. She started having liquid bowel movements and has had numerous liquid stools overnight. She reports some mild tenderness in the umbilical region but no significant pain. She was advanced earlier by telephone to a regular diet and she has tolerated this well. She denies any current nausea. OBJECTIVE VITAL SIGNS: Temperature 98.1, pulse 76, blood pressure 149/64, respiratory rate 16, oxygen saturation 94% on room air. GENERAL: The patient is awake and alert, in no acute distress. HEART: Regular rate and rhythm. LUNGS: Clear to auscultation bilaterally. ABDOMEN: Soft, nontender, nondistended. Her umbilical hernia remains reducible. IMPRESSION 1. Incarcerated umbilical hernia with prior obstruction - able to be reduced and her hernia remains reducible. 2. Small bowel obstruction related to incarcerated hernia - resolved. 3. Hypertension - chronic, stable. 4. Obesity with BMI greater than 40. 4. Gastroesophageal reflux disease. 5. Anxiety - stable. PLAN 1. She was advanced to a regular diet today and is tolerating this well. 2. I think she is ready for dismissal. See discharge summary. MTDD
--- NOTE | 2017-02-22 09:13 | Discharge Summary ---
ATTENDING PHYSICIAN Moo Gibbons MD REASON FOR ADMISSION Incarcerated umbilical hernia with bowel obstruction. DISCHARGE DIAGNOSES 1. Incarcerated umbilical hernia with obstruction - reduced during hospital stay manually. 2. Small bowel obstruction secondary to incarcerated umbilical hernia. 3. Hypertension - chronic, stable. 4. Obesity with BMI greater than 40 - chronic, stable. 5. Anxiety - chronic, stable. 6. Gastroesophageal reflux disease - chronic, stable. 7. Status post recent right hip total arthroplasty - stable. CONSULTATIONS None. PROCEDURES None. BRIEF HOSPITAL COURSE The patient was admitted as a direct admit following transfer from [facility] in [place]. She had had ER evaluation at that facility that had shown an incarcerated umbilical hernia as a cause of a bowel obstruction. There was no evidence of strangulation on the CT scan and clinically she was not having significant pain. On the morning of 02/20/2017 I evaluated the patient and was able to manually reduce her hernia at the bedside. Following this she was started on a clear liquid diet. She was kept on clear liquids until she showed return of bowel function. When she was having multiple loose stools she was advanced to a regular diet. She tolerated this well and was dismissed on 02/21/2017. DISPOSITION Home by private vehicle. CONDITION ON DISCHARGE Good. DISCHARGE INSTRUCTIONS DIET: Regular diet as tolerated. ACTIVITY. She should follow her post hip replacement instructions. WOUND CARE: None required. FOLLOWUP: The patient should follow up in my clinic when she has reached her target weight of 230 pounds. She can then schedule an elective robotic umbilical hernia repair. MEDICATIONS: See discharge medical reconciliation. MTDD
== END 2017-02-21 16:35 | disposition home or self-care (01) | DRG 394 ==
LOC: SRG 23:50
PROVIDERS: ADMIT Surgery; ATTEND Surgery

== ENCOUNTER 2017-03-21 02:11 | Inpatient (IN) ==
[2017-03-21 03:09] VITALS: BMI 40.8
[2017-03-21] MEDS ORDERED: CALCIUM CARBONATE Chewable 500mg TABLET PO ONE (03:10)
[2017-03-21] MEDS ORDERED: ONDANSETRON 4 MG/2 ML INJECTION IVP PRN (03:10)
--- NOTE | 2017-03-21 03:20 | History & Physical Report ---
History of Present Illness Date: 03/21/17 Chief complaint: abd pain HPI: Pleasant 61-year-old white female with a history of a periumbilical hernia that had previously been evaluated and reduced. She had a recurrence of some abdominal pain that started yesterday that has been waxing and waning, it's gradually worsened throughout the day and gotten quite severe up to a 10 out of 10 and therefore had to call an ambulance. She's not had any vomiting, last bowel movement was yesterday morning. She is not sure she's had any flatus today. Her abdominal pain currently is 8/10, it was improved with some Dilaudid and fentanyl that she received in the emergency room at [facility] in [place]. There a CT scan of the abdomen demonstrated acute inflammatory changes of the infraumbilical midline hernia with findings of a partial obstruction and incarceration recommended surgical consultation. Also incidentally noted was a moderate size hiatal hernia, small volume pelvic free fluid sigmoid diverticulosis without diverticulitis and a malrotated right kidney was stable She denies any chest pain anginal type symptoms. She did undergo a triple bypass surgery July 2016 at [facility] in [place], following that she had a infection of the vein harvest site that resolved. She underwent successful total hip arthroplasty on February [address] Albarado at [facility]. Dr Cervantes At the [facility] in [place] spoke with Dr. Cardenas who requested hospitalist admit here and for him to consult on the incarcerated hernia in the morning. Review of Systems All systems PM: 10-point ROS was reviewed, no additional remarkable complaints except Past Medical History Patient Stated Medical History Transient Ischemic Attacks ( Yes TIA) Other HEENT Yes: reading glasses Hypertension Yes Sleep Apnea No Gastroesophageal Reflux Yes Disease Other GI Yes: current ventral hernia and bowel obstruction Hx Renal Disease CKD 3-patient denies history when asked Other Hematologic Yes: blood transfusion with heart surgery in July Osteoarthritis Yes Blood Transfusions Yes: with heart surgery in July Depression Yes Post Menopausal Yes Clinic Medical History (Last Reviewed 03/17/17 @ 13:09 by CATHY Vieira) HTN (hypertension) (Chronic Medical) High cholesterol (Chronic Medical) Hx of TIA (transient ischemic attack) and stroke (Resolved Medical) Surgical History: peripheral catheterizatio. CABG x 29 Jul 2016. Rt SHANE 02-02-17 Family History: Family History (Last Reviewed 03/17/17 @ 13:09 by CATHY Vieira) Father Liver disease Stroke Mother Aneurysm Diabetes HTN (hypertension) Family History Updates: [place], sibs healthy - Social History Smoking status: Never smoker Housing: house Household members: spouse, children (has a special needs child) Current occupational status: employed Medications Home Medications Medication Instructions Recorded Confirmed Type Fluoxetine HCl [Prozac] 20 mg PO DAILY #0 cap 06/29/16 02/20/17 History Metoprolol Tartrate [Lopressor] 25 mg PO BID #0 08/20/16 02/20/17 History Omeprazole [Prilosec] 20 mg PO DAILY 01/26/17 02/20/17 History Artificial Tears [Tears Naturale] 1 drop OP PRN PRN 02/01/17 02/20/17 History Simethicone [Gas-X] 125 mg PO PRN PRN 02/01/17 02/20/17 History Allergies Allergy/AdvReac Type Severity Reaction Status Date / Time doxycycline Allergy Intermediate Swelling Verified 03/17/17 10:34 of Lip/Tongue/Throat hydrochlorothiazide Allergy Intermediate Swelling Verified 03/17/17 10:34 [From Hyzaar] of Lip/Tongue/Throat iodine Allergy Intermediate facial Verified 03/17/17 10:34 tingling and swelling roof of mouth. losartan [From Hyzaar] Allergy Intermediate Swelling Verified 03/17/17 10:34 of Lip/Tongue/Throat NSAIDS (Non-Steroidal Allergy Intermediate Swelling Verified 03/17/17 10:34 Anti-Inflamma of Lip/Tongue/Throat Penicillins Allergy Intermediate THROAT Verified 03/17/17 10:34 'TIGHTENS' povidone-iodine Allergy Intermediate facial Verified 03/17/17 10:34 tingiling and swelling roof of mouth procaine Allergy Intermediate FACIAL Verified 03/17/17 10:34 TINGLING AND THROAT 'TIGHTENS' rosuvastatin [From Crestor] Allergy Intermediate edema Verified 03/17/17 10:34 Ucltumh-Mao-Nnv Reductase Allergy Intermediate MYALGIAS Verified 03/17/17 10:34 Inhibitor amoxicillin AdvReac Severe Vomiting Verified 03/17/17 10:48 Exam Vital Signs: Temperature 98.6 F 03/21/17 02:57 Pulse Rate 84 03/21/17 02:57 Respiratory Rate 16 03/21/17 02:57 Blood Pressure 164/73 H 03/21/17 02:57 Pulse Oximetry 95 03/21/17 02:58 Telemetry Rhythm: Sinus Rhythm Height/Weight/BMI: Height 1.63 m Weight 108.1 kg Body Mass Index 40.8 - Constitutional Present: no acute distress, obese - Routine HEENT Exam Head: Present: normocephalic Eye: Present: EOMI - Routine Respiratory Exam Present: CTA bilaterally - Routine Cardiovascular Exam Present: RRR, S1, S2, no murmur - Routine Abdominal Exam Present: soft, tenderness, hernia Comments: . Umbilical hernia is actually difficult to see but is palpable by the nurse - Routine Extremities Exam Present: no edema. Absent: cyanosis, clubbing - Routine Neurological Exam Present: alert, oriented X3. Absent: motor deficit, altered mental status Results - Labs Labs: from [facility] collected at on the white blood cell count 8.5 hemoglobin 11.7 platelets 239 sodium 135 potassium 3.8 chloride 102 bicarb bit low at 20 calcium 9.3 AST 18 ALT 18 alk phos 75 albumin 3.6 amylase 54 lipase 161 - Imaging and Cardiology CT scan - abdomen Additional comments: performed at [facility] results noted in the HPI Assessment and Plan (1) Incarcerated umbilical hernia Current visit: Yes Status: Acute (2) Hypertension Current visit: No Status: Acute (3) CAD (coronary artery disease) Current visit: No Status: Chronic (4) S/P CABG x 3 Current visit: No Status: Chronic Assessment and Plan: 1. incarcerated periumbilical hernia 2. Coronary artery disease status post CABG x 29 Jul 2016, no anginal signs, she is "cleared" for surgery. Has been through surgery in Jan 29. HTN 4. Depression (presumed) on prozac Dr Cardenas to benal for surgical correction later this am. - Physician Narrative Narrative: Date: 03/21/17 Time: 7 Hospital Course Summary Disclaimer: The visit summary below is not to be considered part of the above Progress Note.
[2017-03-21] MEDS: HYDROMORPHONE 2 MG/ML INJECTION IVP PRN ×2 (03:47→06:51)
[2017-03-21] MEDS: LR 1,000 ML IV SCH ×2 (03:49→14:02)
--- NOTE | 2017-03-21 09:24 | Consultation ---
DATE OF CONSULTATION 03/21/2017 HISTORY OF PRESENT ILLNESS This patient is 61 years old. This patient was admitted to [facility] on 02/20/[address] Gibbons with an incarcerated umbilical hernia with bowel obstruction. Dr. Gibbons was able to reduce the incarcerated umbilical hernia on 02/20/2017. The patient was discharged from the hospital on 02/21/2017. The plan at the time of discharge was for the patient to attempt to lose some additional weight and then come back at some point and undergo an elective umbilical hernia repair. The patient did experience incarceration of the umbilical hernia again on 2016. The patient did go into the emergency room at [place], [place] late on the night of 03/20/2017 for evaluation. The patient did undergo a CT scan of the abdomen and pelvis during evaluation at the emergency room. This CT scan showed the incarcerated umbilical hernia with findings suggesting partial small bowel obstruction at the incarcerated hernia. The CT scan also showed a moderate sized hiatal hernia and sigmoid colon diverticulosis. The patient was transferred from the emergency room at [place], [place] to [facility] early on the morning of 03/21/2017 for further evaluation and treatment. PHYSICAL EXAMINATION VITAL SIGNS: Temperature is 97.5 degrees Fahrenheit oral. Pulse is 76. Respiratory rate is 18. Blood pressure is 136/61. Oxygen saturation is 97% on room air. Height is 1.63 meters. Weight is 112.9 kg. BMI is 42.7 kg per meters squared. ABDOMEN: The abdomen is soft and nontender. The patient does have an incarcerated umbilical hernia. There is no redness of the skin at this area. There is no generalized abdominal tenderness. The abdomen is obese. LABORATORY DATA White blood cell count is 9000 with no bands. Hemoglobin is 10.5. Hematocrit is 32.2. IMAGING DATA This patient did have a CT scan of the abdomen and pelvis on 03/20/2017 at [place], [place]. This does show an incarcerated umbilical hernia. There is a partial small bowel obstruction which appears to be due to involvement of the small bowel within the incarcerated umbilical hernia. The CT scan also shows a moderate sized hiatal hernia and sigmoid colon diverticulosis. IMPRESSION 1. Incarcerated umbilical hernia. 2. Partial small bowel obstruction due to incarcerated umbilical hernia. 3. Morbid obesity. 4. Moderate sized hiatal hernia. 5. Sigmoid colon diverticulosis. 6. Coronary artery disease. 7. Anemia. TREATMENT I was able to reduce the incarcerated abdominal hernia at the bedside of the patient today on the surgical unit. RECOMMENDATIONS 1. Observe the patient for a period of time in the hospital to make sure that she does not develop any abdominal pain following reduction of the incarcerated umbilical hernia. The patient can be fed at this time and we can see how she tolerates her diet. If the patient improves clinically, she can be discharged from the hospital today or tomorrow. 2. I did talk with the patient about returning back to undergo an elective umbilical hernia repair operation in the near future since she has had these two episodes of incarceration of the hernia approximately 30 days apart from one another. 3. The patient should also undergo evaluation of her anemia. CHIDI
[2017-03-21] MEDS ORDERED: ACETAMINOPHEN 325 MG TABLET PO PRN (10:11)
[2017-03-21] MEDS ORDERED: ASPIRIN *EC* 81 MG TABLET PO SCH (10:11)
[2017-03-21] MEDS ORDERED: OMEPRAZOLE 20 MG CAPSULE PO SCH (10:15)
[2017-03-21] MEDS ORDERED: FLUoxetine 20 MG CAPSULE PO SCH (10:15)
[2017-03-21 15:20] VITALS: PULSE 66; RESP 20; TEMP 96.8; O2SAT 94
[2017-03-21 16:51] VITALS: BP 106/57
--- NOTE | 2017-03-21 17:01 | Discharge Summary ---
Discharge Information Date of admission: 03/21/17 02:42 Anticipated date of discharge: 03/21/17 Attending Physician: Hussein Garrett MD Consults: 03/21/17 03:15 Physician Consult [CONS] Routine Consulting Provider: Servando Cardenas Reason For Exam: incarcerated hernia Ordering Provider has Notified Process Chemist: Yes - Discharge Diagnosis (1) S/P CABG x 3 Status: Chronic (2) CAD (coronary artery disease) Status: Chronic (3) Hypertension Status: Acute (4) Incarcerated umbilical hernia Status: Acute - Laboratory Labs: 03/21/17 09:01 03/21/17 09:01 History of Present Illness HPI: Pleasant 61-year-old white female with a history of a periumbilical hernia that had previously been evaluated and reduced. She had a recurrence of some abdominal pain that started yesterday that has been waxing and waning, it's gradually worsened throughout the day and gotten quite severe up to a 10 out of 10 and therefore had to call an ambulance. She's not had any vomiting, last bowel movement was yesterday morning. She is not sure she's had any flatus today. Her abdominal pain currently is 8/10, it was improved with some Dilaudid and fentanyl that she received in the emergency room at [facility]. There a CT scan of the abdomen demonstrated acute inflammatory changes of the infraumbilical midline hernia with findings of a partial obstruction and incarceration recommended surgical consultation. Also incidentally noted was a moderate size hiatal hernia, small volume pelvic free fluid sigmoid diverticulosis without diverticulitis and a malrotated right kidney was stable She denies any chest pain anginal type symptoms. She did undergo a triple bypass surgery July 2016 at [facility] in [place], following that she had a infection of the vein harvest site that resolved. She underwent successful total hip arthroplasty on February [address] Albarado at [facility]. Dr Cervantes At the [facility] ER in [place] spoke with Dr. Cardenas who requested hospitalist admit here and for him to consult on the incarcerated hernia in the morning. Objective Vital signs: Temperature 96.8 F 03/21/17 15:20 Pulse Rate 66 03/21/17 15:20 Respiratory Rate 20 03/21/17 15:20 Blood Pressure 98/71 03/21/17 15:20 Pulse Oximetry 94 03/21/17 15:20 Height/Weight/BMI: Height 5 ft 4 in Weight 108.1 kg Body Mass Index 40.8 - Constitutional Present: no acute distress - Routine HEENT Exam Head: Present: normocephalic, atraumatic Eye: Present: EOMI, PERRL - Routine Respiratory Exam Present: CTA bilaterally. Absent: wheezes, crackles - Routine Cardiovascular Exam Present: RRR, no murmur - Routine Abdominal Exam Present: soft, non distended, non tender - Routine Extremities Exam Present: no edema. Absent: cyanosis, clubbing - Routine Skin Exam Present: intact, dry. Absent: erythema - Routine Neurological Exam Present: alert, oriented X3 - Routine Psychiatric Exam Present: normal affect Hospital Course This is a general summary of the patient's hospital course. For more details refer to the complete medical record. Hospital course: Discharge Summary: Pt has had a periumbilical hernia for 1 years and went into the ED d/t severe abdominal pain. CT was done in [facility] in [place] and it found " inflammatory changes of the infraumbilical midline hernia with findings of a partial obstruction and incarceration." from surgery was consulted and he was able to reduce the hernia this am. He recommended advancing pt's diet and if she does well then discharging her with a follow up in 1-2 weeks for an elective procedure. Pt ate a full lunch and tolerated that well. She reported passing gas, denied any n/v, f/c, abdominal pain. Pt wanted to go home for the holidays and so she was discharged and told to seek urgent care if any of her symptoms returned. okay with discharge plan. Pt will follow up with in 1-2 weeks. Discharge Plan - Discharge Disposition Disposition: Discharged Home, Self-Care *Condition: Stable Reason For Visit (Visit label in EMR): incarcerated umbilical hernia, PSBO - Discharge Medications *Discharge Medications: Continue Omeprazole [Prilosec] 20 mg PO DAILY Simethicone [Gas-X] 125 mg PO PRN PRN PRN Reason: Prn Orders Aspirin *EC* [Ecotrin] 81 mg PO BID #84 tab Acetaminophen [Tylenol] 650 mg PO PRN PRN PRN Reason: Pain Fluoxetine HCl [Prozac] 20 mg PO DAILY #0 cap Metoprolol Tartrate [Lopressor] 25 mg PO BID #0 Artificial Tears [Tears Naturale] 1 drop OP PRN PRN PRN Reason: Dry Eyes - Discharge Packet/Instructions *Diet: Advance as tolerated *Activity: As tolerated *Expected Signs/Symptoms: Mild abdominal discomfort *Notify Physician if: Severe abdominal pain, nausea or vomitting *During Business Hours Contact: Primary care doctor *After Business Hours Contact: Urgent care/ER *Pending Lab/Results: No Pending Lab - Referrals/Follow Up - Patient Handouts - Dismissal Complete Discharge Instructions are:: Complete Physician Narrative - Narrative Attestation Narrative: Date: 03/21/17 Time: 2061
== END 2017-03-21 17:35 | disposition home or self-care (01) | DRG 394 ==
LOC: SUATTDRO 02:42 → SRG 02:42
PROVIDERS: ADMIT Pediatrics; ATTEND Internal Medicine